=== PATIENT | male | born 1950 | race Caucasian/White ===

== ENCOUNTER 2020-05-28 13:22 | Outpatient (CLI) | payer MEDICARE, SELFPAY ==
--- NOTE | ~2020-05-28 | CT_ITS ---
EXAMINATION: CT lung screening DATE: 05/28/2020 13:44 INDICATION: Personal history of nicotine dependence, current smoker with 50 pack year history TECHNIQUE: Computed tomography (CT) of the chest was performed without intravenous contrast. The dose -length product (DLP) was 109.52 mGy-cm. Automated exposure control and iterative reconstruction tech [employer] were employed. COMPARISON: 05/24/2019 FINDINGS: There is mild emphysema. Stable small pulmonary nodules are present, the largest of which m easures 3 mm in the left lower lobe on image 63. No new pulmonary nodules are identified. The lungs a re free of acute opacities. There is no pleural effusion or pneumothorax. There is mild mediastinal l ymphadenopathy, likely reactive. The heart size is normal. Calcified coronary artery atherosclerosis is noted. There is a small amount of mucus in the right mainstem bronchus. An 8.5 cm cyst is noted in the upper pole of the right kidney. There is a partially imaged endoluminal stent graft in the abdom inal aorta. IMPRESSION: 1. Lung-RADS category 2: Benign appearance or behavior. Continue annual screening with noncontrast lo w-dose chest CT in 12 months. Reviewed, dictated and finalized at location A. IMPRESSION: 1. Lung-RADS category 2: Benign appearance or behavior. Continue annual screeni ng with noncontrast low-dose chest CT in 12 months.
== END 2020-05-28 13:23 | disposition home or self-care (01) ==
PROVIDERS: PCP Family Medicine; Visit Provider Internal Medicine Critical Care Medicine
DX: Z12.2 Encounter for screening for malignant neoplasm of respiratory organs (principal); Z87.891 Personal history of nicotine dependence
CPT/HCPCS: G0297

== ENCOUNTER 2022-03-17 13:52 | Outpatient (CLI) | payer MEDICARE, SELFPAY ==
--- NOTE | ~2022-03-17 | CT_ITS ---
EXAMINATION:CT lung screening DATE: 03/17/2022 14:15 INDICATION: Tobacco use. Current smoker with 50 pack year history. TECHNIQUE: Computed tomography (CT) of the chest was performed without intravenous contrast. Automate d exposure control and iterative reconstruction technique were employed. The dose-length product (DLP ) was 98.16 mGy-cm. COMPARISON: Chest CT 05/28/2020 FINDINGS: There is moderate emphysema. There is stable scarring at the lung apices. Again seen is a 4 mm nodule in right middle lobe. Again seen is a 5 mm nodule at minor fissure. There is mild atelecta sis in lingula. No pleural effusion. The heart size is normal. There are coronary artery calcificatio ns. No pericardial effusion. Partially visualized is a stent graft in abdominal aorta. There are cyst s in the kidneys measuring up to 9.6 cm on the right. There is mild bilateral gynecomastia. There is mild thoracic spondylosis. IMPRESSION: 1. Lung-RADS category 2: Benign appearance or behavior. Continue annual screening with noncontrast lo w-dose chest CT in 12 months. Reviewed, dictated and finalized at location A. IMPRESSION: 1. Lung-RADS category 2: Benign appearance or behavior. Continue annual screeni ng with noncontrast low-dose chest CT in 12 months.
== END 2022-03-17 13:53 | disposition home or self-care (01) ==
LOC: ANHIMG 13:59
PROVIDERS: PCP Family Medicine; Visit Provider Physician Assistant
DX: Z12.2 Encounter for screening for malignant neoplasm of respiratory organs (principal); Z87.891 Personal history of nicotine dependence
CPT/HCPCS: 71271

== ENCOUNTER 2022-06-19 10:33 | Outpatient (CLI) | payer MEDICARE, SELFPAY ==
--- NOTE | ~2022-06-19 | CT_ITS ---
EXAMINATION: CT diagnostic chest wo con DATE: 06/19/2022 10:53 INDICATION: Shortness of breath and wheezing TECHNIQUE: Computed tomography (CT) of the abdomen and pelvis was performed without and with intraven ous contrast using a total of 130 mL Omnipaque-350 intravenous contrast with a double-bolus technique for simultaneous opacification of the renal parenchyma and renal collecting system. Automated exposu re control and iterative reconstruction technique were employed. Exam dose: 204.18 mGy-cm total exam DLP. COMPARISON: 03/17/2022 CT lung screening examinations FINDINGS: Moderate to moderately severe emphysema. Bilateral apical scarring, more prominent in the posterior right apical area, stable since 03/17/2022. Stable 4 mm middle lobe nodule and small likely benign fissural node of the minor fissure, stable sin ce 03/17/2022. Stable approximately 3 mm nodular density adjacent to the left greater fissure (series 4 image 56). No significant new or developing pulmonary density. No pulmonary infiltrate or consolidation. Thoracic aortic and coronary artery and great vessel calcifications. No thoracic aortic aneurysm. Hea rt size is normal. No pericardial effusion. No hilar or mediastinal mass lesion or lymphadenopathy is detected. Bilateral renal cysts, measuring up to 10 cm on the right. Moderately prominent biconcave compression fracture deformity of T6, new since 03/17/2022. IMPRESSION: New T6 compression fracture since 03/17/2022 Moderate to moderately severe emphysema; no significant new or developing pulmonary mass lesion since 03/17/2022 Reviewed, dictated and finalized at [facility]. Reviewed, dictated and finalized at location A. IMPRESSION: New T6 compression fracture since 03/17/2022 Moderate to moderately severe emphysema; no significant new or developing pulmo nary mass lesion since 03/17/2022
== END 2022-06-19 10:34 | disposition home or self-care (01) ==
PROVIDERS: PCP Family Medicine; Visit Provider Physician Assistant
DX: J44.9 Chronic obstructive pulmonary disease, unspecified (principal); R06.02 Shortness of breath; J43.9 Emphysema, unspecified
CPT/HCPCS: 71250

== ENCOUNTER 2022-06-26 10:39 | Outpatient (CLI) | payer MEDICARE, SELFPAY ==
--- NOTE | ~2022-06-26 | XR_ITS ---
XR thoracic spine 3V DATE: 06/26/2022 11:15 INDICATION: Thoracic spine pain TECHNIQUE: AP, lateral, swimmer views COMPARISON: 06/2022 CT chest 03/17/2022 CT lung screening FINDINGS: There is diffuse osteopenia. There is moderate loss of height and anterior wedging of T6 consistent with compression fracture. No other fracture or dislocation. The thoracic pedicles appear intact. No paraspinal soft tissue thic kening is noted. IMPRESSION: Diffuse osteopenia T6 compression fracture, new since 03/17/2022 Reviewed, dictated and finalized at location A. NAVIGATOR
--- NOTE | ~2022-06-26 | XR_ITS ---
XR lumbar spine min 4V DATE: 06/26/2022 11:15 INDICATION: Back pain TECHNIQUE: AP, lateral and coned lateral lumbosacral views. Bilateral oblique views. COMPARISON: None FINDINGS: Diffuse osteopenia. Normal alignment of the lumbar spine. No fracture or bone destruction is evident. No spondylolysis or spondylolisthesis. The lumbar pedicles are intact. Aortobiiliac endovascular stent. IMPRESSION: Osteopenia Aortobiiliac endovascular stent Reviewed, dictated and finalized at location A. ER EDUCATION TEACHER
== END 2022-06-26 10:40 | disposition home or self-care (01) ==
PROVIDERS: PCP Family Medicine; Visit Provider Family Medicine
DX: M85.88 Other specified disorders of bone density and structure, other site (principal); S22.050A Wedge compression fracture of T5-T6 vertebra, initial encounter for closed fracture; X58.XXXA Exposure to other specified factors, initial encounter
CPT/HCPCS: 72072; 72110

== ENCOUNTER 2022-07-06 09:51 | Outpatient (CLI) | payer MEDICARE, SELFPAY ==
[2022-07-06 10:36] LABS: Basophils Percent Auto 0.6 % (0.2-1.2); Eosinophils Absolute Auto 0.6 K/mm3 (0-0.3); Hematocrit 39.9 % (42.0-52.0); Hemoglobin 14.3 g/dL (14.0-18.0); Immature Granulocyte Absolute 0.02 K/mm3 (0.00-0.031); Immature Granulocyte Percent A 0.3 % (0-0.5); Lymphocytes Percent Auto 15.4 % (18.3-44.2); Mean Corpuscular HGB Conc 35.8 g/dl (32-36); Mean Corpuscular Hemoglobin 34.9 pg (26-34); Mean Corpuscular Volume 97.3 fl (80-100); Mean Platelet Volume 9.8 fl (7.4-10.4); Monocytes Absolute Auto 0.6 K/mm3 (0.1-0.6); Monocytes Percent Auto 8.8 % (2.6-8.5); Neutrophils Absolute Auto 4.8 K/mm3 (1.3-6.7); Neutrophils Percent Auto 66.9 % (45.5-73.1); Platelet Count Result 350 k/mm3 (150-375); Red Cell Distribution Width 13.1 % (11.5-14.5); White Blood Count 7.2 K/mm3 (4.5-10.0)
[2022-07-06 10:55] LABS: Alanine Aminotransferase 56 U/L (6-50); Alkaline Phosphatase 103 U/L (38-126); Anion Gap 8 mmol/L (8-16); Aspartate Amino Transferase 47 U/L (17-59); Bilirubin,Total 0.3 mg/dL (0.2-1.3); Blood Urea Nitrogen 15 mg/dL (9-20); Carbon Dioxide 27 mmol/L (22-30); Chloride 98 mmol/L (98-107); Estimated Glomerular Filt Rate > 60; Glucose 115 mg/dL (65-110); Phosphorus 2.8 mg/dL (2.5-4.5); Potassium 3.4 mmol/L (3.4-5.0); Sodium 133 mmol/L (137-145)
[2022-07-06 11:57] LABS: Erythrocyte Sedimentation Rate 16 mm/hr (0-20)
== END 2022-07-06 09:52 | disposition home or self-care (01) ==
PROVIDERS: PCP Family Medicine; Visit Provider Family Medicine
DX: S22.000A Wedge compression fracture of unspecified thoracic vertebra, initial encounter for closed fracture (principal); R53.83 Other fatigue; E55.9 Vitamin D deficiency, unspecified; I10 Essential (primary) hypertension; R73.03 Prediabetes; X58.XXXA Exposure to other specified factors, initial encounter
CPT/HCPCS: 36415; 80053; 82306; 84100; 85025; 85652

== ENCOUNTER 2022-07-07 15:04 | Outpatient (CLI) | payer MEDICARE, SELFPAY ==
--- NOTE | ~2022-07-07 | CT_ITS ---
EXAMINATION: CT thoracic spine wo con DATE: 07/07/2022 15:22 INDICATION: Thoracic compression fracture. TECHNIQUE: Computed tomography (CT) of the thoracic spine was performed without intravenous contrast. Automated exposure control and iterative reconstruction technique were employed. The dose-length pro duct was 507.09 mGy-cm. COMPARISON: Chest CT 06/19/2022 FINDINGS: There is mild scarring at the lung apices. There is mild emphysema. Partially visualized ar e cysts and hemorrhagic cysts in the kidneys measuring up to at least 7.3 cm on the right. There is 6 degrees dextrocurvature of thoracic spine. There is a burst fracture of T6 with 2/5 loss of height a nd increased sclerosis. There is a benign bone island in T4 vertebral body. There is mildly decreased disc height at multiple levels. There is multilevel mild facet joint osteoarthritis. On the right, t here is moderate neural foraminal stenosis at T6-T7, T7-T8, and T8-T9. On the left, there is moderate neural foraminal stenosis at T6-T7, T7-T8, and T8-T9. There is no central canal stenosis. IMPRESSION: 1. Subacute T6 burst fracture, stable from 06/19/2022. 2. Moderate mid thoracic spondylosis. Reviewed, dictated and finalized at location A. ICAL SPECIALIST MEDICAL DEVICE
== END 2022-07-07 15:05 | disposition home or self-care (01) ==
PROVIDERS: PCP Family Medicine; Visit Provider Family Medicine
DX: M47.894 Other spondylosis, thoracic region (principal); S22.051D Stable burst fracture of T5-T6 vertebra, subsequent encounter for fracture with routine healing; X58.XXXD Exposure to other specified factors, subsequent encounter
CPT/HCPCS: 72128

== ENCOUNTER 2022-09-30 16:21 | Inpatient (IN) | payer MEDICARE, SELFPAY ==
[2022-09-30] VITALS (35 sets, daily range): BP systolic 100–160; BP diastolic 62–106; PULSE 53–99; RESP 12–31; TEMP 36.6; O2SAT 85–100; BMI 22.8
--- NOTE | ~2022-09-30 | XR_ITS ---
EXAMINATION: XR chest 1V portable INDICATION: Shortness of breath and hypoxia TECHNIQUE: Portable AP chest at 1637 hours COMPARISON: CT, 06/19/2022 FINDINGS: There is scarring of the lung apices. No pleural effusion or pneumothorax. There are eventr ations of the right hemidiaphragm. The cardiomediastinal silhouette is stable. IMPRESSION: 1. No acute cardiopulmonary abnormality. Reviewed, dictated and finalized at location B. TER AUTOMATIC
--- NOTE | 2022-09-30 16:29 | ECG_ITS ---
Measurements Intervals [place] Rate: 101 P: NV: 0 QRS: 17 QRSD: 134 T: -19 QT: 355 QTc: 462 Interpretive Statements RHYTHM INDETERMINATE; POSSIBLE SINUS RHYTHM WITH FREQUENT APCS AND PVCS. ATRIAL FIBRILLATION NOT EXCLUDED RIGHT BUNDLE BRANCH BLOCK [120+ ms QRS DURATION, UPRIGHT V1, 40+ ms S IN I/aVL/V4/V5/V6] ST SEGMENT CHANGE COMPARED TO ECG 01/24/2019 18:12:30 THE RHYTHM HAS CHANGED Electronically Signed On 09-30-2022 19:50:02 CORPORATE PHYSICAL SECURITY SUPERVISOR by Che Hilton M.D.
[2022-09-30] MEDS: ALBUTEROL SULFATE NEB 2.5 MG/3 ML INH 15 MG INHALATION (16:38)
[2022-09-30] MEDS: IPRATROPIUM BR 0.02% INH SOLN 0.5 MG/2.5 ML VIAL 1.5 MG INHALATION (16:38)
[2022-09-30] MEDS: methylPREDNISolone SOD SUCC 125 MG VIAL IV PUSH (16:40)
[2022-09-30 16:55] LABS: Alveolar/Arterial O2 Gradient 152.6 mmHg; Base Excess ABG 1.8 mEq/l (+/-2.0); Carboxyhemoglobin 2.7 % THb (0-2.0); Fractional Inspired Oxygen 40 %; HCO3 ABG 28.6 mEq/l (22.0-26.0); Methemoglobin ABG 0.3 %THb (0-1.5); Oxygen Content ABG 20.6 %vol (16.0-22.0); Oxygen Saturation ABG 93.6 % (95.0-100.0); Oxyhemoglobin 90.7 % THb (90.0-100.0); PCO2 ABG 52.7 mmHg (35.0-45.0); Reduced Hemoglobin 6.3 %THb (0-5.0); Total Hemoglobin 16.2 g/dL (12.0-18.0); pH ABG 7.352 (7.350-7.450)
[2022-09-30 16:56] LABS: Device NASAL CANNULA; Modified Allen's Test Pass; Site Drawn RIGHT RADIAL
[2022-09-30 16:56] LABS: Basophils Absolute Auto 0.1 K/mm3 (0.0-0.1); Basophils Percent Auto 1.1 % (0.2-1.2); Eosinophils Absolute Auto 1.2 K/mm3 (0-0.3); Eosinophils Percent Auto 12.5 % (0-4.4); Hematocrit 43.9 % (42.0-52.0); Hemoglobin 15.3 g/dL (14.0-18.0); Immature Granulocyte Absolute 0.02 K/mm3 (0.00-0.031); Immature Granulocyte Percent A 0.2 % (0-0.5); Lymphocytes Absolute Auto 1.02 K/mm3 (0.9-3.2); Lymphocytes Percent Auto 10.3 % (18.3-44.2); Mean Corpuscular HGB Conc 34.9 g/dl (32-36); Mean Corpuscular Hemoglobin 35.1 pg (26-34); Mean Corpuscular Volume 100.7 fl (80-100); Mean Platelet Volume 9.7 fl (7.4-10.4); Monocytes Absolute Auto 0.7 K/mm3 (0.1-0.6); Monocytes Percent Auto 6.9 % (2.6-8.5); Neutrophils Absolute Auto 6.9 K/mm3 (1.3-6.7); Platelet Count Result 263 k/mm3 (150-375); Red Blood Count 4.36 M/mm3 (4.6-6.20); Red Cell Distribution Width 12.5 % (11.5-14.5); White Blood Count 9.9 K/mm3 (4.5-10.0)
[2022-09-30 17:08] LABS: Alanine Aminotransferase 35 U/L (6-50); Albumin Level 4.2 g/dL (3.5-5.1); Alkaline Phosphatase 138 U/L (38-126); Anion Gap 6 mmol/L (8-16); Aspartate Amino Transferase 38 U/L (17-59); Bilirubin,Total 0.6 mg/dL (0.2-1.3); Blood Urea Nitrogen 11 mg/dL (9-20); Calcium 8.4 mg/dL (8.4-10.2); Carbon Dioxide 28 mmol/L (22-30); Chloride 98 mmol/L (98-107); Estimated CRCL calculation 72 ml/min; Estimated Glomerular Filt Rate > 60; Glucose 108 mg/dL (65-110); Potassium 4.2 mmol/L (3.4-5.0); Sodium 132 mmol/L (137-145)
[2022-09-30 17:13] LABS: Prothrombin Time 12.9 Seconds (11.1-14.7)
[2022-09-30 17:14] LABS: Partial Thromboplastin Time 32.4 SECONDS (22.3-36.8)
[2022-09-30 17:20] LABS: NT Pro B Type Natriuretic Pept 422 pg/mL (19.9-100); Troponin I < 0.012 ng/mL (0.000-0.034)
[2022-09-30 17:46] LABS: Influenza A QL RT-PCR Negative (Negative); Influenza B QL RT-PCR Negative (Negative); SARS-CoV-2 RNA PCR Negative
--- NOTE | 2022-09-30 18:27 | ED.SOB ---
HPI - SOB/Dyspnea General Chief Complaint: Shortness of Breath/Dyspnea Stated Complaint: sob Time Seen by Provider: 09/30/22 16:27 History of Present Illness HPI Narrative: Patient is a 72-year-old male who presents ER with shortness of breath. Ongoing for 2 days. Worsening today. Associated with chronic cough. Does not wear O2 at home. Currently satting in the 80s on room air moderate distress. Has history of COPD. Denies fevers or chills or sweats. No chest pain. No improvement with inhaler at home. Related Data Home Medications Medication Instructions Recorded Confirmed ascorbic acid (vitamin C) 1,000 mg 1,000 mg PO Q12H 05/28/20 07/13/22 tablet,extended release aspirin 81 mg tablet,delayed 81 mg PO DAILY 05/28/20 07/13/22 release (Adult Low Dose Aspirin) vitamin B comp and C no.3 15 mg-10 1 cap PO DAILY 05/28/20 07/13/22 mg-50 mg-5 mg-300 mg capsule (B Complex Plus Vitamin C) cholecalciferol (vitamin D3) 25 25 mcg PO DAILY 11/27/20 07/13/22 mcg (1,000 unit) capsule Allergies Allergy/AdvReac Type Severity Reaction Status Date / Time No Known Allergies Allergy Unknown Verified 09/30/22 21:54 Review of Systems Review of Systems: All systems reviewed & are unremarkable except as noted in HPI and below Constitutional: Constitutional: Denies chills, Denies fatigue and Denies fever(s) ENT: Denies nasal congestion and Denies sore throat Cardiovascular: Cardiovascular: Denies chest pain, Denies rapid heart rate and Denies radiating jaw, neck or arm pain Respiratory: Respiratory: Reports cough, Reports dyspnea and Reports wheezing Gastrointestinal: Gastrointestinal: Denies abdominal pain, Denies nausea and Denies vomiting [facility] Past Medical History Medical History AAA (abdominal aortic aneurysm, ruptured) (~2017) Abdominal aortic aneurysm Anxiety Asthma CAD (coronary artery disease) COPD (chronic obstructive pulmonary disease) GERD (gastroesophageal reflux disease) Heart attack HTN (hypertension) Lower urinary tract symptoms due to benign prostatic hyperplasia Lung nodule Peripheral vascular disease Prediabetes Surgical History Surgical History H/O endovascular stent graft for abdominal aortic aneurysm History of tonsillectomy Family History Family History Father Heart disease Hypertension Alcoholism Mother Heart disease Depression Anxiety Sibling Alcoholism Heart disease Social History Social History Smoking packs per day: 0.25 Smoking cigarettes per day: 5.0 Years smoked: 60 Smoking pack-years: 15.00 Smoking status: Current every day smoker Tobacco type: cigarettes Second hand tobacco smoke exposure: Yes Alcohol intake: never Substance use: never Substance use type: does not use Lack of Transportation: No Lack of Food: Never True Current Housing: I Have Housing Concerned About Future Housing: No Difficulty Paying Gas/Electric Bills: No Difficulty Paying for Meds: No Currently Unemployed: No Education: Associate Degree Difficulty w/ Childcare or Family Care: No Living arrangements: with family Occupation/Education: retired Gender identity (if verbalized by the patient): Male Spiritual care concerns: No Agree to blood products: Yes Exam Narrative: GENERAL: Chronically ill-appearing, well-nourished, and in moderate distress. HEAD: Normocephalic, atraumatic. EYES: PERRL and EOMI. ENT: Mucous membranes moist. CHEST: Diminished throughout with scattered wheezing. Moderate respiratory distress. HEART: Regular rate and rhythm. Normal peripheral pulses. ABDOMEN: Soft, nontender, nondistended. EXTREMITIES: Normal range of motion. No edema. SKIN: Warm, dry, no rash.
--- NOTE | 2022-09-30 19:30 | PM.IMHP ---
H&P: HPI History of Present Illness Date/Time: 09/30/22 19:30 Chief Complaint: Shortness of breath. Narrative: This is a pleasant 72-year-old male smoker with COPD, coronary artery disease, hypertension, and other comorbidities presented to the emergency department from home for evaluation of shortness of breath. Patient provides the following history. He maintains that his COPD is pretty well controlled on his home inhalers and he uses his rescue inhaler and nebulizers only as needed. Over the past couple of days he has developed increasing dyspnea on lesser and lesser exertion, wheezing, and increasing cough productive of mostly clear phlegm although on occasion it looks slightly brown. He has been using his nebulizers 4 times a day and he has been taking Mucinex without a lot of benefit. He denies sick contacts. He also denies fever, chills, sweats, sinus congestion, and sore throat. He has mild chest tightness with the shortness of breath but no exertional chest pain, pleuritic pain, or palpitations. He has perhaps mild orthopnea but no lower extremity edema. He was afebrile on arrival to the emergency department. SpO2 was 85% on room air and he is currently on 5 L nasal cannula. Chest x-ray showed no acute cardiopulmonary abnormalities. He was given a nebulizer treatment and IV Solu-Medrol with some improvement and he is being admitted in this setting for further care. Review of Systems Review of Systems: Twelve systems were reviewed and are negative except for as per HPI. [facility] Past Medical History Medical History (Updated 09/30/22 @ 22:18 by Noemy Maradiaga PA-C) Abdominal aortic aneurysm (2017) Anxiety Asthma Benign prostatic hyperplasia Chronic obstructive pulmonary disease Coronary artery disease Gastroesophageal reflux disease Hyperlipidemia Hypertension Lung nodule Peripheral vascular disease Prediabetes Tobacco abuse Surgical History Surgical History (Updated 09/30/22 @ 22:14 by Noemy Maradiaga PA-C) History of cardiac catheterization (2003) History of colonoscopy History of endovascular stent graft for abdominal aortic aneurysm History of heart artery stent (2003) History of tonsillectomy Family History Family History Father Heart disease Hypertension Alcoholism Mother Heart disease Depression Anxiety Sibling Alcoholism Heart disease Social History Social History (Updated 09/30/22 @ 22:15 by Noemy Maradiaga PA-C) Social History: Surrogate medical decision maker: Manish Infante (brother) or Quita Zavala (daughter). Code status: Full code. Smoking packs per day: 0.5 Smoking cigarettes per day: 10.0 Years smoked: 60 Smoking pack-years: 30.00 Smoking status: Current every day smoker Tobacco type: cigarettes Second hand tobacco smoke exposure: Yes Alcohol intake: never Substance use: never Substance use type: does not use Lack of Transportation: No Lack of Food: Never True Current Housing: I Have Housing Concerned About Future Housing: No Difficulty Paying Gas/Electric Bills: No Difficulty Paying for Meds: No Currently Unemployed: No Education: Associate Degree Difficulty w/ Childcare or Family Care: No Living arrangements: with family Occupation/Education: retired Spiritual care concerns: No Agree to blood products: Yes Meds Home Medications and Allergies Home Medications Medication Instructions Recorded Confirmed Type ascorbic acid (vitamin C) 1,000 mg 1,000 mg PO Q12H 05/28/20 07/13/22 History tablet,extended release aspirin 81 mg tablet,delayed 81 mg PO DAILY 05/28/20 07/13/22 History release (Adult Low Dose Aspirin) vitamin B comp and C no.3 15 mg-10 1 cap PO DAILY 05/28/20 07/13/22 History mg-50 mg-5 mg-300 mg capsule (B Complex Plus Vitamin C) cholecalciferol (vitamin D3) 25 25 mcg PO DAILY 11/14
[2022-09-30] MEDS: ALBUTEROL SULFATE NEB 2.5 MG/3 ML INH INHALATION (20:17)
[2022-09-30] MEDS: IPRATROPIUM BR 0.02% INH SOLN 0.5 MG/2.5 ML VIAL INHALATION (20:17)
--- NOTE | 2022-09-30 20:51 | PC.NURSE ---
Patient arrived on 3 Med-Surg 20:45
[2022-09-30] MEDS: ACETAMINOPHEN 325 MG TABLET 650 MG PO (22:11)
[2022-09-30] MEDS: ALPRAZolam (*CRX) 0.5 MG TABLET PO (23:18)
[2022-09-30] MEDS: ATORVASTATIN 20 MG TABLET PO (23:18)
[2022-09-30] MEDS: amLODIPine BESYLATE 5 MG TABLET 10 MG PO (23:18)
[2022-09-30] MEDS: AZITHROMYCIN 250 MG TABLET 500 MG PO (23:18)
[2022-09-30] MEDS: FAMOTIDINE 20 MG TABLET PO (23:18)
[2022-09-30] MEDS: guaiFENesin 12 HR 600 MG TABCR PO (23:18)
[2022-10-01] VITALS (17 sets, daily range): BP systolic 109–134; BP diastolic 66–88; PULSE 60–85; RESP 12–22; TEMP 35.9–36.5; O2SAT 90–98
[2022-10-01] MEDS: methylPREDNISolone SOD SUCC 125 MG VIAL 60 MG IV PUSH ×5 (00:02→23:02)
[2022-10-01] MEDS: IPRATROPIUM BR 0.02% INH SOLN 0.5 MG/2.5 ML VIAL INHALATION ×6 (00:30→23:20)
[2022-10-01] MEDS: ALBUTEROL SULFATE NEB 2.5 MG/3 ML INH INHALATION ×6 (00:30→23:20)
[2022-10-01] MEDS: NICOTINE (*PBKC) 21 MG PATCH 1 PATCH TRANSDERM ×2 (00:55→12:58)
[2022-10-01 07:33] LABS: Hematocrit 40.1 % (42.0-52.0); Hemoglobin 14.1 g/dL (14.0-18.0); Mean Corpuscular HGB Conc 35.2 g/dl (32-36); Mean Corpuscular Hemoglobin 34.6 pg (26-34); Mean Corpuscular Volume 98.3 fl (80-100); Platelet Count Result 261 k/mm3 (150-375); Red Blood Count 4.08 M/mm3 (4.6-6.20); Red Cell Distribution Width 12.4 % (11.5-14.5); White Blood Count 6.5 K/mm3 (4.5-10.0)
[2022-10-01 07:50] LABS: Anion Gap 4 mmol/L (8-16); Blood Urea Nitrogen 18 mg/dL (9-20); Calcium 8.9 mg/dL (8.4-10.2); Carbon Dioxide 28 mmol/L (22-30); Chloride 96 mmol/L (98-107); Estimated CRCL calculation 60 ml/min; Estimated Glomerular Filt Rate > 60; Glucose 161 mg/dL (65-110); Potassium 3.9 mmol/L (3.4-5.0); Sodium 128 mmol/L (137-145)
--- NOTE | 2022-10-01 08:00 | ECG_ITS ---
Measurements Intervals [place] Rate: 79 P: 109 DE: 159 QRS: 43 QRSD: 137 T: 40 QT: 391 QTc: 449 Interpretive Statements SINUS RHYTHM WITH FREQUENT VENTRICULAR PREMATURE COMPLEXES RIGHT BUNDLE BRANCH BLOCK [120+ ms QRS DURATION, UPRIGHT V1, 40+ ms S IN I/aVL/V4/V5/V6] COMPARED TO ECG 09/30/2022 16:27:50 NO SIGNIFICANT CHANGES Electronically Signed On 10-01-2022 14:55:57 PROFESSIONAL GOLF TOURNAMENT PLAYER by Dawit Sullivan M.D.
[2022-10-01] MEDS: AZITHROMYCIN 250 MG TABLET 500 MG PO (08:42)
[2022-10-01] MEDS: lisinopriL 10 MG TABLET PO (08:42)
[2022-10-01] MEDS: ENOXAPARIN 40 MG/0.4 ML SYRINGE SUB-Q (08:42)
[2022-10-01] MEDS: FOLIC ACID 1 MG TABLET PO (08:43)
[2022-10-01] MEDS: guaiFENesin 12 HR 600 MG TABCR PO ×2 (08:43→20:22)
[2022-10-01] MEDS: ALPRAZolam (*CRX) 0.5 MG TABLET PO ×2 (08:43→16:58)
[2022-10-01] MEDS: FAMOTIDINE 20 MG TABLET PO ×2 (08:43→16:58)
[2022-10-01] MEDS: ASCORBIC ACID 500 MG TABLET 1000 MG PO (08:43)
[2022-10-01] MEDS: ASPIRIN 81 MG ENTERIC TABLET PO (08:43)
[2022-10-01] MEDS: CHOLECALCIFEROL 1,000 UNITS TABLET 1000 UNITS PO (08:43)
--- NOTE | 2022-10-01 15:15 | PCRCNOTE ---
Window of time for administration has passed. See next scheduled administration.
--- NOTE | 2022-10-01 15:43 | PM.IMPN ---
Progress Note: A&P Assessment and Plan (1) Acute respiratory failure with hypoxia: Code(s): J96.01 - Acute respiratory failure with hypoxia Status: Acute Assessment and Plan: patient hypoxic on presentation requiring up to 5 L supplemental O2 likely secondary to acute COPD exacerbation as described below continue with supplemental O2 as needed. Wean to goal patient does not have home oxygen (2) Acute exacerbation of chronic obstructive pulmonary disease: Code(s): J44.1 - Chronic obstructive pulmonary disease with (acute) exacerbation Status: Acute Assessment and Plan: Patient presented with diffuse wheezing and worsened shortness of breath, consistent with COPD exacerbation continue IV Solu-Medrol, wean to 60 mg q.8 hours scheduled bronchodilators continue p.o. azithromycin given increased sputum production (3) Tobacco abuse: Code(s): Z72.0 - Tobacco use Status: Acute Assessment and Plan: patient previously quit smoking in 2019 and has since restarted smoking about a half a pack a day or less continue with nicotine patch during admission per patient request discussed smoking cessation with the patient at length. Cessation is imperative (4) Hypertension: Code(s): I10 - Essential (primary) hypertension Status: Acute Assessment and Plan: blood pressures are stable today. Last BP 124/66 continue lisinopril and amlodipine monitor BP trends (5) Abnormal EKG: Code(s): R94.31 - Abnormal electrocardiogram [ECG] [EKG] Status: Acute Assessment and Plan: EKG shows an indeterminate rhythm, possible sinus rhythm with frequent APCs and PVCs. patient is asymptomatic and denies palpitations. Rate is controlled repeat EKG completed this morning and patient is in sinus rhythm with frequent PVCs monitor electrolytes Subjective Date/time seen: 10/01/22 15:43 Interval history: date of service: 10/01/2022 clearance Ozzie Infante is 72-year-old male with a history of AAA rupture s/p stenting, COPD, CAD, BPH, hypertension, peripheral vascular disease, and tobacco abuse who is seen in follow-up for COPD exacerbation. Patient states he is feeling slightly worse today. He has increased shortness of breath. He does endorse dyspnea on exertion. Endorses chest, nasal, and sinus congestion. He feels he is just not getting enough oxygen down deep in his lungs. He does have a cough that is productive of clear bubbly phlegm. He is having hard time laying down flat. Does endorse some right-sided pleuritic chest pain which is worsened if he raises his right arm or takes a deep breath. He denies nausea, vomiting, fever, or chills. His appetite is good. He does have chronic back pain that is unchanged. Review of Systems Review of Systems: All systems reviewed & are unremarkable except as noted in HPI and below Exam Narrative: General: Well-nourished, chronically ill-appearing 72-year-old male, sitting up in bed, comfortable, NARD Neuro: awake, alert and oriented x4, speech clear, no focal neuro deficits noted HEENMT: normocephalic, atraumatic, EOMI, sclerae anicteric, moist oral mucosa Respiratory: diminished breath sounds bilaterally, no wheezes or rhonchi, nonlabored breathing Cardio: regular rate, regular rhythm with S1-S2 Abdomen: nondistended, normoactive bowel sounds, soft, nontender to palpation Extremities: no edema, erythema, or tenderness to palpation, DP pulses 2+ bilaterally Skin: no rashes or lesions, warm and dry Psych: appropriate mood and affect, judgment and insight intact Objective Data Vital Signs Vital Signs: Vital Signs - 24 hr 09/30/22 16:25 09/30/22 16:33 09/30/22 16:37 Temperature 97.8 F Pulse Rate 85 Respiratory Rate 22 H Blood Pressure 125/71 Pulse Oximetry 85 L 93 93 Oxygen Delivery Room Air Nasal Cannula Nasal Cannula Oxygen Flow Rate 6 5 09/30/22 16
[2022-10-01] MEDS: amLODIPine BESYLATE 5 MG TABLET 10 MG PO (20:23)
[2022-10-01] MEDS: ATORVASTATIN 20 MG TABLET PO (20:23)
[2022-10-02] VITALS (18 sets, daily range): BP systolic 113–125; BP diastolic 50–71; PULSE 54–88; RESP 14–24; TEMP 36.1–36.4; O2SAT 91–98
[2022-10-02] MEDS: ALBUTEROL SULFATE NEB 2.5 MG/3 ML INH INHALATION ×5 (03:23→20:06)
[2022-10-02] MEDS: IPRATROPIUM BR 0.02% INH SOLN 0.5 MG/2.5 ML VIAL INHALATION ×5 (03:23→20:06)
[2022-10-02] MEDS: ACETAMINOPHEN 325 MG TABLET 650 MG PO (04:40)
[2022-10-02] MEDS: methylPREDNISolone SOD SUCC 125 MG VIAL 60 MG IV PUSH ×3 (05:16→20:59)
[2022-10-02 07:40] LABS: Magnesium 2.2 mg/dL (1.6-2.3)
[2022-10-02] MEDS: ASPIRIN 81 MG ENTERIC TABLET PO (08:17)
[2022-10-02] MEDS: ASCORBIC ACID 500 MG TABLET 1000 MG PO (08:17)
[2022-10-02] MEDS: FAMOTIDINE 20 MG TABLET PO ×2 (08:17→16:36)
[2022-10-02] MEDS: guaiFENesin 12 HR 600 MG TABCR PO ×2 (08:17→20:49)
[2022-10-02] MEDS: VITAMIN B COMPLEX/VIT C CAPSULE 1 EACH PO (08:17)
[2022-10-02] MEDS: lisinopriL 10 MG TABLET PO (08:17)
[2022-10-02] MEDS: ALPRAZolam (*CRX) 0.5 MG TABLET PO ×2 (08:17→16:35)
[2022-10-02] MEDS: FOLIC ACID 1 MG TABLET PO (08:18)
[2022-10-02] MEDS: AZITHROMYCIN 250 MG TABLET 500 MG PO (08:18)
[2022-10-02] MEDS: NICOTINE (*PBKC) 21 MG PATCH 1 PATCH TRANSDERM (08:18)
[2022-10-02] MEDS: ENOXAPARIN 40 MG/0.4 ML SYRINGE SUB-Q (08:18)
[2022-10-02] MEDS: CHOLECALCIFEROL 1,000 UNITS TABLET 1000 UNITS PO (08:18)
[2022-10-02 08:49] LABS: Hemoglobin 13.7 g/dL (14.0-18.0); Mean Corpuscular HGB Conc 34.3 g/dl (32-36); Mean Corpuscular Hemoglobin 35.3 pg (26-34); Mean Corpuscular Volume 103.1 fl (80-100); Mean Platelet Volume 10.5 fl (7.4-10.4); Platelet Count Result 266 k/mm3 (150-375); Red Blood Count 3.88 M/mm3 (4.6-6.20); Red Cell Distribution Width 12.7 % (11.5-14.5); White Blood Count 18.5 K/mm3 (4.5-10.0)
[2022-10-02 09:02] LABS: Anion Gap 4 mmol/L (8-16); Blood Urea Nitrogen 26 mg/dL (9-20); Calcium 8.8 mg/dL (8.4-10.2); Carbon Dioxide 28 mmol/L (22-30); Chloride 100 mmol/L (98-107); Estimated CRCL calculation 60 ml/min; Estimated Glomerular Filt Rate > 60; Glucose 162 mg/dL (65-110); Potassium 4.1 mmol/L (3.4-5.0); Sodium 132 mmol/L (137-145)
[2022-10-02] MEDS: polyethylene glycoL 3350 17 GM POWD.PACK PO (13:09)
--- NOTE | 2022-10-02 15:11 | PM.IMPN ---
Progress Note: A&P Assessment and Plan (1) Acute respiratory failure with hypoxia: Code(s): J96.01 - Acute respiratory failure with hypoxia Status: Acute Assessment and Plan: patient hypoxic on presentation requiring up to 5 L supplemental O2 likely secondary to acute COPD exacerbation as described below continue with supplemental O2 as needed. currently requiring 4 L per nasal cannula Wean to goal patient does not have home oxygen (2) Acute exacerbation of chronic obstructive pulmonary disease: Code(s): J44.1 - Chronic obstructive pulmonary disease with (acute) exacerbation Status: Acute Assessment and Plan: Patient presented with diffuse wheezing and worsened shortness of breath, consistent with COPD exacerbation continue IV Solu-Medrol 60 mg q.8 hours. increased leukocytosis secondary to steroids noted scheduled bronchodilators continue p.o. azithromycin given increased sputum production (3) Tobacco abuse: Code(s): Z72.0 - Tobacco use Status: Acute Assessment and Plan: patient previously quit smoking in 2019 and has since restarted smoking about a half a pack a day or less continue with nicotine patch during admission per patient request discussed smoking cessation with the patient at length. Cessation is imperative (4) Hypertension: Code(s): I10 - Essential (primary) hypertension Status: Acute Assessment and Plan: blood pressures are stable today. Last BP 113/64 continue lisinopril and amlodipine monitor BP trends (5) Abnormal EKG: Code(s): R94.31 - Abnormal electrocardiogram [ECG] [EKG] Status: Acute Assessment and Plan: EKG shows an indeterminate rhythm, possible sinus rhythm with frequent APCs and PVCs. patient is asymptomatic and denies palpitations. Rate is controlled repeat EKG completed on 10/01 patient is in sinus rhythm with frequent PVCs no significant electrolyte derangements. Continue to monitor Subjective Date/time seen: 10/02/22 15:11 Interval history: date of service: 10/02/2022 Raisa Infante is 72-year-old male with a history of AAA rupture s/p stenting, COPD, CAD, BPH, hypertension, peripheral vascular disease, and tobacco abuse who is seen in follow-up for COPD exacerbation. patient continues to endorse dyspnea on exertion today. Also endorses wheezing. States that he is coughing less frequently, however his cough is now productive of thick, yellowish sputum. He is able to ambulate independently. Denies dizziness, lightheadedness, or weakness. Appetite is good. He has no additional concerns. Review of Systems Review of Systems: All systems reviewed & are unremarkable except as noted in HPI and below Exam Narrative: General: Well-nourished, chronically ill-appearing 72-year-old male, sitting up at the bedside, comfortable, NARD Neuro: awake, alert and oriented x4, speech clear, no focal neuro deficits noted HEENMT: normocephalic, atraumatic, EOMI, sclerae anicteric, moist oral mucosa Respiratory: diminished breath sounds bilaterally, no wheezes or rhonchi, nonlabored breathing Cardio: regular rate, regular rhythm with S1-S2 Abdomen: nondistended, normoactive bowel sounds, soft, nontender to palpation Extremities: no edema, erythema, or tenderness to palpation, DP pulses 2+ bilaterally Skin: no rashes or lesions, warm and dry Psych: appropriate mood and affect, judgment and insight intact Objective Data Vital Signs Vital Signs: Vital Signs - 24 hr 10/01/22 15:22 10/01/22 19:42 10/01/22 19:43 Temperature Pulse Rate 81 75 Respiratory Rate 20 20 Blood Pressure Pulse Oximetry 90 Oxygen Delivery Nasal Cannula Oxygen Flow Rate 4 10/01/22 19:56 10/01/22 20:00 10/01/22 20:22 Temperature 97.7 F Pulse Rate 82 73 Respiratory Rate 20 14 Blood Pressure 109/68 Pulse Oximetry 90 94 Oxygen Delivery Nasal Ca
[2022-10-02] MEDS: amLODIPine BESYLATE 5 MG TABLET 10 MG PO (20:49)
[2022-10-02] MEDS: ATORVASTATIN 20 MG TABLET PO (20:49)
[2022-10-03] VITALS (22 sets, daily range): BP systolic 107–142; BP diastolic 62–89; PULSE 55–152; RESP 18–22; TEMP 36.3–36.5; O2SAT 90–97
[2022-10-03] MEDS: ALBUTEROL SULFATE NEB 2.5 MG/3 ML INH INHALATION ×4 (03:33→15:31)
[2022-10-03] MEDS: IPRATROPIUM BR 0.02% INH SOLN 0.5 MG/2.5 ML VIAL INHALATION ×4 (03:33→15:31)
[2022-10-03] MEDS: methylPREDNISolone SOD SUCC 125 MG VIAL 60 MG IV PUSH (05:42)
[2022-10-03] MEDS: ACETAMINOPHEN 325 MG TABLET 650 MG PO (05:47)
[2022-10-03 07:48] LABS: Hematocrit 38.7 % (42.0-52.0); Hemoglobin 13.4 g/dL (14.0-18.0); Mean Corpuscular HGB Conc 34.6 g/dl (32-36); Mean Corpuscular Hemoglobin 34.7 pg (26-34); Mean Corpuscular Volume 100.3 fl (80-100); Mean Platelet Volume 10.2 fl (7.4-10.4); Platelet Count Result 269 k/mm3 (150-375); Red Blood Count 3.86 M/mm3 (4.6-6.20); Red Cell Distribution Width 12.7 % (11.5-14.5); White Blood Count 16.9 K/mm3 (4.5-10.0)
[2022-10-03 07:59] LABS: Anion Gap 4 mmol/L (8-16); Blood Urea Nitrogen 34 mg/dL (9-20); Calcium 8.6 mg/dL (8.4-10.2); Carbon Dioxide 30 mmol/L (22-30); Chloride 98 mmol/L (98-107); Estimated CRCL calculation 66 ml/min; Estimated Glomerular Filt Rate > 60; Glucose 132 mg/dL (65-110); Potassium 4.6 mmol/L (3.4-5.0); Sodium 132 mmol/L (137-145)
[2022-10-03] MEDS: ALPRAZolam (*CRX) 0.5 MG TABLET PO ×2 (08:50→17:08)
[2022-10-03] MEDS: NICOTINE (*PBKC) 21 MG PATCH 1 PATCH TRANSDERM (08:52)
[2022-10-03] MEDS: CHOLECALCIFEROL 1,000 UNITS TABLET 1000 UNITS PO (08:53)
[2022-10-03] MEDS: AZITHROMYCIN 250 MG TABLET 500 MG PO (08:53)
[2022-10-03] MEDS: ASCORBIC ACID 500 MG TABLET 1000 MG PO (08:53)
[2022-10-03] MEDS: ASPIRIN 81 MG ENTERIC TABLET PO (08:54)
[2022-10-03] MEDS: VITAMIN B COMPLEX/VIT C CAPSULE 1 EACH PO (08:54)
[2022-10-03] MEDS: ENOXAPARIN 40 MG/0.4 ML SYRINGE SUB-Q (08:54)
[2022-10-03] MEDS: FAMOTIDINE 20 MG TABLET PO ×2 (08:54→17:11)
[2022-10-03] MEDS: lisinopriL 10 MG TABLET PO (08:54)
[2022-10-03] MEDS: FOLIC ACID 1 MG TABLET PO (08:55)
[2022-10-03] MEDS: DOCUSATE SODIUM 100 MG CAPSULE PO (08:55)
--- NOTE | 2022-10-03 15:12 | PM.IMPN ---
Progress Note: A&P Assessment and Plan (1) Acute respiratory failure with hypoxia: Code(s): J96.01 - Acute respiratory failure with hypoxia Status: Acute Assessment and Plan: patient hypoxic on presentation requiring up to 5 L supplemental O2 likely secondary to acute COPD exacerbation as described below continue with supplemental O2 as needed. currently requiring 4 L per nasal cannula. Wean oxygen as tolerated. He will need a home O2 eval prior to presentation patient does not currently have home oxygen (2) Acute exacerbation of chronic obstructive pulmonary disease: Code(s): J44.1 - Chronic obstructive pulmonary disease with (acute) exacerbation Status: Acute Assessment and Plan: Patient presented with diffuse wheezing and worsened shortness of breath, consistent with COPD exacerbation continue IV Solu-Medrol 40 mg q.12 hours. Leukocytosis secondary to steroids noted scheduled bronchodilators continue p.o. azithromycin given increased sputum production (3) Tobacco abuse: Code(s): Z72.0 - Tobacco use Status: Acute Assessment and Plan: patient previously quit smoking in 2019 and has since restarted smoking about a half a pack a day or less continue with nicotine patch during admission per patient request discussed smoking cessation with the patient at length. Cessation is imperative (4) Hypertension: Code(s): I10 - Essential (primary) hypertension Status: Acute Assessment and Plan: blood pressures are stable continue lisinopril and amlodipine monitor BP trends (5) Abnormal EKG: Code(s): R94.31 - Abnormal electrocardiogram [ECG] [EKG] Status: Acute Assessment and Plan: EKG shows an indeterminate rhythm, possible sinus rhythm with frequent APCs and PVCs. patient is asymptomatic and denies palpitations. Rate is controlled repeat EKG completed on 10/01 patient is in sinus rhythm with frequent PVCs no significant electrolyte abnormalities. Continue to monitor Subjective Date/time seen: 10/03/22 15:12 Interval history: date of service: 10/03/2022 Raisa Infante is 72-year-old male with a history of AAA rupture s/p stenting, COPD, CAD, BPH, hypertension, peripheral vascular disease, and tobacco abuse who is seen in follow-up for COPD exacerbation. Feels that his breathing has improved today. He does endorse cough is productive of thick, yellow phlegm. Feels his wheezing is improved but notices wheezing with exertion or after a coughing spell. States this usually improves after taking a couple deep breaths. Continues to endorse DICKERSON. States that he is struggling to remember to breathe through his nose as he is typically a mouth breather. He is eager for discharge home but admits that he is not feeling well enough to return home at this time. Denies abdominal pain, nausea, vomiting, fever, or chills. Tolerating his diet. No urinary symptoms. Reports regular bowel movements. Review of Systems Review of Systems: All systems reviewed & are unremarkable except as noted in HPI and below Exam Narrative: General: well-nourished, chronically ill-appearing 72-year-old male, sitting up at the bedside, comfortable, NARD Neuro: awake, alert and oriented x4, speech clear, no focal neuro deficits noted HEENMT: normocephalic, atraumatic, EOMI, sclerae anicteric, moist oral mucosa Respiratory: diminished breath sounds bilaterally, no wheezes or rhonchi, nonlabored breathing Cardio: regular rate, regular rhythm with S1-S2 Abdomen: nondistended, normoactive bowel sounds, soft, nontender to palpation Extremities: no edema, erythema, or tenderness to palpation, DP pulses 2+ bilaterally Skin: no rashes or lesions, warm and dry Psych: appropriate mood and affect, judgment and insight intact Objective Data Vital Signs Vital Signs: Vital Signs - 24 hr 10/02/22 16:48 10/02/22 17:02
[2022-10-03] MEDS: methylPREDNISolone SOD SUCC 40 MG VIAL IV PUSH (17:09)
--- NOTE | 2022-10-03 18:55 | ECG_ITS ---
Measurements Intervals [place] Rate: 118 P: -58 SC: 75 QRS: 40 QRSD: 139 T: 143 QT: 311 QTc: 437 Interpretive Statements PROBABLE ATRIAL FIBRILLATION WITH RAPID VENTRICULAR RESPONSE WITH PREMATURE VENTRICULAR CONTRACTIONS VERSUS ABERRANT CONDUCTION MARKED BASELINE ARTIFACT INDETERMINATE AXIS RIGHT BUNDLE BRANCH BLOCK ABNORMAL ECG COMPARED TO ECG 10/01/2022 10:38:29 ATRIAL FIBRILLATION WITH RAPID VENTRICULAR RESPONSE IS NOT PRESENT Electronically Signed On 10-04-2022 14:39:34 [employer] by Tyler Patterson M.D.
--- NOTE | 2022-10-03 19:43 | PM.EVENT ---
Event Note Event Note Event Note: the patient is stading at the bedside coughing and c/o sob. his monitor shows hr in the 130s' Unable to determine his rhythm at this time. I reviewed his last ekg and it was read as aberrant beats. Lopresser iv ordered for fast hr and high bp. Patient denies any hx of a fib.
[2022-10-03] MEDS: METOPROLOL TARTRATE INJ 5 MG/5 ML VIAL IV PUSH (19:50)
[2022-10-03 21:09] LABS: Basophils Percent Auto 0.1 % (0.2-1.2); Hematocrit 41.9 % (42.0-52.0); Hemoglobin 14.3 g/dL (14.0-18.0); Immature Granulocyte Absolute 0.12 K/mm3 (0.00-0.031); Immature Granulocyte Percent A 0.8 % (0-0.5); Lymphocytes Absolute Auto 0.37 K/mm3 (0.9-3.2); Lymphocytes Percent Auto 2.5 % (18.3-44.2); Mean Corpuscular HGB Conc 34.1 g/dl (32-36); Mean Corpuscular Hemoglobin 34.6 pg (26-34); Mean Corpuscular Volume 101.5 fl (80-100); Monocytes Absolute Auto 0.7 K/mm3 (0.1-0.6); Monocytes Percent Auto 4.5 % (2.6-8.5); Neutrophils Absolute Auto 13.8 K/mm3 (1.3-6.7); Neutrophils Percent Auto 92.1 % (45.5-73.1); Platelet Count Result 280 k/mm3 (150-375); Red Blood Count 4.13 M/mm3 (4.6-6.20); Red Cell Distribution Width 12.7 % (11.5-14.5)
[2022-10-03 21:15] LABS: Anion Gap 3 mmol/L (8-16); Blood Urea Nitrogen 31 mg/dL (9-20); Calcium 8.6 mg/dL (8.4-10.2); Carbon Dioxide 32 mmol/L (22-30); Chloride 98 mmol/L (98-107); Estimated CRCL calculation 66 ml/min; Estimated Glomerular Filt Rate > 60; Glucose 146 mg/dL (65-110); Potassium 4.5 mmol/L (3.4-5.0); Sodium 133 mmol/L (137-145)
[2022-10-03] MEDS: amLODIPine BESYLATE 5 MG TABLET 10 MG PO (21:24)
[2022-10-03] MEDS: ATORVASTATIN 20 MG TABLET PO (21:24)
[2022-10-03] MEDS: guaiFENesin 12 HR 600 MG TABCR PO (21:24)
[2022-10-04] VITALS (13 sets, daily range): BP systolic 110–118; BP diastolic 72–80; PULSE 55–124; RESP 16–18; TEMP 36.1–36.6; O2SAT 91–95
[2022-10-04] MEDS: LEVALBUTEROL NEB 1.25 MG/3 ML 0.63 MG INHALATION ×3 (03:15→15:17)
[2022-10-04] MEDS: IPRATROPIUM BR 0.02% INH SOLN 0.5 MG/2.5 ML VIAL INHALATION ×3 (03:16→15:17)
[2022-10-04] MEDS: methylPREDNISolone SOD SUCC 40 MG VIAL IV PUSH ×2 (05:37→17:11)
[2022-10-04 06:15] LABS: Hematocrit 42.3 % (42.0-52.0); Hemoglobin 14.3 g/dL (14.0-18.0); Mean Corpuscular HGB Conc 33.8 g/dl (32-36); Mean Corpuscular Hemoglobin 34.9 pg (26-34); Mean Corpuscular Volume 103.2 fl (80-100); Mean Platelet Volume 10.1 fl (7.4-10.4); Platelet Count Result 280 k/mm3 (150-375); Red Cell Distribution Width 12.8 % (11.5-14.5); White Blood Count 13.9 K/mm3 (4.5-10.0)
[2022-10-04 06:36] LABS: Anion Gap 1 mmol/L (8-16); Blood Urea Nitrogen 28 mg/dL (9-20); Calcium 8.5 mg/dL (8.4-10.2); Carbon Dioxide 32 mmol/L (22-30); Chloride 98 mmol/L (98-107); Estimated CRCL calculation 73 ml/min; Estimated Glomerular Filt Rate > 60; Glucose 116 mg/dL (65-110); Magnesium 2.3 mg/dL (1.6-2.3); Potassium 4.6 mmol/L (3.4-5.0); Sodium 131 mmol/L (137-145)
[2022-10-04] MEDS: guaiFENesin 12 HR 600 MG TABCR PO ×2 (08:48→20:27)
[2022-10-04] MEDS: AZITHROMYCIN 250 MG TABLET 500 MG PO (08:48)
[2022-10-04] MEDS: ENOXAPARIN 40 MG/0.4 ML SYRINGE SUB-Q (08:48)
[2022-10-04] MEDS: ASCORBIC ACID 500 MG TABLET 1000 MG PO (08:48)
[2022-10-04] MEDS: ASPIRIN 81 MG ENTERIC TABLET PO (08:48)
[2022-10-04] MEDS: FOLIC ACID 1 MG TABLET PO (08:48)
[2022-10-04] MEDS: lisinopriL 10 MG TABLET PO (08:49)
[2022-10-04] MEDS: DOCUSATE SODIUM 100 MG CAPSULE PO ×2 (08:49→20:25)
[2022-10-04] MEDS: CHOLECALCIFEROL 1,000 UNITS TABLET 1000 UNITS PO (08:49)
[2022-10-04] MEDS: FAMOTIDINE 20 MG TABLET PO ×2 (08:49→17:10)
[2022-10-04] MEDS: NICOTINE (*PBKC) 21 MG PATCH 1 PATCH TRANSDERM (08:49)
[2022-10-04] MEDS: ALPRAZolam (*CRX) 0.5 MG TABLET PO ×2 (08:52→17:10)
--- NOTE | 2022-10-04 12:34 | ECG_ITS ---
Measurements Intervals [place] Rate: 109 P: UT: 0 QRS: 28 QRSD: 134 T: 28 QT: 323 QTc: 435 Interpretive Statements ATRIAL FIBRILLATION WITH RAPID VENTRICULAR RESPONSE AND PREMATURE VENTRICULAR CONTRACTIONS VERSUS ABERRANT CONDUCTION RIGHT BUNDLE BRANCH BLOCK ABNORMAL ECG COMPARED TO ECG 10/03/2022 19:13:53 NO SIGNIFICANT CHANGES Electronically Signed On 10-04-2022 14:58:27 [employer] by Tyler Patterson M.D.
--- NOTE | 2022-10-04 13:33 | P.PNIM_ITS ---
Progress Note: A&P Assessment and Plan (1) Acute respiratory failure with hypoxia: Code(s): J96.01 - Acute respiratory failure with hypoxia Status: Acute Assessment and Plan: patient hypoxic on presentation requiring up to 5 L supplemental O2 * likely secondary to acute COPD exacerbation as described below * continue with supplemental O2 as needed. currently requiring 2 L per nasal cannula. Wean oxygen as tolerated. * he will need a home O2 eval prior to presentation * patient does not currently have home oxygen (2) Acute exacerbation of chronic obstructive pulmonary disease: Code(s): J44.1 - Chronic obstructive pulmonary disease with (acute) exacerbation Status: Acute Assessment and Plan: Patient presented with diffuse wheezing and worsened shortness of breath, consistent with COPD exacerbation * continue IV Solu-Medrol 40 mg q.12 hours. Leukocytosis secondary to steroids noted * plan to transition to p.o. prednisone 40 mg daily tomorrow * albuterol has been discontinued due to elevated heart rate. continue Xopenex and ipratropium p.r.n. * continue p.o. azithromycin given increased sputum production (3) Atrial fibrillation: Code(s): I48.91 - Unspecified atrial fibrillation Status: Acute Assessment and Plan: patient with onset of tachycardia in the 150s yesterday * required 1 dose of IV Lopressor 5 mg * EKG at that time with significant artifact, unable to determine rhythm * patient monitored on telemetry overnight with stable heart rate * repeat EKG today did demonstrate atrial fibrillation with rapid ventricular response, heart rate 109 * discussed case with Dr. Patterson, law office assistant. Appreciate consultation * discussed considering standing orders for Lopressor if sustained tachycardia, however patient has history of bradycardia with heart rate in the 30s-40s, therefore hold off on ordering beta-brittani at this time * rate is controlled currently * CHADS2-VASC score is 3. Pt is therefore a candidate for anticoagulation. Will increase his Lovenox to therapeutic dose while awaiting further Cardiology recommendations * echocardiogram pending (4) Abnormal EKG: Code(s): R94.31 - Abnormal electrocardiogram [ECG] [EKG] Status: Acute Assessment and Plan: EKG on presentation showed an indeterminate rhythm, possible sinus rhythm with frequent APCs and PVCs. * patient is asymptomatic and denied palpitations. Rate is controlled * repeat EKG completed on 10/01 patient is in sinus rhythm with frequent PVCs * see plan above * monitor on telemetry * no significant electrolyte abnormalities. Continue to monitor (5) Tobacco abuse: Code(s): Z72.0 - Tobacco use Status: Acute Assessment and Plan: patient previously quit smoking in 2019 and has since restarted smoking about a half a pack a day or less * continue with nicotine patch during admission per patient request * discussed smoking cessation with the patient at length. Cessation is imperative (6) Hypertension: Code(s): I10 - Essential (primary) hypertension Status: Acute Assessment and Plan: blood pressures are stable * continue lisinopril and amlodipine * monitor BP trends Subjective Date/time seen: 10/04/22 13:33 Interval history: date of service: 10/04/2022 Jeannamallory Infante is 72-year-old male with a history of AAA rupture s/p stenting, COPD, CAD, BPH, hypertension, peripheral vascular disease, and tobacco abuse who is seen in f
--- NOTE | 2022-10-04 13:33 | PM.IMPN ---
Progress Note: A&P Assessment and Plan (1) Acute respiratory failure with hypoxia: Code(s): J96.01 - Acute respiratory failure with hypoxia Status: Acute Assessment and Plan: patient hypoxic on presentation requiring up to 5 L supplemental O2 likely secondary to acute COPD exacerbation as described below continue with supplemental O2 as needed. currently requiring 2 L per nasal cannula. Wean oxygen as tolerated. he will need a home O2 eval prior to presentation patient does not currently have home oxygen (2) Acute exacerbation of chronic obstructive pulmonary disease: Code(s): J44.1 - Chronic obstructive pulmonary disease with (acute) exacerbation Status: Acute Assessment and Plan: Patient presented with diffuse wheezing and worsened shortness of breath, consistent with COPD exacerbation continue IV Solu-Medrol 40 mg q.12 hours. Leukocytosis secondary to steroids noted plan to transition to p.o. prednisone 40 mg daily tomorrow albuterol has been discontinued due to elevated heart rate. continue Xopenex and ipratropium p.r.n. continue p.o. azithromycin given increased sputum production (3) Atrial fibrillation: Code(s): I48.91 - Unspecified atrial fibrillation Status: Acute Assessment and Plan: patient with onset of tachycardia in the 150s yesterday required 1 dose of IV Lopressor 5 mg EKG at that time with significant artifact, unable to determine rhythm patient monitored on telemetry overnight with stable heart rate repeat EKG today did demonstrate atrial fibrillation with rapid ventricular response, heart rate [address] Patterson, cushion worker. Appreciate consultation discussed considering standing orders for Lopressor if sustained tachycardia, however patient has history of bradycardia with heart rate in the 30s-40s, therefore hold off on ordering beta-brittani at this time rate is controlled currently CHADS2-VASC score is 3. Pt is therefore a candidate for anticoagulation. Will increase his Lovenox to therapeutic dose while awaiting further Cardiology recommendations echocardiogram pending (4) Abnormal EKG: Code(s): R94.31 - Abnormal electrocardiogram [ECG] [EKG] Status: Acute Assessment and Plan: EKG on presentation showed an indeterminate rhythm, possible sinus rhythm with frequent APCs and PVCs. patient is asymptomatic and denied palpitations. Rate is controlled repeat EKG completed on 10/01 patient is in sinus rhythm with frequent PVCs see plan above monitor on telemetry no significant electrolyte abnormalities. Continue to monitor (5) Tobacco abuse: Code(s): Z72.0 - Tobacco use Status: Acute Assessment and Plan: patient previously quit smoking in 2020 and has since restarted smoking about a half a pack a day or less continue with nicotine patch during admission per patient request discussed smoking cessation with the patient at length. Cessation is imperative (6) Hypertension: Code(s): I10 - Essential (primary) hypertension Status: Acute Assessment and Plan: blood pressures are stable continue lisinopril and amlodipine monitor BP trends Subjective Date/time seen: 10/04/22 13:33 Interval history: date of service: 10/04/2022 Raisa Infante is 72-year-old male with a history of AAA rupture s/p stenting, COPD, CAD, BPH, hypertension, peripheral vascular disease, and tobacco abuse who is seen in follow-up for COPD exacerbation. patient feels that he is doing well today. States his breathing has improved. He does endorse dyspnea on exertion. He has cough productive of thick, yellow sputum. His wheezing has improved. He denies palpitations. Denies chest pain. Last night he episode of bradycardia and later in the evening was noted to be tachycardic and required a dose of Lopressor. The patient tells me that he has
--- NOTE | 2022-10-04 15:01 | PM.CNCAR ---
Assessment and Plan Assessment and plan (1) Paroxysmal atrial fibrillation: Code(s): I48.0 - Paroxysmal atrial fibrillation Status: Acute Assessment and Plan: New diagnosis paroxysmal atrial fibrillation with intermittent rapid ventricular response and concern for reported bradycardia while off telemetry. CHADS2 Vasc score 3 (age, hypertension, CAD) warranting systemic anticoagulation. Transition enoxaparin to Eliquis 5 mg b.i.d.. Counseled patient pathophysiology, management strategies including rate versus rhythm control, embolic stroke risk associated with atrial fibrillation and recommendation for systemic anticoagulation. We discussed associated bleeding risks in this regard as well. Continue telemetry 2D echocardiogram in a.m. to assess LV size/ function, valve pathology, pulmonary pressures, chamber size. Recommendation to follow. Insert management with AV melissa blocking agents as tolerated. Some concern with regards reported bradycardia will need to monitor for true present as this would indicate tachy-merlin syndrome which management would be more complicated as he may not tolerate AV melissa blocking agents. Recommendations to follow. Patient is not a candidate for sedation an electrical cardioversion particular given paroxysmal nature of his AFib as documented this hospitalization and severity of underlying lung disease now starting to improve with COPD exacerbation. Therefore, heart rate control strategy preferred must patient poorly tolerates his atrial fibrillation. Discussed tachycardia induced cardiomyopathy risk if heart rate poorly controlled and high likelihood of tachy-merlin syndrome as he reports. Patient was very reluctant and would not agreed to live me to initiate AV melissa blocking agents as he states he feels well at this time and want to see how things go overnight. I explained the risk with decompensated heart failure, declining activity tolerance and the risk for sustained tachyarrhythmia as above. I explained my greatest concern would be if he would convert to sinus rhythm on AV melsisa blocking agents with resulting symptomatic bradycardia. I explained this is this is a pacemaker would be beneficial and I suspect is likely in the near future. He again was reluctant to consider this is an option as well but I reminded him this would not be our 1st choice but given his history description of symptomatic bradycardia without any debris melissa blocking agents and the fact that he is in AFib with RVR and will require rate-controlling medications unless he converts to sinus rhythm and maintains sinus rhythm. I explained in great detail the risks and benefits with anticoagulation and that I would strongly advise he initiate systemic anticoagulation. He has agreed to initiate anticoagulation is concerned about cost as well. Will check with care coordination in a.m. as Eliquis 5 mg twice daily or Xarelto 20 mg in the evening with continuation of aspirin 81 mg daily would be recommended. We discussed increased bleeding risk with aspirin and concomitant anticoagulation given his history this be the best option less he does not tolerate. All questions answered to the patient, his and granddaughter at bedside. I explained generally I would prefer initiation of AV melissa blocking agent with calcium channel brittani or beta-brittani if able to tolerate yet he would agree at this time so will need to observe. If heart rate sustained greater than 150 beats per minute and or patient is notably symptomatic he wishes to hold off on any directed medical therapy to control his heart rate while not ideal is reasonable overnight provided patient is stable and relatively asymptomatic. Continue systemic anticoagulation with enoxaparin 1 milligram/kilogram subcutaneous q.12 hours for now transition to oral regimen based upon coverage. Spent 68 minutes in the care of this patient including at bedside examination, discussions, chart
[2022-10-04] MEDS: amLODIPine BESYLATE 5 MG TABLET 10 MG PO (20:25)
[2022-10-04] MEDS: ATORVASTATIN 20 MG TABLET PO (20:25)
[2022-10-04] MEDS: ENOXAPARIN 80 MG/0.8 ML SYRINGE 73 MG SUB-Q (20:26)
[2022-10-05] VITALS (14 sets, daily range): BP systolic 120–144; BP diastolic 60–104; PULSE 68–115; RESP 18–20; TEMP 36.2–36.4; O2SAT 92–96
--- NOTE | 2022-10-05 | ECHO_ITS ---
Patient Info Name: Logan Infante Age: 72 years : 1950 Gender: Male Ht: 70 in Wt: 159 lbs BSA: 1.89 m2 HR: 83 bpm BP: 133 / 82 mmHg Heart Rhythm: Atrial Fibrillation Technical Quality: Good Exam Date: 10/05/2022 10:57 AM Exam Location: [facility] Pulmonary Exam Room: [facility] [place] Patient Status: Inpatient Admit Date: 10/01/2022 Staff Ordering Physician: Stephani Kearns PA-C [employer]ire Retreader: Fanta Loyola RDCS Attending Provider: Stephani Kearns PA-C Referring Physician: Urmila KOLB; Exam Type: CA echo doppler color flow Study Info Indications - DYSRHYTHMIAS Complete two-dimensional, color flow and Doppler transthoracic echocardiogram is performed. Summary 1. Complete two-dimensional, color flow and Doppler transthoracic echocardiogram is performed. 2. Left ventricular chamber dimension is mildly enlarged. 3. Left ventricular systolic function is moderately reduced, estimated at 35-40%. 4. There is mildly increased left ventricular wall thickness. 5. The left ventricular diastolic function is abnormal. 6. Left atrial chamber dimension is mildly enlarged. 7. There is mild mitral valve regurgitation. 8. There is mild tricuspid valve regurgitation. 9. Mild pulmonary hypertension, estimated pulmonary arterial systolic pressure is 35 mmHg. Left Ventricle Left ventricular chamber dimension is mildly enlarged. Left ventricular systolic function is moderately reduced, estimated at 35-40%. There is mildly increased left ventricular wall thickness. The left ventricular diastolic function is abnormal. Right Ventricle Right ventricular chamber dimension is normal. Right ventricular systolic function is normal. Left Atria Left atrial chamber dimension is mildly enlarged. Right Atria Right atrial chamber dimension is normal. Atrial Septum Intact interatrial septum visualized by color flow imaging. Aortic Valve The aortic valve is trileaflet. There is mild aortic valve sclerosis. There is no aortic valve stenosis. There is trace aortic valve regurgitation. Pulmonic Valve The pulmonic valve is normal. There is no pulmonic valve stenosis. There is trace pulmonic regurgitation. Mitral Valve The mitral valve has thickened leaflets. There is no mitral valve stenosis. There is mild mitral valve regurgitation. Tricuspid Valve The tricuspid valve leaflets are normal. There is no significant tricuspid valve stenosis. There is mild tricuspid valve regurgitation. Mild pulmonary hypertension, estimated pulmonary arterial systolic pressure is 35 mmHg. Pericardium/Pleural The pericardium appears normal. There is no pericardial effusion. Inferior Vena Cava Dilated inferior vena cava with >50% collapse upon inspiration consistent with normal right atrial pressure, 10 mmHg. Aorta The aortic root size at the sinus of Valsalva is normal. Left Ventricular Outflow Tract Name Value Normal LVOT 2D LVOT Diameter 2.0 cm LVOT Doppler LVOT Peak Gradient 5 mmHg LVOT Mean Gradient 2 mmHg LVOT VTI
[2022-10-05 06:39] LABS: Hematocrit 43.5 % (42.0-52.0); Hemoglobin 14.9 g/dL (14.0-18.0); Mean Corpuscular HGB Conc 34.3 g/dl (32-36); Mean Corpuscular Hemoglobin 34.3 pg (26-34); Mean Platelet Volume 10.2 fl (7.4-10.4); Platelet Count Result 292 k/mm3 (150-375); Red Blood Count 4.35 M/mm3 (4.6-6.20); Red Cell Distribution Width 12.6 % (11.5-14.5); White Blood Count 11.9 K/mm3 (4.5-10.0)
[2022-10-05 06:45] LABS: Anion Gap 1 mmol/L (8-16); Blood Urea Nitrogen 28 mg/dL (9-20); Calcium 8.4 mg/dL (8.4-10.2); Carbon Dioxide 31 mmol/L (22-30); Chloride 99 mmol/L (98-107); Estimated CRCL calculation 73 ml/min; Estimated Glomerular Filt Rate > 60; Glucose 107 mg/dL (65-110); Potassium 4.3 mmol/L (3.4-5.0); Sodium 131 mmol/L (137-145)
[2022-10-05] MEDS: LEVALBUTEROL NEB 1.25 MG/3 ML 0.63 MG INHALATION ×2 (07:32→21:34)
[2022-10-05] MEDS: IPRATROPIUM BR 0.02% INH SOLN 0.5 MG/2.5 ML VIAL INHALATION ×2 (07:32→21:34)
[2022-10-05] MEDS: NICOTINE (*PBKC) 21 MG PATCH 1 PATCH TRANSDERM (08:54)
[2022-10-05] MEDS: FOLIC ACID 1 MG TABLET PO (08:55)
[2022-10-05] MEDS: ALPRAZolam (*CRX) 0.5 MG TABLET PO ×2 (08:55→17:21)
[2022-10-05] MEDS: VITAMIN B COMPLEX/VIT C CAPSULE 1 EACH PO (08:55)
[2022-10-05] MEDS: ENOXAPARIN 80 MG/0.8 ML SYRINGE 73 MG SUB-Q ×2 (08:55→21:29)
[2022-10-05] MEDS: AZITHROMYCIN 250 MG TABLET 500 MG PO (08:55)
[2022-10-05] MEDS: lisinopriL 10 MG TABLET PO (08:55)
[2022-10-05] MEDS: CHOLECALCIFEROL 1,000 UNITS TABLET 1000 UNITS PO (08:55)
[2022-10-05] MEDS: guaiFENesin 12 HR 600 MG TABCR PO ×2 (08:55→21:29)
[2022-10-05] MEDS: FAMOTIDINE 20 MG TABLET PO ×2 (08:55→17:21)
[2022-10-05] MEDS: ASCORBIC ACID 500 MG TABLET 1000 MG PO (08:56)
[2022-10-05] MEDS: ASPIRIN 81 MG ENTERIC TABLET PO (08:56)
[2022-10-05] MEDS: DOCUSATE SODIUM 100 MG CAPSULE PO (08:56)
[2022-10-05] MEDS: predniSONE 20 MG TABLET 40 MG PO (08:56)
--- NOTE | 2022-10-05 12:49 | PM.PNCARD ---
Progress Note: A&P Assessment and Plan (1) Paroxysmal atrial fibrillation: Code(s): I48.0 - Paroxysmal atrial fibrillation Status: Acute Assessment and Plan: New diagnosis paroxysmal atrial fibrillation with intermittent rapid ventricular response and concern for reported bradycardia while off telemetry. CHADS2 Vasc score 3 (age, hypertension, CAD) warranting systemic anticoagulation. Transition enoxaparin to Eliquis 5 mg b.i.d.. Continue telemetry 2D echocardiogram pending. Further recommendations to follow. Insert management with AV melissa blocking agents if needed and as tolerated. Some concern with regards reported bradycardia will need to monitor for true present as this would indicate tachy-merlin syndrome which management would be more complicated as he may not tolerate AV melissa blocking agents. (2) CAD (coronary artery disease): Qualifiers: Associated angina: unspecified whether angina present Coronary Disease-Associated Artery/Lesion type: unspecified vessel or lesion type [place] vs. transplanted heart: [place] heart Qualified Code(s): I25.10 - Atherosclerotic heart disease of [place] coronary artery without angina pectoris Code(s): I25.10 - Atherosclerotic heart disease of [place] coronary artery without angina pectoris Status: Acute Assessment and Plan: History of CAD with previous stent implantation continue ASA 81 mg daily, statin therapy with atorvastatin 20 mg at bedtime goal LDL less than 70. Patient reports he was scheduled for stress test with Dr. Mack in October as an outpatient. He denies anginal symptoms. (3) Acute respiratory failure with hypoxia: Code(s): J96.01 - Acute respiratory failure with hypoxia Status: Acute Assessment and Plan: acute on chronic hypoxic respiratory failure requiring O2 supplementation secondary to COPD exacerbation. Continue supportive medical therapy with bronchodilators, antibiotics, O2 supplementation, and steroids (4) HTN (hypertension): Qualifiers: Hypertension type: essential hypertension Qualified Code(s): I10 - Essential (primary) hypertension Code(s): I10 - Essential (primary) hypertension Status: Acute Assessment and Plan: BP well controlled. Continue lisinopril 10 mg daily, amlodipine 10 mg daily. (5) Tobacco abuse: Code(s): Z72.0 - Tobacco use Status: Acute Assessment and Plan: Smoke cessation counseling. Subjective Date/time seen: 10/05/22 12:49 Cardiology follow up for atrial fibrillation Breathing is better today. He remains on supplemental oxygen. Denies any palpitations or chest pain. Rate controlled. Review of Systems Review of Systems: All systems reviewed & are unremarkable except as noted in HPI and below Constitutional: Constitutional: Reports as per HPI and Reports no additional constitutional complaints Eyes: Eyes: Reports as per HPI and Reports no additional eye complaints ENT: Reports system reviewed and no additional complaints, except as documented and Reports as per HPI Cardiovascular: Cardiovascular: Reports as per HPI and Reports no additional cardiovascular complaints Respiratory: Respiratory: Reports as per HPI and Reports no additional respiratory complaints Gastrointestinal: Gastrointestinal: Reports as per HPI and Reports no additional gastrointestinal complaints Genitourinary: Genitourinary: Reports no additional male genitourinary complaints and Reports as per HPI Musculoskeletal: Musculoskeletal: Reports no additional musculoskeletal complaints and Reports as per HPI Integumentary/Breasts: Skin/Breast: Reports system reviewed and no additional complaints, except as docu and Reports as per HPI Neurologic: Reports system reviewed and no additional complaints, except as documented and Reports as per HPI Psychiatric: Psychiatric: Reports no additional psychiatric complaints and Reports as per
--- NOTE | 2022-10-05 15:34 | P.PNIM_ITS ---
Progress Note: A&P Assessment and Plan (1) Acute respiratory failure with hypoxia: Code(s): J96.01 - Acute respiratory failure with hypoxia Status: Acute Assessment and Plan: patient hypoxic on presentation requiring up to 5 L supplemental O2 * likely secondary to acute COPD exacerbation as described below * continue with supplemental O2 as needed. currently requiring 2 L per nasal cannula. Wean oxygen as tolerated. * he will need a home O2 eval prior to discharge * patient does not currently have home oxygen (2) Acute exacerbation of chronic obstructive pulmonary disease: Code(s): J44.1 - Chronic obstructive pulmonary disease with (acute) exacerbation Status: Acute Assessment and Plan: Patient presented with diffuse wheezing and worsened shortness of breath, consistent with COPD exacerbation * received IV Solu-Medrol was symptomatic improvement. Leukocytosis secondary to steroids noted. * transitioned to p.o. prednisone 40 mg daily for 5 days * albuterol has been discontinued due to tachycardia. continue Xopenex and ipratropium p.r.n. * received 5 days of p.o. azithromycin. Will discontinue at this time (3) Atrial fibrillation: Code(s): I48.91 - Unspecified atrial fibrillation Status: Acute Assessment and Plan: new onset. patient with onset of tachycardia in the 150s on 10/03 * appreciate cardiology consultation * echocardiogram is pending * discontinue Lovenox and transition to Eliquis 5 mg b.i.d. CHADS2 -Vasc score is 3. * continue to monitor on telemetry * patient does report frequent episodes of bradycardia, therefore patient being monitor closely on telemetry to determine appropriate medication regimen. Monitored for tachy-merlin syndrome in order to determine how patient may tolerate AV melissa blocking agents (4) Abnormal EKG: Code(s): R94.31 - Abnormal electrocardiogram [ECG] [EKG] Status: Acute Assessment and Plan: EKG on presentation showed an indeterminate rhythm, possible sinus rhythm with frequent APCs and PVCs. * patient is asymptomatic and denied palpitations. Rate is controlled * repeat EKG completed on 10/01 patient is in sinus rhythm with frequent PVCs * EKG on 10/04 with AFib. See plan above * monitor on telemetry * no significant electrolyte abnormalities. Continue to monitor (5) Tobacco abuse: Code(s): Z72.0 - Tobacco use Status: Acute Assessment and Plan: patient previously quit smoking in 2020 and has since restarted smoking about a half a pack a day or less * continue with nicotine patch during admission per patient request * discussed smoking cessation with the patient at length. Cessation is imperative (6) Hypertension: Code(s): I10 - Essential (primary) hypertension Status: Acute Assessment and Plan: blood pressures are stable * continue lisinopril and amlodipine * monitor BP trends Subjective Date/time seen: 10/05/22 15:34 Interval history: date of service: 10/05/2022 Raisa Infante is 72-year-old male with a history of AAA rupture s/p stenting, COPD, CAD, BPH, hypertension, peripheral vascular disease, and tobacco abuse who is seen in follow-up for COPD exacerbation and new onset atrial fibrillation. The patient states that he is doing well today. He has no symptoms from atrial fibrillation standpoint states that he has not any point in time. He denies palpitations. He does have some dyspnea on exertion. Reports that he has been trying to get u
--- NOTE | 2022-10-05 15:34 | PM.IMPN ---
Progress Note: A&P Assessment and Plan (1) Acute respiratory failure with hypoxia: Code(s): J96.01 - Acute respiratory failure with hypoxia Status: Acute Assessment and Plan: patient hypoxic on presentation requiring up to 5 L supplemental O2 likely secondary to acute COPD exacerbation as described below continue with supplemental O2 as needed. currently requiring 2 L per nasal cannula. Wean oxygen as tolerated. he will need a home O2 eval prior to discharge patient does not currently have home oxygen (2) Acute exacerbation of chronic obstructive pulmonary disease: Code(s): J44.1 - Chronic obstructive pulmonary disease with (acute) exacerbation Status: Acute Assessment and Plan: Patient presented with diffuse wheezing and worsened shortness of breath, consistent with COPD exacerbation received IV Solu-Medrol was symptomatic improvement. Leukocytosis secondary to steroids noted. transitioned to p.o. prednisone 40 mg daily for 5 days albuterol has been discontinued due to tachycardia. continue Xopenex and ipratropium p.r.n. received 5 days of p.o. azithromycin. Will discontinue at this time (3) Atrial fibrillation: Code(s): I48.91 - Unspecified atrial fibrillation Status: Acute Assessment and Plan: new onset. patient with onset of tachycardia in the 150s on 10/03 appreciate cardiology consultation echocardiogram is pending discontinue Lovenox and transition to Eliquis 5 mg b.i.d. CHADS2 -Vasc score is 3. continue to monitor on telemetry patient does report frequent episodes of bradycardia, therefore patient being monitor closely on telemetry to determine appropriate medication regimen. Monitored for tachy-merlin syndrome in order to determine how patient may tolerate AV melissa blocking agents (4) Abnormal EKG: Code(s): R94.31 - Abnormal electrocardiogram [ECG] [EKG] Status: Acute Assessment and Plan: EKG on presentation showed an indeterminate rhythm, possible sinus rhythm with frequent APCs and PVCs. patient is asymptomatic and denied palpitations. Rate is controlled repeat EKG completed on 10/01 patient is in sinus rhythm with frequent PVCs EKG on 10/04 with AFib. See plan above monitor on telemetry no significant electrolyte abnormalities. Continue to monitor (5) Tobacco abuse: Code(s): Z72.0 - Tobacco use Status: Acute Assessment and Plan: patient previously quit smoking in 2019 and has since restarted smoking about a half a pack a day or less continue with nicotine patch during admission per patient request discussed smoking cessation with the patient at length. Cessation is imperative (6) Hypertension: Code(s): I10 - Essential (primary) hypertension Status: Acute Assessment and Plan: blood pressures are stable continue lisinopril and amlodipine monitor BP trends Subjective Date/time seen: 10/05/22 15:34 Interval history: date of service: 10/05/2022 Raisa Infante is 72-year-old male with a history of AAA rupture s/p stenting, COPD, CAD, BPH, hypertension, peripheral vascular disease, and tobacco abuse who is seen in follow-up for COPD exacerbation and new onset atrial fibrillation. The patient states that he is doing well today. He has no symptoms from atrial fibrillation standpoint states that he has not any point in time. He denies palpitations. He does have some dyspnea on exertion. Reports that he has been trying to get up and walk around more. He has cough productive of clear phlegm today. Denies wheezing. He has no chest pain. No additional concerns. Review of Systems Review of Systems: All systems reviewed & are unremarkable except as noted in HPI and below Exam Narrative: General: well-nourished, chronically ill-appearing 72-year-old male, sitting up at the bedside, comfortable, NARD Neuro: awake, alert and
[2022-10-05] MEDS: ATORVASTATIN 20 MG TABLET PO (21:29)
[2022-10-05] MEDS: amLODIPine BESYLATE 5 MG TABLET 10 MG PO (21:29)
[2022-10-06] VITALS (10 sets, daily range): BP systolic 123–146; BP diastolic 78–90; PULSE 73–102; RESP 18; TEMP 35.7–36.6; O2SAT 92–95
[2022-10-06 06:23] LABS: Hematocrit 46.9 % (42.0-52.0); Hemoglobin 15.7 g/dL (14.0-18.0); Mean Corpuscular HGB Conc 33.5 g/dl (32-36); Mean Corpuscular Hemoglobin 34.2 pg (26-34); Mean Corpuscular Volume 102.2 fl (80-100); Mean Platelet Volume 10.1 fl (7.4-10.4); Platelet Count Result 289 k/mm3 (150-375); Red Blood Count 4.59 M/mm3 (4.6-6.20); Red Cell Distribution Width 12.7 % (11.5-14.5)
[2022-10-06 06:35] LABS: Anion Gap 1 mmol/L (8-16); Blood Urea Nitrogen 25 mg/dL (9-20); Calcium 8.4 mg/dL (8.4-10.2); Carbon Dioxide 33 mmol/L (22-30); Chloride 97 mmol/L (98-107); Estimated CRCL calculation 71 ml/min; Estimated Glomerular Filt Rate > 60; Glucose 84 mg/dL (65-110); Magnesium 2.1 mg/dL (1.6-2.3); Potassium 3.7 mmol/L (3.4-5.0); Sodium 131 mmol/L (137-145)
[2022-10-06] MEDS: FAMOTIDINE 20 MG TABLET PO (09:41)
[2022-10-06] MEDS: predniSONE 20 MG TABLET 40 MG PO (09:41)
[2022-10-06] MEDS: NICOTINE (*PBKC) 21 MG PATCH 1 PATCH TRANSDERM (09:41)
[2022-10-06] MEDS: ASPIRIN 81 MG ENTERIC TABLET PO (09:41)
[2022-10-06] MEDS: CHOLECALCIFEROL 1,000 UNITS TABLET 1000 UNITS PO (09:41)
[2022-10-06] MEDS: FOLIC ACID 1 MG TABLET PO (09:42)
[2022-10-06] MEDS: DOCUSATE SODIUM 100 MG CAPSULE PO (09:42)
[2022-10-06] MEDS: ASCORBIC ACID 500 MG TABLET 1000 MG PO (09:42)
[2022-10-06] MEDS: guaiFENesin 12 HR 600 MG TABCR PO (09:42)
[2022-10-06] MEDS: lisinopriL 10 MG TABLET PO (09:42)
[2022-10-06] MEDS: ALPRAZolam (*CRX) 0.5 MG TABLET PO (09:47)
--- NOTE | 2022-10-06 10:16 | PCNWS ---
Weekly nutritional screen. Patient is tolerating current Heart healthy diet with adequate intake at 100% most all meals. No weight loss reported. No nutritional needs at this time.
--- NOTE | 2022-10-06 14:28 | PM.PNCARD ---
Progress Note: A&P Assessment and Plan (1) Paroxysmal atrial fibrillation: Code(s): I48.0 - Paroxysmal atrial fibrillation Status: Acute Assessment and Plan: New diagnosis paroxysmal atrial fibrillation with intermittent rapid ventricular response and concern for reported bradycardia while off telemetry. CHADS2 Vasc score 3 (age, hypertension, CAD) warranting systemic anticoagulation. Plan to start patient on DOAC but he is refusing anticoagulation at this time despite being educated regarding his risk for stroke. He states he is hesitant because of the cost and side effects. 2D echo showed mildly reduced LVSF with EF 35 - 40%. Not in decompensated HF at this time. Continue APARNA, can consider adding more medical therapy to his regimen as an outpatient, however, he is very hesitant to taking any additional medications. (2) CAD (coronary artery disease): Qualifiers: Associated angina: unspecified whether angina present Coronary Disease-Associated Artery/Lesion type: unspecified vessel or lesion type [place] vs. transplanted heart: [place] heart Qualified Code(s): I25.10 - Atherosclerotic heart disease of [place] coronary artery without angina pectoris Code(s): I25.10 - Atherosclerotic heart disease of [place] coronary artery without angina pectoris Status: Acute Assessment and Plan: History of CAD with previous stent implantation continue ASA 81 mg daily, statin therapy with atorvastatin 20 mg at bedtime goal LDL less than 70. Patient reports he was scheduled for stress test with Dr. Mack in October as an outpatient. He denies anginal symptoms. (3) Acute respiratory failure with hypoxia: Code(s): J96.01 - Acute respiratory failure with hypoxia Status: Acute Assessment and Plan: acute on chronic hypoxic respiratory failure requiring O2 supplementation secondary to COPD exacerbation. Continue supportive medical therapy with bronchodilators, antibiotics, O2 supplementation, and steroids (4) HTN (hypertension): Qualifiers: Hypertension type: essential hypertension Qualified Code(s): I10 - Essential (primary) hypertension Code(s): I10 - Essential (primary) hypertension Status: Acute Assessment and Plan: BP well controlled. Continue lisinopril 10 mg daily, amlodipine 10 mg daily. (5) Tobacco abuse: Code(s): Z72.0 - Tobacco use Status: Acute Assessment and Plan: Smoke cessation counseling. Subjective Date/time seen: 10/06/22 14:28 Cardiology follow up for atrial fibrillation Feeling well today. His breathing has improved. No palpitations or chest pain. Eager to go home. Review of Systems Review of Systems: All systems reviewed & are unremarkable except as noted in HPI and below Constitutional: Constitutional: Reports as per HPI and Reports no additional constitutional complaints Eyes: Eyes: Reports as per HPI and Reports no additional eye complaints ENT: Reports system reviewed and no additional complaints, except as documented and Reports as per HPI Cardiovascular: Cardiovascular: Reports as per HPI and Reports no additional cardiovascular complaints Respiratory: Respiratory: Reports as per HPI and Reports no additional respiratory complaints Gastrointestinal: Gastrointestinal: Reports as per HPI and Reports no additional gastrointestinal complaints Genitourinary: Genitourinary: Reports no additional male genitourinary complaints and Reports as per HPI Musculoskeletal: Musculoskeletal: Reports no additional musculoskeletal complaints and Reports as per HPI Integumentary/Breasts: Skin/Breast: Reports system reviewed and no additional complaints, except as docu and Reports as per HPI Neurologic: Reports system reviewed and no additional complaints, except as documented and Reports as per HPI Psychiatric: Psychiatric: Reports no additional psychiatric complaints and Reports as per HPI Endocr
--- NOTE | 2022-10-06 15:11 | P.DS_ITS ---
DS: Admitting Diagnosis Discharge Date 10/06/2022 Admitting Diagnosis COPD exacerbation DS: Discharge Diagnosis Discharge Diagnosis (1) Acute respiratory failure with hypoxia: Code(s): J96.01 - Acute respiratory failure with hypoxia Status: Acute Assessment and Plan: Patient hypoxic on presentation requiring up to 5 L supplemental O2 * likely secondary to acute COPD exacerbation as described below * oxygen was weaned as tolerated patient eventually to maintain adequate O2 sats on room air * home O2 eval completed prior to discharge and patient has no ongoing oxygen requirements (2) Acute exacerbation of chronic obstructive pulmonary disease: Code(s): J44.1 - Chronic obstructive pulmonary disease with (acute) exacerbation Status: Acute Assessment and Plan: Patient presented with diffuse wheezing and worsened shortness of breath, consistent with COPD exacerbation * received IV Solu-Medrol and bronchodilators with symptomatic improvement * transitioned to p.o. prednisone 40 mg daily which she will continue for 5 days * completed 5 days of p.o. azithromycin during admission (3) Atrial fibrillation: Code(s): I48.91 - Unspecified atrial fibrillation Status: Acute Assessment and Plan: New onset. patient with onset of tachycardia in the 150s on 10/03 * patient was seen in consultation by Cardiology * monitored on telemetry and rate was controlled subsequently * patient does report frequent episodes of bradycardia, therefore patient will need to be closely monitored. He was not started on any medications for rate control due to this history. * Initially placed on therapeutic Lovenox and was transitioned to Eliquis 5 mg b.i.d. given his CHADS2-Vasc score of 3. Continue Eliquis on discharge. 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 * patient was asymptomatic and denied palpitations. Rate is controlled * repeat EKG completed on 10/01 patient is in sinus rhythm with frequent PVCs * EKG on 10/04 with AFib. See plan above * no significant electrolyte abnormalities (5) Tobacco abuse: Code(s): Z72.0 - Tobacco use Status: Acute Assessment and Plan: patient previously quit smoking in 2019 and has since restarted smoking about a half a pack a day or less * nicotine patch provided during admission per patient request * discussed smoking cessation with the patient at length. Cessation is imperative (6) Hypertension: Code(s): I10 - Essential (primary) hypertension Status: Acute Assessment and Plan: blood pressures stable * continue lisinopril and amlodipine (7) Systolic heart failure: Code(s): I50.20 - Unspecified systolic (congestive) heart failure Status: Acute Assessment and Plan: echo completed during admission which revealed moderately reduced EF 35-40% * discussed with cardiology. plan for outpatient management as no evidence of decompensated heart failure * will benefit from addition of Entresto at his outpatient appointment DS: Summary Hospital Course Hospital Course: date of admission: 09/30/2022 date of discharge: 10/06/2022 Logan Infante is 72-year-old male with a history of AAA ru
--- NOTE | 2022-10-06 15:11 | PM.DS ---
DS: Admitting Diagnosis Discharge Date 10/06/2022 Admitting Diagnosis COPD exacerbation DS: Discharge Diagnosis Discharge Diagnosis (1) Acute respiratory failure with hypoxia: Code(s): J96.01 - Acute respiratory failure with hypoxia Status: Acute Assessment and Plan: Patient hypoxic on presentation requiring up to 5 L supplemental O2 likely secondary to acute COPD exacerbation as described below oxygen was weaned as tolerated patient eventually to maintain adequate O2 sats on room air home O2 eval completed prior to discharge and patient has no ongoing oxygen requirements (2) Acute exacerbation of chronic obstructive pulmonary disease: Code(s): J44.1 - Chronic obstructive pulmonary disease with (acute) exacerbation Status: Acute Assessment and Plan: Patient presented with diffuse wheezing and worsened shortness of breath, consistent with COPD exacerbation received IV Solu-Medrol and bronchodilators with symptomatic improvement transitioned to p.o. prednisone 40 mg daily which she will continue for 5 days completed 5 days of p.o. azithromycin during admission (3) Atrial fibrillation: Code(s): I48.91 - Unspecified atrial fibrillation Status: Acute Assessment and Plan: New onset. patient with onset of tachycardia in the 150s on 10/03 patient was seen in consultation by Cardiology monitored on telemetry and rate was controlled subsequently patient does report frequent episodes of bradycardia, therefore patient will need to be closely monitored. He was not started on any medications for rate control due to this history. Initially placed on therapeutic Lovenox and was transitioned to Eliquis 5 mg b.i.d. given his CHADS2-Vasc score of 3. Continue Eliquis on discharge. 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 patient was asymptomatic and denied palpitations. Rate is controlled repeat EKG completed on 10/01 patient is in sinus rhythm with frequent PVCs EKG on 10/04 with AFib. See plan above no significant electrolyte abnormalities (5) Tobacco abuse: Code(s): Z72.0 - Tobacco use Status: Acute Assessment and Plan: patient previously quit smoking in 2019 and has since restarted smoking about a half a pack a day or less nicotine patch provided during admission per patient request discussed smoking cessation with the patient at length. Cessation is imperative (6) Hypertension: Code(s): I10 - Essential (primary) hypertension Status: Acute Assessment and Plan: blood pressures stable continue lisinopril and amlodipine (7) Systolic heart failure: Code(s): I50.20 - Unspecified systolic (congestive) heart failure Status: Acute Assessment and Plan: echo completed during admission which revealed moderately reduced EF 35-40% discussed with cardiology. plan for outpatient management as no evidence of decompensated heart failure will benefit from addition of Entresto at his outpatient appointment DS: Summary Hospital Course Hospital Course: date of admission: 09/30/2022 date of discharge: 10/06/2022 Logan Infante is 72-year-old male with a history of AAA rupture s/p stenting, COPD, CAD, BPH, hypertension, peripheral vascular disease, and tobacco abuse who presented to the emergency department on 09/30/2022 with complaints of worsened shortness of breath ongoing for 2 days. On presentation to the ED, he was hypoxic at 85% and was placed on 5 L supplemental O2. He was mildly tachypneic with additional vital signs stable, afebrile, CBC and BMP unremarkable, troponin negative, BNP 422, COVID inf
--- NOTE | 2022-10-06 15:14 | HOMEO2EVAL ---
Evaluation was performed at [facility] Home Oxygen Evaluation RC: Home Oxygen (O2) Evaluation Start: 10/06/22 14:19 Freq: ONCE Status: Active Protocol: RPE Activity Type Activity Date Activity User E-sign Co-sign Detail Recorded Client Recorded Date Recorded By Document 10/06/22 14:45 PIEDAD [email or web address] 10/06/22 15:14 PIEDAD Document 10/06/22 14:50 PIEDAD [email or web address] 10/06/22 15:14 PIEDAD Document 10/06/22 14:55 PIEDAD [email or web address] 10/06/22 15:14 PIEDAD 10/06/22 10/06/22 10/06/22 14:45 14:50 14:55 Home O2 Evaluation [Oxygen] -Test Phase Resting Exercise Resting -Oxygen Delivery Room Air Room Air Room Air [Pulse Oximetry] -Pulse Oximetry (90-100 %) 93 92 93 [Pulse Rate] -Pulse Rate (60-100 beats/min) 82 96 89 [Comments] -Home Oxygen Evaluation Comments NO HOME O2 NEEDED. [Charges] -Treatment Charges O2 Evaluation - Inpatient
--- NOTE | 2022-10-06 15:14 | PCRCNOTE ---
HOME O2 EVAL COMPLETED, NO HOME O2 NEEDED.
== END 2022-10-06 15:35 | disposition home or self-care (01) | DRG 190 ==
LOC: ANHED 18:32 → ANH3MEDSUR 20:22
PROVIDERS: Nurse Practitioner; Physician Assistant; Admitting Provider Family Medicine; Emergency Provider Emergency Medicine; PCP Family Medicine; Visit Provider Physician Assistant
DX: J44.1 Chronic obstructive pulmonary disease with (acute) exacerbation (principal); J96.21 Acute and chronic respiratory failure with hypoxia; I50.20 Unspecified systolic (congestive) heart failure; I11.0 Hypertensive heart disease with heart failure; I48.0 Paroxysmal atrial fibrillation; I71.40 Abdominal aortic aneurysm, without rupture, unspecified; I73.9 Peripheral vascular disease, unspecified; I25.10 Atherosclerotic heart disease of native coronary artery without angina pectoris; F41.9 Anxiety disorder, unspecified; F17.210 Nicotine dependence, cigarettes, uncomplicated; K21.9 Gastro-esophageal reflux disease without esophagitis; N40.0 Benign prostatic hyperplasia without lower urinary tract symptoms; R94.31 Abnormal electrocardiogram [ECG] [EKG]; Z95.828 Presence of other vascular implants and grafts; Z20.822 Contact with and (suspected) exposure to COVID-19; Z79.82 Long term (current) use of aspirin
CPT/HCPCS: 36415; 36600; 71045; 80048; 80053; 82375; 82805; 83050; 83735; 83880; 84484; 85025; 85027; 85610; 85730; 87070; 87205; 87636; 93005; 93306; 94618; 94640; 94667; 94668; 96372; 96374; 96376; 99285; A9270; G0378; J1650; J2920; J2930; J7512

== ENCOUNTER 2023-06-21 09:03 | Outpatient (CLI) | payer MEDICARE, SELFPAY ==
--- NOTE | ~2023-06-21 | CT_ITS ---
CT Scan of the Chest without Contrast: Clinical Indication: Lung cancer screening, personal history of nicotine dependence Technique: Contiguous sections were acquired throughout the chest without intravenous contrast. Dose reduction technique was used on this scan by utilizing automated exposure control and iterative recon struction technique. The dose-length product (DLP) was 81.87 mGy-cm. COMPARISON: 06/19/2022, 05/28/2020 Findings: There is no evidence of any significant mediastinal, hilar or axillary lymphadenopathy. There atheros clerotic calcifications of the aorta and coronary arteries. There is no evidence of pleural or pericardial effusion. Moderate emphysema and right apical scarring present. Stable subcentimeter nodules along the right mi nor fissure and at the right middle lobe. Images through the upper abdomen reveal no abnormalities. Chronic compression deformity of T6 noted. Impression: Lung RADS 2: Benign appearance. 12 month follow-up screening CT advised. Reviewed, dictated and finalized at [facility]. 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 12 month follow-up screening CT advised.
== END 2023-06-21 09:04 | disposition home or self-care (01) ==
PROVIDERS: PCP Family Medicine; Visit Provider Physician Assistant
DX: Z12.2 Encounter for screening for malignant neoplasm of respiratory organs (principal); Z87.891 Personal history of nicotine dependence
CPT/HCPCS: 71271

== ENCOUNTER 2024-08-03 10:23 | Outpatient (CLI) | payer MEDICARE, SELFPAY ==
--- NOTE | 2024-08-03 | ECHO_ITS ---
Patient Info Name: Logan Infante Age: 73 years : 1950 Gender: Male Ht: 71 in Wt: 168 lbs BSA: 1.96 m2 HR: 88 bpm BP: 116 / 85 mmHg Technical Quality: Fair Exam Date: 08/03/2024 12:08 PM Exam Location: Echo Lab Patient Status: Outpatient Admit Date: 08/03/2024 Staff Ordering Physician: VivekJocelyn MD Chief Medical Physicist: Piedad Azar RDCS Attending Provider: VeronicaJocelyn MD Exam Type: CA echo doppler color flow Study Info Indications - DYSPNEA - CAD Complete two-dimensional, color flow and Doppler transthoracic echocardiogram is performed. Summary 1. Complete two-dimensional, color flow and Doppler transthoracic echocardiogram is performed. 2. Patient appears to be in atrial fibrillation during the study. 3. The left ventricle is normal in size and systolic function. The left ventricular ejection fraction is visually estimated to be 50-55%. 4. The left atrium is moderately enlarged. 5. The right atrium is normal size. 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 6. The aortic valve is not well visualize but appears to be opening well on the parasternal long-axis views. Left Ventricle The left ventricle is normal in size and systolic function. The left ventricular ejection fraction is visually estimated to be 50-55%. Left Atria The left atrium is moderately enlarged. Right Atria The right atrium is normal size. 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 Atrial Septum The atrial septum visually appears intact. Aortic Valve The aortic valve is not well visualize but appears to be opening well on the parasternal long-axis views. Pulmonic Valve The pulmonic valve is not well visualized. There is no color Doppler evidence of pulmonic valve regurgitation. Mitral Valve The mitral valve is normal. There is no mitral regurgitation. Tricuspid Valve The tricuspid valve is grossly normal. There is trace tricuspid regurgitation. Pericardium/Pleural Pericardium is normal in appearance with no evidence for significant pericardial effusion. Inferior Vena Cava Normal inferior vena cava with >50% collapse upon inspiration consistent with normal right atrial pressure, 3 mmHg. Normal inferior vena cava with >50% collapse upon inspiration consistent with normal right atrial pressure, 3 mmHg. Aorta The aortic root at the level of the sinus of Valsalva measures 3.1 cm in diameter. Left Ventricular Outflow Tract Name Value Normal LVOT 2D LVOT Diameter 2.1 cm Pulmonic Valve Name Value Normal RVOT Doppler RVOT Peak Gradient 2 mmHg PV Doppler PV Peak Gradient 4 mmHg Mitral Valve Name Value Normal MV Doppler MV Decel [place] 522 cm/s2 MV PHT 49 ms MV Area (PHT) 4.5 cm2 4.0-5.0 MV Diastolic Function MV E Peak Velocity 88 cm/s MV A Peak Velocity 0 cm/s MV E/A 428.4 MV Decel Time 168 ms MV Annular TDI MV E/e' (Septal) 9.8 <=8.0 MV E/e' (Lateral) 6.4 <=8.0 MV E/e' (Average) 8.1 Tricuspid Valve Name Value Normal TV Regurgitation Doppler TR Peak Velocity 288 cm/s TR Peak Gradient 33 mmHg Estimated PAP/RSVP RA Pressure 3 mmHg <=5 PA Systolic Pressure 36 mmHg <36 RV Systolic Pressure 36 mmHg <36 Aorta Name Value Normal Ascending Aorta Ao Root Diameter (MM) 3.6 cm Ao Root Diam Index (MM) 1.8 cm/m2 Aortic Valve Name Value Normal AV Regurgitation 2D LVOT Area 3.3 cm2 Ventricles Name Value Normal LV Dimensions 2D/MM IVS Diastolic Thickness (2D) 1.4 cm 0.6-1.0 LVID Diastole (2D) 4.5 cm 4.2-5.8 LVIW Diastolic Thickness (2D) 1.0 cm 0.6-1.0 LVID Systole (2D) 3.1 cm 2.5-4.0 LVOT Diameter 2.1 cm LV Mass (2D Cubed) 198.02 g 88.00-224.00 LV Mass Index (2D Cubed) 101 g/m2 49-115 Relative Wall Thickness (2D) 0.43 LV Fractional Shortening/Ejection Fraction 2D/MM LV Fractional Shortening (2D) 30 % 25-43 LV EF (2D Teicholz) 58 % 52-72 LV Diastolic Volume (4C MOD) 63 ml LV EF (4C MOD) 48 % LV Diastolic Volume (2C MOD) 44 ml LV EF (2C MOD) 62 % LV Diastolic Volume (BP MOD) 56 ml 62-150 LV Diastolic Volume Index (BP MOD) 28 ml/m2 34-74 LV Systolic Volume (BP MOD) 24 ml 21-61 LV Systolic Volume Index (BP MOD) 12 ml/m2 11-31 LV EF (BP MOD) 56 % 52-72 LV Diastolic Length (4C) 7.8 cm LV Systolic Length (4C) 6.5 cm LV Stroke Volume (4C MOD) 30 ml Atria Name Value Normal LA Dimensions LA Dimension (MM) 3.0 cm 3.0-4.1 LA Volume (4C A-L) 72 ml LA Volume (BP A-L) 87 ml RA Dimensions RA Area (4C) 17.1 cm2 <=18.0 Report Signatures
--- NOTE | ~2024-08-03 | US_ITS ---
EXAMINATION: US carotid duplex BI DATE: 08/03/2024 13:50 INDICATION: Presurgical. Coronary artery disease. TECHNIQUE: Grayscale, color Doppler, and pulsed Doppler images of the cervical carotid arteries were obtained. The degree of vessel stenosis is placed in one of the following categories: normal, <50%, 5 0-69%, >=70% but less than near-occlusion, near-occlusion, or total occlusion. Note that percent sten osis relative to normal distal artery lumen diameter is indirectly measured from velocity measurement s as described by Baljinder, et al. Radiology 2003; 229:340-346. Notes: Normal: Peak systolic velocity <125 centimeters/sec and no plaque <50%. Peak systolic velocity <125 ( EDV <40; ICA/CCA PSV ratio <2.0; used these factors only a tandem lesions or low cardiac output or co ntralateral disease) 50-69 %: PSV 125-230 (EDV 40-100; ratio 2-4) >= 70% but less than near occlusion: PSV greater than 230 (EDV > 100; ratio> 4.0) Near Occlusion: PSV that is variable; markedly narrowed lumen Occlusion: Absent flow on color/spectral Doppler and no lumen on guadalupe scale. COMPARISON: None. FINDINGS: RIGHT: The right common carotid artery (CCA) peak systolic velocity (PSV) is 43 cm/s. The right internal car otid artery (ICA) PSV is 35 cm/s. The right ICA end-diastolic velocity (EDV) is 10 cm/s. The right IC A/CCA PSV ratio is 0.8. The external carotid artery (ECA) PSV is 55 cm/s. There is antegrade flow in the right vertebral artery. LEFT: The left CCA PSV is 37 cm/s. The left ICA PSV is 54 cm/s. The left ICA EDV is 22 cm/s. The left ICA/C CA PSV ratio is 1.5. The ECA PSV is 80 cm/s. There is antegrade flow in the left vertebral artery. IMPRESSION: 1. Less than 50% stenosis in the right internal carotid artery by sonographic criteria. 2. Less than 50% stenosis in the left internal carotid artery by sonographic criteria. Reviewed, dictated and finalized at location B. [facility] IMPRESSION: 1. Less than 50% stenosis in the right internal carotid artery by sonographic c seng. 2. Less than 50% stenosis in the left internal carotid artery by sonographic cr sanjay.
--- NOTE | 2024-08-03 12:31 | WPDPFTINT ---
PFT Procedure Performed PFT Procedure Performed Plethysmography (Lung Vol) Diffusing Cap (DLCO) Flow Vol Loop Spirometry w/o Bronchodil PFT Interpretation This is a pulmonary function test with spirometry, plethysmography and diffusing capacity. The test was performed and results interpreted in accordance with the 2019 and 2005 ATS/ERS Task Force guidelines respectively using the Global Lung Function Initiative-2012 reference equations. Patient demonstrated good effort and cooperation. Reproducibility criteria were met. The quality of the spirometry maneuver was Grade A. Findings: Spirometry: There is decreased maximal expiratory airflow at all lung volumes with concave expiratory flow tracing. The contour the inspiratory flow tracing is normal. The FVC is 2.12 L, 50% predicted. The FEV1 is 0.57 L, 18% predicted. The FEV1: FVC ratio is 27%. Plethysmography: The total lung capacity is 10.41 L, 144% predicted. The functional residual capacity is 8.05 L, 208% predicted. The residual volume is 6.67 L, 259% predicted. The residual volume: Total lung capacity ratio 64%. Diffusing capacity: Diffusing capacity unadjusted for hemoglobin and carboxyhemoglobin is 10.0, 39% predicted. The diffusing capacity adjusted for alveolar volume is 2.75, 73% predicted. In comparison to previous pulmonary function testing on 04/13/2019 the FVC has decreased from 3.49 L to 2.12 L. the FEV1 is decreased from 1.13 L to 0.57 L. The total lung capacity has increased from 7.73 L to 10.41 L. The functional residual capacity is increased from 5.92 L to 8.05 L. The residual volume is increased from 4.25 L to 6.67 L. The diffusing capacity unadjusted for hemoglobin and carboxyhemoglobin is decreased from 13.4 to 10.0. The diffusing capacity adjusted for alveolar volume is unchanged from 2.92 to 2.75. Impression: There is a very severe obstructive abnormality. The increase in residual volume to total lung volume ratio is consistent with hyperinflation from an obstructive abnormality. The diffusing capacity unadjusted for hemoglobin and carboxyhemoglobin is moderately decreased and normalizes when adjusted for alveolar volume. In comparison to previous pulmonary function testing on 04/13/2019 there has been a greater than anticipated time dependent decrease in the FVC, FEV1 and diffusing capacity unadjusted for hemoglobin. There has been a greater than anticipated time dependent increase in the total lung capacity, functional residual capacity and residual volume with no change in the diffusing capacity adjusted for alveolar volume. Clinical correlation is recommended.
== END 2024-08-03 10:24 | disposition home or self-care (01) ==
PROVIDERS: PCP Family Medicine; Visit Provider Thoracic Surgery (Cardiothoracic Vascular Surgery)
DX: I25.118 Atherosclerotic heart disease of native coronary artery with other forms of angina pectoris (principal); R06.00 Dyspnea, unspecified; R09.89 Other specified symptoms and signs involving the circulatory and respiratory systems
CPT/HCPCS: 93306; 93880; 94375; 94726; 94729

== ENCOUNTER 2024-09-29 10:23 | Outpatient (CLI) | payer MEDICARE, SELFPAY ==
--- NOTE | ~2024-09-29 | CT_ITS ---
EXAMINATION: CT diagnostic chest wo con DATE: 09/29/2024 10:58 INDICATION: R91.8 - Other nonspecific abnormal finding of lung field TECHNIQUE: Computed tomography (CT) of the chest was performed without intravenous contrast. Addition al 3D reconstructions utilizing coronal maximum intensity projection (MIP) were performed. Automated exposure control and iterative reconstruction technique were employed. The dose-length product was 19 0.47 mGy-cm. COMPARISON: 06/21/2023 FINDINGS: Moderate emphysema some peripheral pleural parenchymal scarring at the upper lungs. A couple unchange d 4 mm and 3 mm nodules at the right minor fissure and right middle lobe respectively consistent with old granulomatous disease. No pulmonary edema, pleural effusion or pneumothorax. Heart size is gadiel l. Atherosclerotic coronary artery calcifications. Aortic valve calcification. Thoracic aorta is norm al in caliber. Enlargement of the central pulmonary arteries consistent with pulmonary arterial hyper tension. No pathologically enlarged thoracic lymphadenopathy. Bilateral renal cysts, the largest 11 c m exophytic cyst arising from the upper pole the right kidney. There are also few bilateral subcentim eter hyperdense proteinaceous/hemorrhagic cyst. Incompletely visualized infrarenal abdominal aortic s tent graft. Mild thoracic spondylosis. Chronic compression fractures at T6 and L1. IMPRESSION: 1. Moderate emphysema with enlargement of the central pulmonary arteries consistent with pulmonary ar terial hypertension. No acute cardiopulmonary disease. Reviewed, dictated and finalized at location A. NGE MAKER IMPRESSION: 1. Moderate emphysema with enlargement of the central pulmonary arteries consis tent with pulmonary arterial hypertension. No acute cardiopulmonary disease.
--- OUTSIDE RECORDS SUMMARY | 2024-09-29 10:40 | XMS_ITS | Continuity of Care Document ---
Author Organization [facility] Address [address] [place] [address] [address] [place] [address] Phone Care Team Providers Care Electronics Specialist Name Role Phone Kyra Maynard Unavailable Unavailable Advance Directives Directive Yes / No Effective Date File Name No Information Encounters Encounter Description Practice Location Reason(s) For Visit Diagnoses Date Provider Providers Copied on Encounter [facility], [address], [place], [place], [id number], [place] tel:[phone] [facility] No Information [address] Aleyda Rae. [address] [facility] , [address], [place], [address], [place]. tel:[phone] Family History Family Member Type Diagnosis Age At Onset No Information Payers Payer name Insurance type Covered green party ID Authoriza tion(s) No Information Social History Type Description Quantity Date Captured Comments Sex Male Smoking Status No Information Chief Complaint And Reason For Visit No Information Reason For Referral Reason For Referral No Information History Of Present Illness Encounter Date Complaint History Of Prese nt Illness No Information Functional Status Date Functional Assessmen t No Information Instructions Date Instruction Additional Infor mation No Information Assessments Type Assessment Date No Information Patient Care Teams Name Effective Dates (start - stop) Status Members No Information
--- OUTSIDE RECORDS SUMMARY | 2024-09-29 10:40 | XMS_ITS | Referral Summary ---
Author Organization [facility] Address [address] [place] [address] Care Team Providers Care Torpedo Shooter Name Role Phone Erma Avila MD Primary Care Provider [phone] Encounters Date Type Department Care Team Description 09/04/2024 Telephone [facility] Cardiology [address] [place] [address] Rajesh Mack MD 08/01/2024 11:59 PM OCCUPATIONAL PHYSICIAN Anesthesia Event [facility] Operating Room [address] [place] [address] Kaylah Tavarez NP 08/02/2024 11:09 AM OCCUPATIONAL PHYSICIAN - 08/02/2024 11:59 PM OCCUPATIONAL PHYSICIAN Hospital Encounter [facility] Diagnostic Imaging [address] [place] [address] Discharge Disposition: Discharge to home or self care 08/02/2024 10:45 AM OCCUPATIONAL PHYSICIAN Pre-Admission Testing [facility] Pre Anesthesia Testing [address] [place] [address] 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, unspecified vessel or lesion type (HCC); Shortness of breath 07/25/2024 Orders Only [facility] Surgery [address] [place] [address] Jocelyn Doyle MD 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, unspecified vessel or lesion type (HCC) (Primary Dx); Dyspnea, unspecified type; Other specified symptoms and signs involving the circulatory and respiratory systems 07/24/2024 8:30 AM OCCUPATIONAL PHYSICIAN - 07/24/2024 10:00 AM OCCUPATIONAL PHYSICIAN Surgery [facility] Cardiac Catheterization Lab [address] [place] [address] Rajesh Mack MD LEFT HEART CATHETERIZATION WITH CORONARY ANGIOGRAPHY AND WITH OR WITHOUT LEFT VENTRICULOGRAM [id number] 07/24/2024 6:17 AM OCCUPATIONAL PHYSICIAN - 07/24/2024 2:51 PM [facility] Hospital Encounter [facility] Cardiac Catheterization Lab [address] [place] [address] Rajesh Mack MD Coronary artery disease involving chickaloon coronary artery of chickaloon heart with other form of angina pectoris (HCC); Dyspnea, unspecified type Discharge Disposition: Discharge to home or self care from Last 3 Months Allergies No known active allergies Medications ALPRAZolam (XANAX) 0.5 mg tablet Take 1 tablet (0.5 mg total) by mouth 2 (two) times a day Active aspirin 81 mg tablet Take 1 tablet (81 mg total) by mouth every morning Active atorvastatin (LIPITOR) 20 mg tablet Take 1 tablet (20 mg total) by mouth nightly Active folic acid (FOLVITE) 1 mg tablet Take 1 tablet (1 mg total) by mouth every morning Active vitamin B comp with C no.4 150 mg tablet Take 1 tablet by mouth every other day Active albuterol HFA (PROVENTIL HFA,VENTOLIN HFA,PROAIR HFA) 90 mcg/actuation inhaler Inhale 2 puffs every 4 (four) hours as needed 2 Active albuterol 2.5 mg /3 mL (0.083 %) nebulizer solution Take 3 mL (2.5 mg total) by nebulization every 6 (six) hours as needed 2 Active cholecalciferol (Vitamin D3) 1,000 unit capsule Take 1 capsule (1,000 Units total) by mouth every morning Active pantoprazole DR (PROTONIX) 20 mg EC tablet TAKE 1 TABLET EVERY DAY 90 tablet 3 4 Active Additional Information Patient taking differently:20 mg oralNightly, Reported on 08/02/2024 lisinopriL (PRINIVIL,ZESTRI L) 10 mg tablet Take 1 tablet (10 mg total) by mouth every morning 4 Active furosemide (LASIX) 20 mg tablet Take 1 tablet (20 mg total) by mouth daily as needed (leg swelling) 30 tablet 11 4 Active Additional Information Patient taking differently:20 mg oralEvery morning, Reported on 08/02/2024 metoprolol XL (TOPROL-XL) 25 mg extended release tablet TAKE 1 TABLET EVERY DAY 90 tablet 3 4 Active Additional Information Patient taking differently:25 mg oralEvery morning, Reported on 08/02/2024 apixaban (ELIQUIS) 5 mg tabletIndication s:Paroxysmal atrial fibrillation (CMS/HCC) (HCC) Take 1 tablet (5 mg total) by mouth 2 (two) times a day 180 tablet 3 4 Active ascorbic acid (VITAMIN C) 1,000 mg tablet Take 1 tablet (1,000 mg total) by mouth every morning Active Active Problems Problem Noted Date Diagnosed Date Coronary artery disease 06/19/2024 Dyspnea 06/19/2024 Ruptured infrarenal abdominal aortic aneurysm (A AA) 05/28/2024 Encntr for surgical aftcr following surgery on t he circ sys 02/09/2018 Social History Tobacco Use Types Packs/Day Years Used Date Smoking Tobacco: Some Days Cigarettes 0.5 58 Started: [birth year]/09/1959; Last attempted to quit: 02/09/2017 Smokeless Tobacco: Never Tobacco Cessation:Ready to Q uit: Not Asked; Counseling Given: Not Answered Comments:Smokes less than 1/2 ppd. Instructed not to smoke for 24 hrs prior to surgery. Alcohol Use Standard Drinks/Week Comments No 0 (1 standard drink = 0.6 oz pur e alcohol) AUDIT-C Answer Date Recorded Q1: How often do you have a drink containing alcohol? Never 08/02/2024 Q2: How many drinks containi ng alcohol do you have on a typical day when you are drinking? Patient does not drink Q3: How often do you have si x or more drinks on one occasion? Never 08/02/2024 Personal Safety Answer Date Recorded Have you ever been in or are you currently in a harmful physical or emotional relationship or is someone making you feel afraid or unsafe? Denies 07/24/2024 Sex and Gender Information Value Date Recorded Sex Assigned at Not on file Legal Sex Male 3:45 AM OCCUPATIONAL PHYSICIAN Gender Identity Not on file Sexual Orientation Not on file Last Filed Vital Signs Vital Sign Reading Time Taken Comments Blood Pressure 131/73 08/02/2024 11:12 AM OCCUPATIONAL PHYSICIAN Pulse 80 08/02/2024 11:12 AM OCCUPATIONAL PHYSICIAN Temperature 36.4 C (97.5 F) 08/02/2024 11:12 AM OCCUPATIONAL PHYSICIAN Respiratory Rate 18 07/24/2024 1:20 PM OCCUPATIONAL PHYSICIAN Oxygen Saturation 89% 08/02/2024 11:12 AM OCCUPATIONAL PHYSICIAN Inhaled Oxygen Concentration - - Weight 75.8 kg (167 lb) 07/24/2024 6:53 AM OCCUPATIONAL PHYSICIAN Height 180.3 cm (5' 11 ) 07/24/2024 6:53 AM OCCUPATIONAL PHYSICIAN Body Mass Index 23.29 07/24/2024 6:53 AM OCCUPATIONAL PHYSICIAN Plan of Treatment Not on file Medical Devices Implanted Type Area Seating Captain Device Identifier Shelf Expiration Date Model / Serial / Lot Stent Stent Heart Procedures Procedure Name Priority Date/Time Associated Diagnosis Comments EGFR Routine 08/02/2024 12:11 PM OCCUPATIONAL PHYSICIAN 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, unspecified vessel or lesion type (HCC) BASIC METABOLIC PANEL Routine 08/02/2024 12:11 PM OCCUPATIONAL PHYSICIAN 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, unspecified vessel or lesion type (HCC) PROTIME-INR Routine 08/02/2024 12:11 PM OCCUPATIONAL PHYSICIAN 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, unspecified vessel or lesion type (HCC) APTT Routine 08/02/2024 12:11 PM OCCUPATIONAL PHYSICIAN 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, unspecified vessel or lesion type (HCC) Shortness of breath CBC WITHOUT DIFFERENTIAL Routine 08/02/2024 12:11 PM OCCUPATIONAL PHYSICIAN 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, unspecified vessel or lesion type (HCC) URINALYSIS, MICROSCOPIC ONLY Routine 08/02/2024 12:07 PM OCCUPATIONAL PHYSICIAN 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, unspecified vessel or lesion type (HCC) TYPE AND SCREEN Routine 08/02/2024 12:07 PM OCCUPATIONAL PHYSICIAN 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, unspecified vessel or lesion type (HCC) URINALYSIS AND REFLEX TO MICROSCOPIC AND CULTURE Routine 08/02/2024 12:07 PM OCCUPATIONAL PHYSICIAN 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, unspecified vessel or lesion type (HCC) XR CHEST PA LATERAL 2 VIEWS Schedule Routine, Read Routine (OP Routine) 08/02/2024 11:46 AM OCCUPATIONAL PHYSICIAN 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, unspecified vessel or lesion type (HCC) ECG 12-LEAD Routine 08/02/2024 11:32 AM OCCUPATIONAL PHYSICIAN 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, unspecified vessel or lesion type (HCC) VASCULAR ACCESS US GUIDANCE Routine 07/24/2024 10:51 AM OCCUPATIONAL PHYSICIAN Coronary artery disease involving chickaloon coronary artery of chickaloon heart with other form of angina pectoris (HCC) Dyspnea, unspecified type LEFT HEART CATHETERIZATION WITH CORONARY ANGIOGRAPHY AND WITH AND WITHOUT LEFT VENTRICULOGRAM Routine 07/24/2024 10:51 AM OCCUPATIONAL PHYSICIAN Coronary artery disease involving chickaloon coronary artery of chickaloon heart with other form of angina pectoris (HCC) Dyspnea, unspecified type MODERATE SEDATION FIRST 15MIN 5+ YEAR 13175 07/24/2024 9:49 AM OCCUPATIONAL PHYSICIAN Coronary artery disease involving chickaloon coronary artery of chickaloon heart with other form of angina pectoris (HCC) Dyspnea, unspecified type CTA CHEST ABDOMEN PELVIS Schedule Routine, Read Routine (OP Routine) 02/15/2024 12:23 PM CDT Ruptured infrarenal abdominal aortic aneurysm (AAA) (HCC) from Last 3 Months or Most Recently Relevant to Health Maintenance Results * eGFR (08/02/2024 12:11 PM OCCUPATIONAL PHYSICIAN) eGFR 85 >=60 mL/min/1. 73 m2 Comment: Interpretive Data Reference Interval Normal >/= 90 mL/min/1.73m2 Mildly decreased* 60 - 89 mL/min/1.73m2 Mildly to moderately decreased 45 - 59 mL/min/1.73m2 Moderately to severely decreased 30 - 44 mL/min/1.73m2 Severely decreased 15 - 29 mL/min/1.73m2 Kidney Failure < 15 mL/min/1.73m2 *Relative to young adult level Estimated glomerular filtration rate is determined by the 2020 CKD-EPI equation recommended by the National Kidney Foundation (A Unifying Approach to GFR Estimation: Recommendations of the NKF-ASK Task Force on Reassessing the Inclusion of Race in Diagnosing Kidney Disease, JASN 2020). The CKD-EPI equation should not be used for patients with unstable renal function and has not been validated in children and those over 70. Current interpretive data was last reviewed 2021. Blood 08/02/2024 12:1 1 PM OCCUPATIONAL PHYSICIAN 08/02/2024 12:11 PM OCCUPATIONAL PHYSICIAN Jocelyn Doyle MD LAB BLOOD ORDERABLES Final Res ult Performing Organization Address [facility] Co de Phone Number CHIKIS SCHAEFER [id number] [facility] [place], [place] [id number] * (ABNORMAL) aPTT (08/02/2024 12:11 PM OCCUPATIONAL PHYSICIAN) aPTT 39(H) 28 - 38 sec Comment: Interpretive Data Heparin therapeutic range: 66.0 - 100.0 seconds. Range based on correlation with therapeutic heparin activity range of 0.3 - 0.7 Units/mL. Current interpretive data was last revised on 2023. Blood 08/02/2024 12:1 1 PM OCCUPATIONAL PHYSICIAN 08/02/2024 12:11 PM OCCUPATIONAL PHYSICIAN Jocelyn Doyle MD LAB BLOOD ORDERABLES Final Res ult CHIKIS SCHAEFER [id number] [facility] [place], [place] [id number] * (ABNORMAL) Protime-INR (08/02/2024 12:11 PM OCCUPATIONAL PHYSICIAN) PT 14.8(H) 9.7 - 13.0 sec INR 1.36(H) 0.90 - 1.20 CHIKIS SCHAEFER Comment: Interpretive data Oral anticoagulant therapeutic ranges: Venous thromboembolism prophylaxis or treatment: 2.0-3.0 CARDIOLOGY Standard range: 2.0-3.0 High-intensity range: 2.5-3.5 Refer to indication-specific guidelines for appropriate target ranges for prosthetic heart valve replacement. Current interpretive data was last revised on 2019. Blood 08/02/2024 12:1 1 PM OCCUPATIONAL PHYSICIAN 08/02/2024 12:11 PM OCCUPATIONAL PHYSICIAN Jocelyn Doyle MD LAB BLOOD ORDERABLES Final Res ult Performing Organization Address [facility]/ZIP Co de Phone Number CHIKIS SCHAEFER [id number] [address] [place] [address] * (ABNORMAL) CBC without differential (08/02/2024 12:11 PM OCCUPATIONAL PHYSICIAN) WBC 9.4 3.8 - 9.9 K/cumm Hgb 15.2 13.0 - 17.5 g/dL [facility] Hct 44.7 38.9 - 50.3 % [facility] Plt 308 150 - 400 K/cumm [facility] MPV 9.1 9.1 - 12.3 fL [facility] RBC 4.52 4.30 - 5.80 M/cumm [facility] MCV 98.9(H) 81.3 - 96.4 fL [facility] MCH 33.6(H) 27.1 - 33.3 pg [facility] MCHC 34.0 32.3 - 35.7 g/dL [facility] RDW CV 13.2 11.1 - 14.9 % [facility] RDW SD 48.4(H) 35.7 - 48.1 fL [facility] NRBC abs 0.00 0.00 - 0.01 K/cumm [facility] Blood 08/02/2024 12:1 1 PM OCCUPATIONAL PHYSICIAN 08/02/2024 12:11 PM OCCUPATIONAL PHYSICIAN Jocelyn Doyle MD LAB BLOOD ORDERABLES Final Res ult CHIKIS SCHAEFER [id number] [address] [facility] [place] [address] * (ABNORMAL) Basic metabolic panel (08/02/2024 12:11 PM OCCUPATIONAL PHYSICIAN) Sodium 131(L) 135 - 145 mmol/L Potassium, pl 4.4 3.3 - 4.9 mmol/L [facility] Chloride 91(L) 97 - 110 mmol/L [facility] CO2 31 22 - 32 mmol/L [facility] Anion gap 9 2 - 15 mmol/L [facility] BUN 13 6 - 25 mg/dL [facility] Creatinine 0.94 0.80 - 1.30 mg/dL [facility] Glucose 113 70 - 199 mg/dL [facility] Comment: Interpretive Data Fasting glucose >/= 126 mg/dl is diagnostic for diabetes. Fasting is defined as no caloric intake for at least 8 hours. Fasting glucose between 100 mg/dl to 125 mg/dl is diagnostic of prediabetes. In a patient with classic symptoms of hyperglycemia or hyperglycemic crisis, a random glucose >/= 200 mg/dl is diagnostic for diabetes. In the absence of unequivocal hyperglycemia, results should be confirmed by repeat testing. The classification and Diagnosis of Diabetes Diabetes Care 2021; 46: S19-S40. Current interpretive data was last revised 2022. Calcium 9.6 8.5 - 10.3 mg/dL [facility] Blood 08/02/2024 12:1 1 PM OCCUPATIONAL PHYSICIAN 08/02/2024 12:11 PM OCCUPATIONAL PHYSICIAN Jocelyn Doyle MD LAB BLOOD ORDERABLES Final Res ult CHIKIS [address] [address] [facility] [place] [address] * (ABNORMAL) Urinalysis reflex to microscopic and culture Urine, clean voided (08/02/2024 12:07 PM OCCUPATIONAL PHYSICIAN) Color, ur Straw Yellow Clarity, ur Clear Clear [facility] Specific gravity, ur 1.006 1.003 - 1.030 [facility] pH, urine 7.0 [facility] Comment: Interpretive Data U rine pH is affected by diet, medications, systemic acid-base disturbances, and renal tubular function. pH may affect urinary stone formation. For example, urine pH below 6.0 may help reduce the tendency for calcium phosphate stones and pH greater than 6.0 may reduce the tendency for uric acid stone formation. Source: [facility] Current Interpretive Data was last revised on 2017 Protein, ur ql Negative Negative [facility] Glucose, ur ql Negative Negative [facility] Ketones, ur Negative Negative [facility] Bilirubin, ur Negative Negative [facility] Blood, ur Trace(A) Negative [facility] Urobilinogen, ur <2.0 <2.0 mg/dL [facility] Nitrite, ur Negative Negative [facility] Leukocyte esterase, ur Negative Negative [facility] UA reflex comment Reflex to microscopic UA will be performed. [facility] Urine, clean voided 08/02/2024 12:07 PM OCCUPATIONAL PHYSICIAN 08/02/2024 12:21 PM OCCUPATIONAL PHYSICIAN Jocelyn Doyle MD LAB MICROBIOLOGY - GENERAL ORD ERABLES Final Result Performing Organization Address [facility] Co de Phone Number CHIKIS SCHAEFER [phone] [facility] [place] [address] * (ABNORMAL) Urinalysis, microscopic only (08/02/2024 12:07 PM OCCUPATIONAL PHYSICIAN) WBC, ur 0-5 0 - 5 /HPF RBC, ur 3-5(A) 0 - 2 /HPF [facility] Mucous, ur Present(A) [facility] Culture Reflex Comment Reflex conditions for urine culture (WBC >10) not met. [facility] Urine, clean voided 08/02/2024 12:07 PM OCCUPATIONAL PHYSICIAN 08/02/2024 12:21 PM OCCUPATIONAL PHYSICIAN Jocelyn Doyle MD LAB URINE ORDERABLES Final Res ult Performing Organization Address [facility]/ZIP Co de Phone Number CHIKIS SCHAEFER [phone] [address] [facility] [place], [place] [id number] * Type and screen (08/02/2024 12:07 PM OCCUPATIONAL PHYSICIAN) ABO Rh A Positive Lisa, indirect Negative [facility] Blood 08/02/2024 12:0 7 PM OCCUPATIONAL PHYSICIAN 08/02/2024 12:12 PM OCCUPATIONAL PHYSICIAN Narrative CHIKIS - 08/02/2024 3:03 PM OCCUPATIONAL PHYSICIAN Has the patient had Daratumumab or Isatuximab in the past 6 months?->Unknown Jocelyn Doyle MD LAB BLOOD BANK TEST ORDERABLES Final Result CHIKIS [address] [facility] [place] [address] * XR Chest PA Lateral 2 View (08/02/2024 11:46 AM OCCUPATIONAL PHYSICIAN) Anatomical Region Laterality Modality Body, Chest N/A Computed Radiogr aphy 08/02/2024 11:5 5 AM OCCUPATIONAL PHYSICIAN Impressions 08/02/2024 11:55 AM OCCUPATIONAL PHYSICIAN No failure. Electronically signed by: Marleny Brown M.D. Narrative 08/02/2024 11:55 AM OCCUPATIONAL PHYSICIAN EXAMINATION: XR CHEST PA LATERAL 2 VIEWS HISTORY: The patient is a 73-year-old male who presents with coronary artery disease. TECHNIQUE: PA and lateral view of the chest. FINDINGS: Lungs clear. Cardiovascular structures unremarkable. Procedure Note Marleny Brown MD - 08/02/2024 EXAMINATION: XR CHEST PA LATERAL 2 VIEWS HISTORY: The patient is a 73-year-old male who presents with coronary artery disease. TECHNIQUE: PA and lateral view of the chest. FINDINGS: Lungs clear. Cardiovascular structures unremarkable. IMPRESSION: No failure. Electronically signed by: Marleny Brown M.D. Jocelyn Doyle MD IMG XR PROCEDURES Final Result * ECG 12 lead (08/02/2024 11:32 AM OCCUPATIONAL PHYSICIAN) 08/02/2024 11:3 2 AM OCCUPATIONAL PHYSICIAN Narrative [facility] - 08/02/2024 2:44 PM OCCUPATIONAL PHYSICIAN Vent Rate: 78 bpm RR Interval: 760 msec SD Interval: 0 msec QRS Duration: 113 msec QT Interval: 370 msec QTC Interval: 404 msec P-R-T Mcdade: 0 - 65 - 53 degrees IMPRESSION: ATRIAL FIBRILLATION PROBABLE INFERIOR MYOCARDIAL INFARCTION , PROBABLY OLD ABNORMAL ECG Electronically Signed By: Dr. Julien Booth [facility] us Jocelyn Doyle MD ECG ORDERABLES Final Result [facility] * LEFT HEART CATHETERIZATION WITH CORONARY ANGIOGRAPHY AND WITH AND WITHOUT LEFT VENTRICULOGRAM, VASCULAR ACCESS US GUIDANCE (07/24/2024 10:51 AM OCCUPATIONAL PHYSICIAN) Anatomical Region Laterality Modality X-Ray Angiograph y Addenda Addendum by Rajesh Mack MD on 07/24/2024 11:10 AM OCCUPATIONAL PHYSICIAN LEFT HEART CATHETERIZATION AND CORONARY ANGIOGRAM REPORT DATE OF PROCEDURE: 07/24/24 INDICATION FOR PROCEDURE: CAD, CHF with reduced ejection fraction BRIEF CLINICAL HISTORY: Logan Diallo is a 73 y.o. male with CAD s/p Status post 3.8 x 18 mm Bx sonic Hepacoat stent mid RCA (on 12/06/2002 in the setting of abnormal MPI); PAF, history of AAA rupture status post EVAR on 01/06/2017, hypertension, COPD/emphysema, tobacco abuse. Patient has CHF with reduced ejection fraction, LVEF 35-40% from 10/05/2022 echo. MPI from 11/09/2022 reportedly showed LVEF 43%; hypokinesis in the basal inferior and mid inferior segments; akinetic mid inferolateral segments; infarction in inferior and marixa-infarct ischemia in the inferolateral segments. Coronary CT angiogram from 06/14/2024 reportedly showed severe atherosclerotic plaque in LAD; 0.7 cm aneurysm from mid LAD; multifocal about 50% stenosis throughout mid-distal LAD; about 50% stenosis mid LCX; proximal-mid RCA chronically occluded with reconstitution distally. Coronary angiogram was recommended. Benefits and risks of the procedure were discussed with the patient in depth, and informed consent was taken prior to the procedure. Risks of the procedure include but are not limited to vascular complications like groin hematoma, retroperitoneal bleed, vessel perforation; periprocedural W[place], cardiac arrhythmias, stroke, contrast induced nephropathy, and . After discussing all the benefits, risks and alternatives, patient was willing to proceed with the procedure. PROCEDURES PERFORMED: Left heart catheterization- selective left and right coronary angiogram, left ventriculogram, LV pressure management and hemodynamic assessment Ultrasound-guided right radial access (CPT 58800) Moderate sedation-CPT code 59884 MODERATE SEDATION: Midazolam 2 mg , Fentanyl 50 mcg, start time 1009 stop time 1051, total direct [id number] monitoring of conscious sedation 42 minutes (CPT 92237) TRAINED OBSERVER: Latanya Bedoya RN was trained observer for moderate sedation. ACCESS SITE: Right radial artery PROCEDURE: After obtaining informed consent, patient was brought to the builder's labourer and prepped and draped in the usual sterile manner. Time-out and immediate reassessment of the patient was performed. After local anesthesia with lidocaine, right radial artery access was taken with micropuncture needle under ultrasound guidance followed by insertion of a 6 Ghanaian sheath. Patient received 0.5 mg of verapamil, 100 mcg of nitroglycerin through arterial sheath; and 5000 units of heparin IV. Selective left and right coronary angiography was performed using 5 F AL1 guide catheter (unable to engage with JL 3.5 diagnostic catheter) and 5F JR4 catheters respectively. Orthogonal views were taken. Next, 5 F pigtail catheter was advanced into the left ventricular cavity over 035 wire, and LV pressure measurement followed by left ventriculogram was performed. The catheter was flushed, and gradient across the aortic valve was measured using pullback technique. Access site hemostasis was achieved with radial band. Patient tolerated procedure well without any immediate procedure related complications. Estimated blood loss was minimal. All specimens removed. The angiographic and other findings are given below. FINDINGS: LEFT MAIN CORONARY: Large caliber vessel, no significant focal stenosis. The vessel trifurcates into LAD, high OM/ramus intermedius and left circumflex branches. LEFT ANTERIOR DESCENDING ARTERY: The LAD is a large caliber vessel with moderate diffuse disease in the proximal segment, and multiple aneurysmal segments with high-grade stenosis in the mid segment. Diagonal branch is not well visualized due to significant overlap of the vessels. LEFT CIRCUMFLEX ARTERY: The left circumflex artery is a large caliber vessel, gives rise to high OM branch which has about 50-70% stenosis at the ostium. OM2 branch is a medium caliber vessel with mild disease in the proximal segment; OM3 branch is a small to medium caliber vessel. Uopf-lo-[id number] collaterals are seen supplying distal RCA RIGHT CORONARY ARTERY: Chronic total occlusion in the mid segment with 100% ISR; slow filling of the RCA through bridging collaterals. Distal vessel supplied by [id number] collaterals. LEFT VENTRICULOGRAM: LV dysfunction with segmental wall motion abnormality; baseline and mid inferior segments are akinetic. LVEF about 40-45%. LVEDP elevated at 26 mmHg. HEMODYNAMIC ASSESSMENT: Opening pressure 108/64 mmHg, closing pressure 130/58 mmHg, LVEDP 26 mmHg. No significant gradient across aortic valve on the pull back of pigtail catheter. CONCLUSIONS: CAD- A) multiple aneurysmal segments with high-grade stenosis in mid LAD; B) 50-70% stenosis at the ostium of ramus intermedius/high OM branch; C) chronic total occlusion mid RCA/100% ISR (filling of RCA through bridging, and [id number]-[id number] collaterals) LV dysfunction with segmental wall motion abnormality with akinetic mid-basal inferior segments; LVEF about 40-45%; LVEDP elevated at 26 mmHg. PLAN/RECOMMENDATIONS: Given complexity of the LAD disease with multiple aneurysmal segments and high-grade stenosis, and INTERNIST MEDICAL DOCTOR MD/100% ISR of RCA, patient will be referred to surgery for surgical revascularization. Potential targets for CABG include distal LAD; high OM/ramus intermedius, and distal RCA. Optimal medical treatment for CAD including antiplatelet, statin; and standard GDMT for LV dysfunction. Smoking cessation. Voice recognition software was used to complete this document, therefore, power plant supervisor variances may occur. Rajesh Mack MD, [facility] 07/24/24 us Rajesh Mack MD CV CARDIAC CATH PROCEDURES Edite d Result - Final * CTA Chest Abdomen Pelvis (02/15/2024 12:23 PM CDT) Anatomical Region Laterality Modality Body N/A Computed Tomogra phy 02/15/2024 3:00 PM CDT Impressions 02/15/2024 4:00 PM CDT 1. 61 mm x 67 mm infrarenal abdominal aortic aneurysm with stent graft in place, slightly increased since the prior exam dated 02/21/2020 when it measured 58 x 68 mm. 2. AAA volume: 211 cc. 3. No evidence of stent migration. 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 4. 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 Consider cardiology consultation. 5. Several subcentimeter pulmonary nodules. Recommend follow-up chest CT in one year. 6. Age indeterminate deformities in the T6 and L1 vertebral bodies. The L1 compression deformity is new since 2020. Recommend correlation with midline back pain. Dictated by: Ivan Estrada MD, PHD The radiology attending physician has personally reviewed this study, and had reviewed and/or edited this written report and agrees with it. Electronically signed by: Jack Gonzalez M.D. Narrative 02/15/2024 4:00 PM CDT EXAMINATION: CT ANGIOGRAPHY OF THE CHEST, ABDOMEN AND PELVIS WITH AND WITHOUT CONTRAST HISTORY: History of abdominal aortic aneurysm rupture status post endovascular repair 01/06/2017. TECHNIQUE: CT angiography of the chest, abdomen and pelvis was performed prior to and following the uneventful intravenous administration of 70 ml Optiray-350 using the post-endoluminal stent graft protocol. Vascular 3D images were generated on a dedicated workstation and also reviewed. COMPARISON: Comparison is made with prior CT dated 02/21/2020 FINDINGS: VASCULAR FINDINGS: Thoracic: Thoracic aorta is normal in caliber. Abdominal: There is an infrarenal abdominal aortic aneurysm with an [id number] stent graft in place. The proximal attachment site is just distal to the superior mesenteric artery trunk, and the distal attachment sites are in the common iliac arteries bilaterally. There has been no migration of the graft since the last exam. There is blooming on delayed phase images (series 15 image 54) which may represent a small type II endoleak, possibly from a lumbar artery. Celiac and superior mesenteric arteries are patent. Bilateral renal arteries patent. Inferior mesenteric artery occluded occluded. 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 No visceral stents are present. AAA volume (lowest renal artery to aortic bifurcation): 211 cc. This was not measured on the prior exam in 2019. The maximum diameter of the aneurysm is 61 mm AP x 67 mm [id number]. This is slightly increased since the prior exam when it measured 58 x 68 mm. The maximum diameter of the graft is 28 mm AP x 24 mm [id number]. This is stable since the prior exam. NON-VASCULAR FINDINGS: Chest: Upper lobe predominant emphysema. Biapical pleural scaring. Several sub 6mm pulmonary nodules measuring up to 4mm in the right upper lobe (series 12 image 84), and recommend attention on followup. No pleural effusion or pneumothorax. Small amount of mucus in the distal trachea. Subcentimeter right thyroid lobe nodule. No supraclavicular, axillary, or mediastinal adenopathy. Heart size is normal. Coronary artery calcifications No pericardial main pulmonary artery is normal in caliber. The esophagus is patulous along its length. Abdomen/Pelvis: Stomach and duodenal sweep are normal. Simple hepatic cyst in hepatic segment 6. Flash filling hemangioma near the hepatic dome in segment 8. Gallbladder is normal. No intrahepatic or extrahepatic biliary ductal dilatation. Pancreas normal. Spleen normal. Adrenal glands normal. A 1.4 cm nodule arising from the left kidney demonstrates higher than simple fluid attenuation but does not enhance in keeping with hemorrhagic/proteinaceous cyst. Several additional renal lesions are too small to characterize, several represent simple cysts. No hydronephrosis. Urinary bladder diverticulum. There is colonic diverticulosis without definite evidence of acute diverticulitis. Appendix is normal. Small bowel is normal without signs of bowel obstruction. No retroperitoneal or pelvic lymphadenopathy. Small fat-containing umbilical hernia. No suspicious osseous lesions. Chronic-appearing wedge deformity of T6. New compression deformity in L1 vertebral body since prior study in 2019. Procedure Note Jack Gonzalez MD - 02/15/2024 EXAMINATION: CT ANGIOGRAPHY OF THE CHEST, ABDOMEN AND PELVIS WITH AND WITHOUT CONTRAST HISTORY: History of abdominal aortic aneurysm rupture status post endovascular repair 01/06/2017. TECHNIQUE: CT angiography of the chest, abdomen and pelvis was performed prior to and following the uneventful intravenous administration of 70 ml Optiray-350 using the post-endoluminal stent graft protocol. Vascular 3D images were generated on a dedicated workstation and also reviewed. COMPARISON: Comparison is made with prior CT dated 02/21/2020 FINDINGS: VASCULAR FINDINGS: Thoracic: Thoracic aorta is normal in caliber. Abdominal: There is an infrarenal abdominal aortic aneurysm with an [id number] stent graft in place. The proximal attachment site is just distal to the superior mesenteric artery trunk, and the distal attachment sites are in the common iliac arteries bilaterally. There has been no migration of the graft since the last exam. There is blooming on delayed phase images (series 15 image 54) which may represent a small type II endoleak, possibly from a lumbar artery. Celiac and superior mesenteric arteries are patent. Bilateral renal arteries patent. Inferior mesenteric artery occluded occluded. 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 No visceral stents are present. AAA volume (lowest renal artery to aortic bifurcation): 211 cc. This was not measured on the prior exam in 2019. The maximum diameter of the aneurysm is 61 mm AP x 67 mm [id number]. This is slightly increased since the prior exam when it measured 58 x 68 mm. The maximum diameter of the graft is 28 mm AP x 24 mm [id number]. This is stable since the prior exam. NON-VASCULAR FINDINGS: Chest: Upper lobe predominant emphysema. Biapical pleural scaring. Several sub 6mm pulmonary nodules measuring up to 4mm in the right upper lobe (series 12 image 84), and recommend attention on followup. No pleural effusion or pneumothorax. Small amount of mucus in the distal trachea. Subcentimeter right thyroid lobe nodule. No supraclavicular, axillary, or mediastinal adenopathy. Heart size is normal. Coronary artery calcifications No pericardial main pulmonary artery is normal in caliber. The esophagus is patulous along its length. Abdomen/Pelvis: Stomach and duodenal sweep are normal. Simple hepatic cyst in hepatic segment 6. Flash filling hemangioma near the hepatic dome in segment 8. Gallbladder is normal. No intrahepatic or extrahepatic biliary ductal dilatation. Pancreas normal. Spleen normal. Adrenal glands normal. A 1.4 cm nodule arising from the left kidney demonstrates higher than simple fluid attenuation but does not enhance in keeping with hemorrhagic/proteinaceous cyst. Several additional renal lesions are too small to characterize, several represent simple cysts. No hydronephrosis. Urinary bladder diverticulum. There is colonic diverticulosis without definite evidence of acute diverticulitis. Appendix is normal. Small bowel is normal without signs of bowel obstruction. No retroperitoneal or pelvic lymphadenopathy. Small fat-containing umbilical hernia. No suspicious osseous lesions. Chronic-appearing wedge deformity of T6. New compression deformity in L1 vertebral body since prior study in 2019. IMPRESSION: 1. 61 mm x 67 mm infrarenal abdominal aortic aneurysm with stent graft in place, slightly increased since the prior exam dated 02/21/2020 when it measured 58 x 68 mm. 2. AAA volume: 211 cc. 3. No evidence of stent migration. 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 4. 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 Consider cardiology consultation. 5. Several subcentimeter pulmonary nodules. Recommend follow-up chest CT in one year. 6. Age indeterminate deformities in the T6 and L1 vertebral bodies. The L1 compression deformity is new since 2020. Recommend correlation with midline back pain. Dictated by: Ivan Estrada MD, PHD The radiology attending physician has personally reviewed this study, and had reviewed and/or edited this written report and agrees with it. Electronically signed by: Jack Gonzalez M.D. 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
--- OUTSIDE RECORDS SUMMARY | 2024-09-29 10:40 | XMS_ITS | Encounter Summary ---
Author Organization [facility] Healthcare Address [address] [place] [address] Care Team Providers Care Training And Quality Manager Name Role Phone Erma Avila MD Primary Care Provider [phone] Encounter Details Date Type Department Care Team (Late st Contact Info) Description 09/04/[address] [facility] Cardiology [address] [place] [address] Rajesh Mack MD [address] [address] Social History Tobacco Use Types Packs/Day Years Used Date Smoking Tobacco: Some Days Cigarettes 0.5 58 Started: 02/09/1960; Last attempted to quit: 02/09/2017 Smokeless Tobacco: Never Comments:Smokes less than 1/ 2 ppd. 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 Contact: N SHOVELER documented in this encounter Plan of Treatment Not on file documented as of this encounter Visit Diagnoses Not on filedocumented in this encounter Care Teams Training And Quality Manager Relationship Specialty Start Date End Date Erma Avila MD PCP - General 02/19/21 documented as of this encounter
--- OUTSIDE RECORDS SUMMARY | 2024-09-29 10:40 | XMS_ITS | Clinical Summary ---
Author Organization [facility] al Address [address] [place] [address] Care Team Providers Care Forestry Aid Name Role Phone Erma Avila MD Primary Care Provider Allergies No known active allergies Medications ALPRAZolam [...] surgery on t he circ sys 02/09/2018 Encounters Date Type Department Care Team Description 09/04/[address] 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, unspecified vessel or lesion type (HCC); Shortness of breath 08/01/2024 11:59 PM SUPERVISOR METALIZING Anesthesia Event [facility] Operating Room [address] [place] [address] Kaylah Tavarez NP 07/25/2024 Orders Only [facility] [address] [facility] [address] [place] [id number] Jocelyn Doyle MD 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, unspecified vessel or lesion type (HCC) (Primary Dx); Dyspnea, unspecified type; Other specified symptoms and signs involving the circulatory and respiratory systems 07/24/2024 8:30 AM SUPERVISOR METALIZING - 07/24/2024 10:00 AM SUPERVISOR METALIZING Surgery [facility] Cardiac Catheterization Lab [address] [place] [address] Rajesh Mack MD LEFT HEART CATHETERIZATION WITH CORONARY ANGIOGRAPHY AND WITH OR WITHOUT LEFT VENTRICULOGRAM [id number] 07/24/2024 6:17 AM SUPERVISOR METALIZING - 07/24/2024 2:51 PM SUPERVISOR METALIZING Hospital Encounter [facility] Cardiac Catheterization Lab [address] [place] [address] Rajesh Mack MD Coronary artery disease involving united [place] coronary artery of [place] heart with other form of angina pectoris (HCC); Dyspnea, unspecified type Discharge Disposition: Discharge to home or self care from Last 3 Months Surgical History Surgery Date Site/Laterality Comments CARDIAC STENT PLACEMENT NASAL POLYP EXCISION ABDOMINAL AORTIC ANEURYSM REPAIR CARDIAC CATHETERIZATION 07/24/2024 Medical History Medical History Date Comments Hypertension Hyperlipidemia Acid indigestion CAD (coronary artery disease) Atrial fibrillation (CMS/HCC) (HCC) Emphysema lung (HCC) COPD (chronic obstructive pulmonary disease) (HC C) DICKERSON (dyspnea on exertion) GERD (gastroesophageal reflux disease) Ruptured infrarenal abdominal aortic aneurysm (A AA) (HCC) Family History Medical History Relation Name Comments Aneurysm Brother 1 Aneurysm - (Add ed by TW Conv) Heart attack Brother 2 Family history of myocardial infarction - (Added by TW Conv) Hyperlipidemia Brother 2 Hypertension Brother 2 Crohn's disease Daughter Family histo ry of Crohn's disease - (Added by TW Conv) Heart disease Father Family history of cardiac disorder - (Added by TW Conv) Hyperlipidemia Father Hypertension Father Cancer Maternal Grandmother Aneurysm Mother Aneurysm - (Add ed by TW Conv) Heart disease Mother Family history of cardiac disorder - (Added by TW Conv) Hyperlipidemia Mother Hypertension Mother Relation Name Status Comments Brother 1 (Age 64) Brother 2 Alive Daughter Father (Age 66) Maternal Grandmother Mother (Age 79) Social History Tobacco Use Types Packs/Day Years [...] on file Legal Sex Male 3:45 AM SUPERVISOR METALIZING Gender Identity Not on file Sexual Orientation Not on file Obstetrics History Last Filed Vital Signs Vital Sign Reading Time Taken Comments Blood Pressure 131/73 08/02/2024 11:12 AM SUPERVISOR METALIZING Pulse 80 08/02/2024 11:12 AM SUPERVISOR METALIZING Temperature 36.4 C (97.5 F) 08/02/2024 11:12 AM SUPERVISOR METALIZING Respiratory Rate 18 07/24/2024 1:20 PM SUPERVISOR METALIZING Oxygen Saturation 89% 08/02/2024 11:12 AM SUPERVISOR METALIZING Inhaled Oxygen Concentration - - Weight 75.8 kg (167 lb) 07/24/2024 6:53 AM SUPERVISOR METALIZING Height 180.3 cm (5' 11 ) 07/24/2024 6:53 AM SUPERVISOR METALIZING Body Mass Index 23.29 07/24/2024 6:53 AM SUPERVISOR METALIZING Plan of Treatment Health Maintenance Due Date Last Done Comments Colon Cancer Screening-Colonoscopy 1950 Depression Screening 1950 Hepatitis C Screening 1950 Pneumococcal vaccine 65+ (1 of 2 - PCV) 1955 DTaP/Tdap/Td Vaccine (1 - Tdap) 1960 Hepatitis B Screening 1967 Lung Cancer Screening 1999 Zoster Vaccine (1 of 2) 1999 Well Visit 65+ 2014 Influenza Vaccine (#1) 2024 Fall Risk Assessment 08/02/2025 08/02/2024 Abdominal Aortic Aneurysm (A AA) Screen Completed 05/28/2024, 02/15/2024, 02/15/2024, Additional history exists Medical Devices Implanted Type Area Transition Mgr Rn Device Identifier Shelf Expiration Date Model / Serial / Lot Stent Stent Heart Procedures Procedure Name Priority Date/Time Associated Diagnosis Comments EGFR Routine 08/02/2024 12:11 PM SUPERVISOR METALIZING 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, unspecified vessel or lesion type (HCC) BASIC METABOLIC PANEL Routine 08/02/2024 12:11 PM SUPERVISOR METALIZING 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, unspecified vessel or lesion type (HCC) PROTIME-INR Routine 08/02/2024 12:11 PM SUPERVISOR METALIZING 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, unspecified vessel or lesion type (HCC) APTT Routine 08/02/2024 12:11 PM SUPERVISOR METALIZING 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, unspecified vessel or lesion type (HCC) Shortness of breath CBC WITHOUT DIFFERENTIAL Routine 08/02/2024 12:11 PM SUPERVISOR METALIZING 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, unspecified vessel or lesion type (HCC) URINALYSIS, MICROSCOPIC ONLY Routine 08/02/2024 12:07 PM SUPERVISOR METALIZING 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, unspecified vessel or lesion type (HCC) TYPE AND SCREEN Routine 08/02/2024 12:07 PM SUPERVISOR METALIZING 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, unspecified vessel or lesion type (HCC) URINALYSIS AND REFLEX TO MICROSCOPIC AND CULTURE Routine 08/02/2024 12:07 PM SUPERVISOR METALIZING 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, unspecified vessel or lesion type (HCC) XR CHEST PA LATERAL 2 VIEWS Schedule Routine, Read Routine (OP Routine) 08/02/2024 11:46 AM SUPERVISOR METALIZING 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, unspecified vessel or lesion type (HCC) ECG 12-LEAD Routine 08/02/2024 11:32 AM SUPERVISOR METALIZING 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, unspecified vessel or lesion type (HCC) VASCULAR ACCESS US GUIDANCE Routine 07/24/2024 10:51 AM SUPERVISOR METALIZING Coronary artery disease involving united [place] coronary artery of united [place] heart with other form of angina pectoris (HCC) Dyspnea, unspecified type LEFT HEART CATHETERIZATION WITH CORONARY ANGIOGRAPHY AND WITH AND WITHOUT LEFT VENTRICULOGRAM Routine 07/24/2024 10:51 AM SUPERVISOR METALIZING Coronary artery disease involving united [place] coronary artery of united [place] heart with other form of angina pectoris (HCC) Dyspnea, unspecified type MODERATE SEDATION FIRST 15MIN 5+ YEAR [address] 07/24/2024 9:49 AM SUPERVISOR METALIZING Coronary artery disease involving united [place] coronary artery of united [place] heart with other form of angina pectoris (HCC) Dyspnea, unspecified type CTA CHEST ABDOMEN PELVIS Schedule Routine, Read Routine (OP Routine) 02/15/2024 12:23 PM CDT Ruptured infrarenal abdominal aortic aneurysm (AAA) (HCC) from Last 3 Months or Most Recently Relevant to Health Maintenance Results * eGFR (08/02/2024 12:11 PM SUPERVISOR METALIZING) eGFR 85 >=60 mL/min/1. 73 m2 Comment: [...] reviewed 2021. Blood 08/02/2024 12:1 1 PM SUPERVISOR METALIZING 08/02/2024 12:11 PM SUPERVISOR METALIZING Jocelyn Doyle MD LAB BLOOD ORDERABLES Final Res ult Performing Organization Address [facility] de Phone Number CHIKIS [address] [address] [facility] [place] [employer] [address] * (ABNORMAL) aPTT (08/02/2024 12:11 PM SUPERVISOR METALIZING) aPTT 39(H) 28 - 38 sec Comment: Interpretive Data Heparin therapeutic range: 66.0 - 100.0 seconds. Range based on correlation with therapeutic heparin activity range of 0.3 - 0.7 Units/mL. Current interpretive data was last revised on 2023. Blood 08/02/2024 12:1 1 PM SUPERVISOR METALIZING 08/02/2024 12:11 PM SUPERVISOR METALIZING Jocelyn Doyle MD LAB BLOOD ORDERABLES Final Res ult Performing Organization Address [facility] de Phone Number CHIKIS [address] [address] [facility] [place] [employer] [address] * (ABNORMAL) Protime-INR (08/02/2024 12:11 PM SUPERVISOR METALIZING) PT 14.8(H) 9.7 - 13.0 sec INR 1.36(H) 0.90 - 1.20 CHIKIS Comment: Interpretive data Oral anticoagulant therapeutic ranges: Venous thromboembolism prophylaxis or treatment: 2.0-3.0 CARDIOLOGY Standard range: 2.0-3.0 High-intensity range: 2.5-3.5 Refer to indication-specific guidelines for appropriate target ranges for prosthetic heart valve replacement. Current interpretive data was last revised on 2019. Blood 08/02/2024 12:1 1 PM SUPERVISOR METALIZING 08/02/2024 12:11 PM SUPERVISOR METALIZING Jocelyn Doyle MD LAB BLOOD ORDERABLES Final Res ult Performing Organization Address City/[facility]/ZIP Co de Phone Number CHIKIS SCHAEFER [address] Department [place] [employer] [address] * (ABNORMAL) CBC without differential (08/02/2024 12:11 PM SUPERVISOR METALIZING) WBC 9.4 3.8 - 9.9 K/cumm Hgb 15.2 13.0 - 17.5 g/dL [facility] Hct 44.7 38.9 - 50.3 % [facility] Plt 308 150 - 400 K/cumm [facility] MPV 9.1 9.1 - 12.3 fL [facility] RBC 4.52 4.30 - 5.80 M/cumm [facility] MCV 98.9(H) 81.3 - 96.4 fL [facility] MCH 33.6(H) 27.1 - 33.3 pg [facility] MCHC 34.0 32.3 - 35.7 g/dL [facility] RDW CV 13.2 11.1 - 14.9 % [facility] RDW SD 48.4(H) 35.7 - 48.1 fL [facility] NRBC abs 0.00 0.00 - 0.01 K/cumm [facility] Blood 08/02/2024 12:1 1 PM SUPERVISOR METALIZING 08/02/2024 12:11 PM SUPERVISOR METALIZING Jocelyn Doyle MD LAB BLOOD ORDERABLES Final Res ult Performing Organization Address City/[facility]/ZIP Co de Phone Number CHIKIS SCHAEFER [address] Department [employer] [address] * (ABNORMAL) Basic metabolic panel (08/02/2024 12:11 PM SUPERVISOR METALIZING) Sodium 131(L) 135 - 145 mmol/L Potassium, pl 4.4 3.3 - 4.9 mmol/L [facility] Chloride 91(L) 97 - 110 mmol/L [facility] CO2 31 22 - 32 mmol/L [facility] Anion gap 9 2 - 15 mmol/L [facility] BUN 13 6 - 25 mg/dL [facility] Creatinine 0.94 0.80 - 1.30 mg/dL [facility] Glucose 113 70 - 199 mg/dL [facility] Comment: Interpretive Data Fasting glucose >/= 126 [...] classification and Diagnosis of Diabetes Diabetes Care 202; 46: S19-S40. Current interpretive data was last revised 2022. Calcium 9.6 8.5 - 10.3 mg/dL [facility] Blood 08/02/2024 12:1 1 PM SUPERVISOR METALIZING 08/02/2024 12:11 PM SUPERVISOR METALIZING us Jocelyn Doyle MD LAB BLOOD ORDERABLES Final Res ult [facility] [address] Department [place] [address] * (ABNORMAL) Urinalysis reflex to microscopic and culture Urine, clean voided (08/02/2024 12:07 PM SUPERVISOR METALIZING) Color, ur Straw Yellow Clarity, ur Clear Clear [facility] Specific gravity, ur 1.006 1.003 - 1.030 [facility] pH, urine 7.0 [facility] Comment: Interpretive Data U rine pH is affected by diet, medications, systemic acid-base disturbances, and renal tubular function. pH may affect urinary stone formation. For example, urine pH below 6.0 may help reduce the tendency for calcium phosphate stones and pH greater than 6.0 may reduce the tendency for uric acid stone formation. Source: [facility] [employer] Current Interpretive Data was last revised on 2017 Protein, ur ql Negative Negative [facility] Glucose, ur ql Negative Negative [facility] Ketones, ur Negative Negative [facility] Bilirubin, ur Negative Negative [facility] Blood, ur Trace(A) Negative [facility] Urobilinogen, ur <2.0 <2.0 mg/dL [facility] Nitrite, ur Negative Negative [facility] Leukocyte esterase, ur Negative Negative [facility] UA reflex comment Reflex to microscopic UA will be performed. [facility] Urine, clean voided 08/02/2024 12:07 PM SUPERVISOR METALIZING 08/02/2024 12:21 PM SUPERVISOR METALIZING Jocelyn Doyle MD LAB MICROBIOLOGY - GENERAL ORD ERABLES Final Result Performing Organization Address [facility]/ZIP Co de Phone Number CHIKIS [address] [employer] [place], [place] [id number] * (ABNORMAL) Urinalysis, microscopic only (08/02/2024 12:07 PM SUPERVISOR METALIZING) WBC, ur 0-5 0 - 5 /HPF RBC, ur 3-5(A) 0 - 2 /HPF [facility] Mucous, ur Present(A) [facility] Culture Reflex Comment Reflex conditions for urine culture (WBC >10) not met. [facility] Urine, clean voided 08/02/2024 12:07 PM SUPERVISOR METALIZING 08/02/2024 12:21 PM SUPERVISOR METALIZING Jocelyn Doyle MD LAB URINE ORDERABLES Final Res ult Performing Organization Address [facility]/ZIP Co de Phone Number CHIKIS SCHAEFER [address] Department [place] [employer] [address] * Type and screen (08/02/2024 12:07 PM SUPERVISOR METALIZING) ABO Rh A Positive Lisa, indirect Negative [facility] Blood 08/02/2024 12:0 7 PM SUPERVISOR METALIZING 08/02/2024 12:12 PM SUPERVISOR METALIZING Narrative [facility] - 08/02/2024 3:03 PM SUPERVISOR METALIZING Has the patient had Daratumumab or Isatuximab in the past 6 months?->Unknown Jocelyn Doyle MD LAB BLOOD BANK TEST ORDERABLES Final Result Performing Organization Address City/[facility]/ZIP Co de Phone Number CHIKIS SCHAEFER [address] Department [place] [address] * XR Chest PA Lateral 2 View (08/02/2024 11:46 AM SUPERVISOR METALIZING) Anatomical Region Laterality Modality Body, Chest N/A Computed Radiogr aphy 08/02/2024 11:5 5 AM SUPERVISOR METALIZING Impressions 08/02/2024 11:55 AM SUPERVISOR METALIZING No failure. Electronically signed by: Marleny Brown M.D. Narrative 08/02/2024 11:55 AM SUPERVISOR METALIZING EXAMINATION: XR CHEST PA LATERAL 2 VIEWS [...] failure. Electronically signed by: Marleny Brown M.D. Result [facility] Jocelyn Doyle MD IMG XR PROCEDURES Final Result * ECG 12 lead (08/02/2024 11:32 AM SUPERVISOR METALIZING) 08/02/2024 11:3 2 AM SUPERVISOR METALIZING Narrative [facility] - 08/02/2024 2:44 PM SUPERVISOR METALIZING Vent Rate: 78 bpm RR Interval: 760 msec ME Interval: 0 msec QRS Duration: 113 msec QT Interval: 370 msec QTC Interval: 404 msec P-R-T [place]: 0 - 65 - 53 degrees IMPRESSION: ATRIAL FIBRILLATION PROBABLE INFERIOR MYOCARDIAL INFARCTION , PROBABLY OLD ABNORMAL ECG Electronically Signed By: Dr. Julien Booth [facility] Jocelyn Doyle MD ECG ORDERABLES Final Result Performing Organization Address City/[facility] Co de Phone Number [facility] * LEFT HEART CATHETERIZATION WITH CORONARY ANGIOGRAPHY AND WITH AND WITHOUT LEFT VENTRICULOGRAM, VASCULAR ACCESS US GUIDANCE (07/24/2024 10:51 AM SUPERVISOR METALIZING) Anatomical Region Laterality Modality X-Ray Angiograph y Addenda Addendum by Rajesh Mack MD on 07/24/2024 11:10 AM SUPERVISOR METALIZING LEFT HEART CATHETERIZATION AND CORONARY ANGIOGRAM REPORT [...] groin hematoma, retroperitoneal bleed, vessel perforation; periprocedural WA, cardiac arrhythmias, stroke, contrast induced nephropathy, and . After discussing all the benefits, risks and alternatives, patient was willing to proceed with the procedure. PROCEDURES PERFORMED: Left heart catheterization- selective left and right coronary angiogram, left ventriculogram, LV pressure management and hemodynamic assessment Ultrasound-guided right radial access (CPT 39523) Moderate sedation-CPT code 18747 MODERATE SEDATION: Midazolam 2 mg , Fentanyl 50 mcg, start time 1009 stop time 1051, total direct ytlp-ki-yfmm monitoring of conscious sedation 42 minutes (CPT 54797) TRAINED OBSERVER: Latanya Bedoya RN was trained observer for moderate sedation. ACCESS SITE: Right radial artery PROCEDURE: After obtaining informed consent, patient was brought to the laborer airport maintenance and prepped and draped in the usual sterile manner. Time-out and immediate reassessment of the patient was performed. After local anesthesia with lidocaine, right radial artery access was taken with micropuncture needle under ultrasound guidance followed by insertion of a 6 [place] sheath. Patient received 0.5 mg of verapamil, [...] is a small to medium caliber vessel. Etri-oe-octfz collaterals are seen supplying distal RCA RIGHT CORONARY ARTERY: Chronic total occlusion in the mid segment with 100% ISR; slow filling of the RCA through bridging collaterals. Distal vessel supplied by kzhd-df-pjznj collaterals. LEFT VENTRICULOGRAM: LV dysfunction with segmental [...] ISR (filling of RCA through bridging, and ewev-xb-kzoip collaterals) LV dysfunction with segmental wall motion abnormality with akinetic mid-basal inferior segments; LVEF about 40-45%; LVEDP elevated at 26 mmHg. PLAN/RECOMMENDATIONS: Given complexity of the LAD disease with multiple aneurysmal segments and high-grade stenosis, and HOPPER ATTENDANT/100% ISR of RCA, patient will be referred to surgery for surgical revascularization. Potential targets for CABG include distal LAD; high OM/ramus intermedius, and distal RCA. Optimal medical treatment for CAD including antiplatelet, statin; and standard GDMT for LV dysfunction. Smoking cessation. Voice recognition software was used to complete this document, therefore, stunt man variances may occur. Rajesh Mack MD, [facility] 07/24/24 us Rajesh Mack MD CV CARDIAC [...] an infrarenal abdominal aortic aneurysm with an lxdec-da-zrhne stent graft in place. The proximal attachment [...] is 61 mm AP x 67 mm pdcgj-sx-yoob. This is slightly increased since the prior exam when it measured 58 x 68 mm. The maximum diameter of the graft is 28 mm AP x 24 mm [id number]-[id number]. This is stable since the prior exam. [...] an infrarenal abdominal aortic aneurysm with an nchdh-vi-voyog stent graft in place. The proximal attachment [...] is 61 mm AP x 67 mm ipsqm-pb-pghp. This is slightly increased since the prior exam when it measured 58 x 68 mm. The maximum diameter of the graft is 28 mm AP x 24 mm zwgvb-og-jder. This is stable since the prior exam. [...] Recently Relevant to Health Maintenance Insurance [facility]ICARE [facility] Advance Directives For more information, please contact: [phone] Documents on File Type Date Recorded Patient Frame Stripper Expl anation Power of Claims Processor 10/30/2022 2:34 PM Care Teams Forestry Aid Relationship Specialty Start Date End Date Erma Avila MD PCP - General 02/19/21
== END 2024-09-29 10:24 | disposition home or self-care (01) ==
PROVIDERS: PCP Family Medicine; Visit Provider Nurse Practitioner Family
DX: R91.8 Other nonspecific abnormal finding of lung field (principal); J43.9 Emphysema, unspecified
CPT/HCPCS: 71250

== ENCOUNTER 2025-07-09 12:52 | Observation (INO) | payer MEDICARE, SELFPAY ==
[2025-07-09] VITALS (27 sets, daily range): BP systolic 117–184; BP diastolic 79–105; PULSE 65–99; RESP 12–23; TEMP 36.4–37.3; O2SAT 79–99; BMI 21.7
--- NOTE | ~2025-07-09 | CT_ITS ---
EXAMINATION: CTA chest abdomen pelvis DATE: 07/09/2025 15:24 INDICATION: Left chest and flank pain. TECHNIQUE: Computed tomographic angiography (CTA) of the chest, abdomen, and pelvis was performed without and with 100 mL Omnipaque-350 intravenous contrast. Volume-rendered 3D-reconstructions of the aorta and large arteries were constructed by the technologist on a separate workstation. Additional 3D reconstructions of the chest utilizing coronal maximum intensity projection (MIP) were performed. Automated exposure control and iterative reconstruction technique were employed. The dose-length product was 460.08 mGy-cm. COMPARISON: Chest CT dated 09/29/2024, 06/21/[address] abdomen and pelvis dated 02/22/2019 FINDINGS: Chest: Moderate emphysema. No interval change in pulmonary nodules measuring 3 mm in the right middle lobe and 4 mm along the right minor fissure consistent with old granulomatous disease.. No pneumonia, pulmonary edema, pleural effusion or pneumothorax. Mild cardiomegaly. Atherosclerotic coronary artery calcifications and/or stenting along the left anterior descending coronary artery. No pericardial effusion. Thoracic aorta is normal in caliber with no dissection. No pathologically enlarged thoracic lymphadenopathy. Mild to moderate thoracic spondylosis with no significant change in chronic T6 compression fracture with 40% anterior vertebral body height loss. Abdomen and pelvis: 1.3 cm enhancing lesion at the dome of the liver without significant interval change since CT dated 02/03/2017 consistent with a benign etiology most likely a flash filling hemangioma. Small high attenuation gallstones along the dependent wall of the normal-appearing gallbladder. Spleen, pancreas and right adrenal gland are normal. There is a relatively high density 2.7 x 2.3 cm left adrenal mass which is new since 09/29/2024. Multiple bilateral renal cysts the largest measuring 10.4 cm at the posterior upper pole of the right kidney. No significant change since the most recent prior contrast CT in a few high attenuation complex proteinaceous/hemorrhagic cysts at the left kidney. Moderate diverticulosis with descending and sigmoid colon predominance without adjacent inflammatory stranding to suggest diverticulitis. Small bowel and appendix are normal. There is diffuse mild bladder wall thickening along with a 4.1 cm left posterior bladder diverticulum likely related to chronic outlet obstruction from the enlarged prostate which measures 4.4 x 3.7 cm. Aortobiiliac endoluminal stent graft beginning between the level of the takeoff of the superior mesenteric and bilateral renal arteries and extending into the bilateral common iliac arteries. This spans a fusiform infrarenal abdominal aortic aneurysm which measures 7.7 x 6.8 cm which is similar in size to study dated 02/03/2017 at which time the aneurysm measured 8.0 x 6.8 cm but increased since an intervening CT dated 02/22/2019 at which time the aneurysm measured 6.7 x 6.0 cm. There is no evident arterial phase and oblique. Mild thoracolumbar dextrocurvature with mild lower thoracic and minimal lumbar spondylosis. Mild bilateral hip and sacroiliac osteoarthritis. IMPRESSION: 1. Aortobiiliac endoluminal stent graft spanning a 7.7 x 6.8 cm infrarenal abdominal aortic aneurysm which is similar in size to study from 02/03/2017 but increased in size since an intervening study of 02/22/2019 at which time the aneurysm measured 6.7 x 6.0 cm. No arterial phase endoleak identified however delayed imaging was not obtained which decreases sensitivity. 2. Moderate emphysema. 3. Mild cardiomegaly. 4. Diffuse bladder wall thickening and bladder diverticulum likely related to chronic outlet obstruction from the enlarged prostate. Reviewed, dictated and finalized at location A. PULLER IMPRESSION: 1. Aortobiiliac endoluminal stent graft spanning a 7.7 x 6.8 cm infrarenal abdo sravanthi aortic aneurysm which is similar in size to study from 02/03/2017 but incr eased in size since an intervening study of 02/22/2019 at which time the aneurys m measured 6.7 x 6.0 cm. No arterial phase endoleak identified however delayed imaging was not obtained which decreases sensitivity. 2. Moderate emphysema. 3. Mild cardiomegaly. 4. Diffuse bladder wall thickening and bladder diverticulum likely related to c hronic outlet obstruction from the enlarged prostate.
--- NOTE | ~2025-07-09 | XR_ITS ---
EXAMINATION: XR chest 2V DATE: 07/09/2025 13:38 INDICATION: Left-sided back pain. TECHNIQUE: Frontal and lateral views of the chest were obtained. COMPARISON: CT chest dated 09/29/2024. FINDINGS: Borderline enlargement of hardware coronary artery stent in place. Atherosclerotic aorta. Emphysematous lungs without focal pulmonary lesions. IMPRESSION: 1. No acute pulmonary lesions. Emphysema lungs. Severe atherosclerotic aorta. Mild cardiomegaly with coronary artery stent in place. Reviewed, dictated and finalized at location T. RULER OPERATOR IMPRESSION: 1. No acute pulmonary lesions. Emphysema lungs. Severe atherosclerotic aorta. M ild cardiomegaly with coronary artery stent in place.
--- NOTE | 2025-07-09 13:00 | ECG_ITS ---
Test Date: 2025-07-09 13:05:03 Measurements Intervals [place] Rate: P: 0 PA: 0 QRS: 0 QRSD: 0 T: 0 QT: 0 QTc: 0 Interpretive Statements PROBABLE ATRIAL FIBRILLATION PREMATURE VENTRICULAR CONTRACTION RIGHT BUNDLE BRANCH BLOCK ARTIFACT LIMITS INTERPRETATION ABNORMAL ECG Electronically Signed On 07-09-2025 13:59:23 YARD COORDINATOR by Prabhjot Mjeia M.D.
[2025-07-09] MEDS: ONDANSETRON INJ 4 MG/2 ML VIAL IV PUSH ×3 (13:07→23:09)
[2025-07-09] MEDS: KETOROLAC 15 MG/ML VIAL (*BKC) IV PUSH (13:37)
--- NOTE | 2025-07-09 13:57 | PC.NURSE ---
Toradol was dropped on the floor, overrode another dose in Pyxis. only 1 dose was given
--- NOTE | 2025-07-09 14:14 | ED.GENADULT ---
HPI - General Adult General Chief complaint: Back Pain/Injury Stated complaint: L axillary pain Time Seen by Provider: 07/09/25 12:55 History of Present Illness HPI narrative: Patient is a 74-year-old male who presents ER with pain to left back. Started left low back min moved up the back towards his shoulder and the anterior lateral pack. No aggravating or alleviating factor. He had been walking through the grocery store when it began. He did feel nauseous and sweaty. Pain has since gone away. He did receive some fentanyl by EMS. No fevers or chills or sweats. No cough. 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 That was in 2017. He had revision to his AAA in the last year. He is anticoagulated on Coumadin as well. Related Data Home Medications ?Medication ?Instructions ?Recorded ?Confirmed ?Last Taken ?Type ascorbic acid (vitamin C) 1,000 mg 1,000 mg PO DAILY 05/28/20 07/09/25 07/09/25 09:00 History tablet,extended release vitamin B comp and C no.3 15 mg-10 1 cap PO 4XW 05/28/20 07/09/25 07/08/25 09:00 History mg-50 mg-5 mg-300 mg capsule (B Complex Plus Vitamin C) cholecalciferol (vitamin D3) 25 25 mcg PO DAILY 11/27/20 07/09/25 Unknown History mcg (1,000 unit) capsule metoprolol succinate 25 mg 25 mg PO DAILY 12/09/22 07/09/25 07/09/25 09:00 History tablet,extended release 24 hr pantoprazole 20 mg tablet,delayed 20 mg PO .HS 01/18/23 07/09/25 07/08/25 History release acetaminophen 325 mg capsule 650 mg PO Q4H PRN fever or pain 04/11/25 07/09/25 Unknown History cholecalciferol (vitamin D3) 25 25 mcg PO DAILY 04/11/25 07/09/25 07/09/25 09:00 History mcg (1,000 unit) capsule clopidogrel 75 mg tablet 75 mg PO DAILY 04/11/25 07/09/25 07/09/25 09:00 History warfarin 5 mg tablet 7.5 mg PO DAILY 04/11/25 07/09/25 07/09/25 History furosemide 20 mg tablet 20 mg PO DAILY 07/09/25 07/09/25 07/08/25 21:00 History warfarin 10 mg tablet 10 mg PO WEEKLY 07/09/25 07/09/25 Unknown History Allergies Allergy/AdvReac Type Severity Reaction Status Date / Time No Known Allergies Allergy Unknown Verified 07/09/25 20:44 Review of Systems Review of Systems: All systems reviewed & are unremarkable except as noted in HPI and below Constitutional: Constitutional: Reports no additional constitutional complaints ENT: Reports system reviewed and no additional complaints, except as documented Cardiovascular: Cardiovascular: Reports no additional cardiovascular complaints Respiratory: Respiratory: Reports no additional respiratory complaints Gastrointestinal: Gastrointestinal: Reports no additional gastrointestinal complaints Musculoskeletal: Musculoskeletal: Reports no additional musculoskeletal complaints [facility] Past Medical History Medical History Hyperlipidemia Tobacco abuse Benign prostatic hyperplasia Hypertension Gastroesophageal reflux disease Coronary artery disease Chronic obstructive pulmonary disease Prediabetes Abdominal aortic aneurysm (2016) Anxiety Asthma Peripheral vascular disease Lung nodule Surgical History Surgical History History of colonoscopy History of heart artery stent (2003) History of cardiac catheterization (2003) History of endovascular stent graft for abdominal aortic aneurysm History of tonsillectomy Family History Family History Father Heart disease Hypertension Alcoholism Mother Heart disease Depression Anxiety Sibling Alcoholism Heart disease Social History Social History Social History: Surrogate medical decision maker: Manish Infante (brother) or Quita Zavala (daughter). Code status: Full code. Smoking packs per day: 0.5 Smoking cigarettes per day: 10.0 Years smoked: 60 Smoking pack-years: 30.00 Smoking status: Current every day smoker Second hand tobacco smoke exposure: Yes Alcohol intake: never Substance use: never Substance use type: does not use Lack of Transportation: No Lack of Food: Never True Current Housing: I Have Housing Concerned About Future Housing: No Difficulty Paying Gas/Electric Bills: No Difficulty Paying for Meds: No Currently Unemployed: No Education: Associate Degree Difficulty w/ Childcare or Family Care: No Living arrangements: with family Occupation/Education: retired Spiritual care concerns: No Agree to blood products: Yes Exam Narrative: GENERAL: Well-appearing, well-nourished, and in no acute distress. HEAD: Normocephalic, atraumatic. ENT: Mucous membranes moist. CHEST: Clear to auscultation. No respiratory distress. HEART: Irregular irregular rate and rhythm. Normal peripheral pulses. ABDOMEN: Soft, nontender, nondistended. Back: No reproducible midline or paraspinal tenderness the T/L-spine. EXTREMITIES: Normal range of motion. No edema. SKIN: Warm, dry, no rash. NEURO: Alert and oriented x3. PSYCH: Normal mood and affect. Course Course Emergency Course: 1550: Pain returning. left lateral back along the border of the ribs on palpation. Imaging without acute issue. Patient is persistently hypoxic in the ER. No real improvement with nebulizer treatment. May be having COPD flare. Will admit for scheduled steroids and nebulizers. Patient verbalized understanding treatment plan. Slightly elevated BNP but no pulmonary edema. Troponin has been negative he has no chest pain. Vital Signs Vital signs: Vital Signs Temperature 97.6 F 07/09/25 12:51 Pulse Rate 82 07/09/25 12:51 Respiratory Rate 20 07/09/25 12:51 Blood Pressure 157/98 H 07/09/25 12:51 Pulse Oximetry 93 07/09/25 12:51 Oxygen Delivery Room Air 07/09/25 12:51 Temperature 97.6 F 07/09/25 12:51 Pulse Rate 88 07/09/25 19:15 Respiratory Rate 21 H 07/09/25 19:15 Blood Pressure 170/97 H 07/09/25 19:05 Pulse Oximetry 98 07/09/25 19:15 Oxygen Delivery Nasal Cannula 07/09/25 14:33 Oxygen Flow Rate 2 07/09/25 14:33 Medical Decision Making Differential Diagnosis Differential Diagnosis: Aortic dissection, pulmonary embolism, ruptured AAA, back strain, rib fracture, pneumothorax, ACS Vital Signs Vital Signs: Vital Signs Temperature 97.6 F 07/09/25 12:51 Pulse Rate 82 07/09/25 12:51 Respiratory Rate 20 07/09/25 12:51 Blood Pressure 157/98 H 07/09/25 12:51 Pulse Oximetry 93 07/09/25 12:51 Oxygen Delivery Room Air 07/09/25 12:51 Temperature 97.6 F 07/09/25 12:51 Pulse Rate 88 07/09/25 19:15 Respiratory Rate 21 H 07/09/25 19:15 Blood Pressure 170/97 H 07/09/25 19:05 Pulse Oximetry 98 07/09/25 19:15 Oxygen Delivery Nasal Cannula 07/09/25 14:33 Oxygen Flow Rate 2 07/09/25 14:33 Lab Data 07/09/25 14:24 07/09/25 14:24 Labs: Lab Results 07/09/25 07/09/25 07/09/25 Range/Units 14:24 16:04 16:18 WBC 11.2 H (4.5-10.0) K/mm3 RBC 4.23 L (4.6-6.20) M/mm3 Hgb 14.8 (14.0-18.0) g/dL Hct 43.7 (42.0-52.0) % MCV 103.3 H (80-100) fl MCH 35.0 H (26-34) pg MCHC 33.9 (32-36) g/dl RDW 13.8 (11.5-14.5) % Plt Count 273 (150-375) k/mm3 MPV 10.3 (7.4-10.4) fl Immature Gran % (Auto) 0.4 (0-0.5) % Neut % (Auto) 83.3 H (45.5-73.1) % Lymph % (Auto) 9.4 L (18.3-44.2) % Jenkins % (Auto) 5.7 (2.6-8.5) % Eos % (Auto) 0.8 (0-4.4) % Baso % (Auto) 0.4 (0.2-1.2) % Lymph # (Auto) 1.05 (0.9-3.2) K/mm3 Jenkins # (Auto) 0.6 (0.1-0.6) K/mm3 Eos # (Auto) 0.1 (0-0.3) K/mm3 Baso # (Auto) 0.1 (0.0-0.1) K/mm3 Abs Immat Gran (auto) 0.04 H (0.00-0.031) K/mm3 Absolute Neuts (auto) 9.3 H (1.3-6.7) K/mm3 Absolute Nucleated RBC 0.000 (0.0-0.012) K/mm3 Nucleated RBC % 0.0 (0.0-0.2) % PT 25.4 H (11.1-14.7) Seconds INR 2.4 APTT 42.5 H (22.3-36.8) Seconds Sodium 133 L (137-145) mmol/L Potassium 3.2 L (3.4-5.0) mmol/L Chloride 96 L (98-107) mmol/L Carbon Dioxide 27 (22-30) mmol/L Anion Gap 10 (4-12) mmol/L BUN 17 (9-20) mg/dL Creatinine 0.90 (0.7-1.3) mg/dL Estim Creat Clear Calc 63 ml/min Estimated GFR > 60 (59 - ) Glucose 118 H (65-110) mg/dL Calcium 8.6 (8.4-10.2) mg/dL Total Bilirubin 0.5 (0.2-1.3) mg/dL AST 43 (17-59) U/L ALT 45 (6-50) U/L Alkaline Phosphatase 107 (38-126) U/L Troponin I 0.015 0.016 (0.000-0.034) ng/mL NT-Pro-B Natriuret Pep 2890 H (19.9-100) pg/mL Total Protein 7.4 (6.3-8.2) g/dL Albumin 4.0 (3.5-5.1) g/dL Urine Color Yellow (Yellow) Urine Appearance Clear (Clear) Urine pH 6.0 (5.0-9.0) Ur Specific Champion 1.026 (1.001-1.035) Urine Protein 1+ H (Negative) mg/dL Urine Glucose (UA) Negative (Negative) mg/dL Urine Ketones 1+ H (Negative) mg/dL Ur Blood (Man) Non-hemolyzed trace (Negative) Urine Nitrate Negative (Negative) Urine Bilirubin Negative (Negative) Urine Urobilinogen 1.0 (<2.0) mg/dL Leukocyte Esterase Rfl Negative (Negative) LIZA/UL Urine RBC 21-50 H (0-2) /hpf Urine WBC 0-5 (0-3) /hpf Ur Squamous Epith Cells None seen (Few) /hpf Urine Bacteria None seen /hpf Urine Casts 3-5 Imaging Data Radiologist's impression: ITS Impressions Chest X-Ray 07/09/25 13:42 IMPRESSION: 1. No acute pulmonary lesions. Emphysema lungs. Severe atherosclerotic aorta. Mild cardiomegaly with coronary artery stent in place. Chest/Abdomen/Pelvis CTA 07/09/25 15:32 IMPRESSION: 1. Aortobiiliac endoluminal stent graft spanning a 7.7 x 6.8 cm infrarenal abdominal aortic aneurysm which is similar in size to study from 02/03/2017 but increased in size since an intervening study of 02/22/2019 at which time the aneurysm measured 6.7 x 6.0 cm. No arterial phase endoleak identified however delayed imaging was not obtained which decreases sensitivity. 2. Moderate emphysema. 3. Mild cardiomegaly. 4. Diffuse bladder wall thickening and bladder diverticulum likely related to chronic outlet obstruction from the enlarged prostate. ECG Data EKG #1: Attestation: I personally reviewed and interpreted this ECG as follows: ECG completion date: 07/09/25 ECG completion time: 16:29 EKG Interpretation: normal rate (86), atrial fibrillation, non-specific ST changes, widened QRS and RBBB (Incomplete) Discharge Plan Discharge Clinical Impression: Hypoxia, COPD exacerbation, Back pain Patient Disposition: Still a Patient Condition: Stable
[2025-07-09 14:31] LABS: Hematocrit 43.7 % (42.0-52.0); Hemoglobin 14.8 g/dL (14.0-18.0); Immature Granulocyte Percent A 0.4 % (0-0.5); Lymphocytes Absolute Auto 1.05 K/mm3 (0.9-3.2); Mean Corpuscular HGB Conc 33.9 g/dl (32-36); Mean Corpuscular Hemoglobin 35.0 pg (26-34); Mean Corpuscular Volume 103.3 fl (80-100); Nucleated Red Blood Cells Absolute Auto 0.000 K/mm3 (0.0-0.012); Nucleated Red Blood Cells Perc 0.0 % (0.0-0.2); Platelet Count Result 273 k/mm3 (150-375); Red Blood Count 4.23 M/mm3 (4.6-6.20); White Blood Count 11.2 K/mm3 (4.5-10.0)
[2025-07-09] MEDS: MORPHINE SULFATE (*CRX) 4 MG/ML INJ 2 MG IV PUSH ×3 (14:39→22:02)
[2025-07-09 14:43] LABS: INR 2.4; Partial Thromboplastin Time 42.5 Seconds (22.3-36.8); Prothrombin Time 25.4 Seconds (11.1-14.7)
[2025-07-09 14:46] LABS: Alanine Aminotransferase 45 U/L (6-50); Albumin Level 4.0 g/dL (3.5-5.1); Alkaline Phosphatase 107 U/L (38-126); Anion Gap 10 mmol/L (4-12); Aspartate Amino Transferase 43 U/L (17-59); Bilirubin,Total 0.5 mg/dL (0.2-1.3); Blood Urea Nitrogen 17 mg/dL (9-20); Calcium 8.6 mg/dL (8.4-10.2); Carbon Dioxide 27 mmol/L (22-30); Chloride 96 mmol/L (98-107); Estimated CRCL calculation 63 ml/min; Estimated Glomerular Filt Rate > 60; Glucose 118 mg/dL (65-110); Potassium 3.2 mmol/L (3.4-5.0); Sodium 133 mmol/L (137-145); Total Protein 7.4 g/dL (6.3-8.2)
[2025-07-09 14:57] LABS: NT Pro B Type Natriuretic Pept 2890 pg/mL (19.9-100); Troponin I 0.015 ng/mL (0.000-0.034)
--- OUTSIDE RECORDS SUMMARY | 2025-07-09 15:19 | XMS_ITS | Clinical Summary ---
Author Organization [facility] al Address [address] [place] [address] Care Team Providers Care Glass Installer Name Role Phone Erma Avila MD Primary Care Provider [phone] Renetta Mijares MD PhD Unavailable [phone] Allergies No known active allergies Medications ALPRAZolam (XANAX) 0.5 mg tablet Take 1 tablet (0.5 mg total) by mouth 2 (two) times a day Active atorvastatin (LIPITOR) 20 mg tablet Take [...] puffs every 4 (four) hours as needed 05/13/20 22 Active albuterol 2.5 mg /3 mL (0.083 %) nebulizer solution Take 3 mL (2.5 mg total) by nebulization every 6 (six) hours as needed 05/13/20 22 Active cholecalcifero l (Vitamin D3) 1,000 unit capsule Take 1 capsule (1,000 Units total) by mouth every morning Active lisinopriL (PRINIVIL,ZEST RIL) 10 mg tablet Take 1 tablet (10 mg total) by mouth every morning 04/20/20 24 Active ascorbic acid (VITAMIN C) 1,000 mg tablet Take 1 tablet (1,000 mg total) by mouth every morning Active budesonide-gly copyr-formoter ol (Breztri Aerosphere) 160-9-4.8 mcg/actuation inhaler Inhale 2 puffs 2 (two) times a day Active acetaminophen (TYLENOL) 325 mg tabletIndicati ons:Fever,Pain Take 2 tablets (650 mg total) by mouth every 4 (four) hours as needed for pain or headaches 04/04/20 25 Active docusate sodium (COLACE) 100 mg capsuleIndicat ions:constipat ion Take 1 capsule (100 mg total) by mouth daily as needed for constipation (2nd line) 20 capsule 04/04/20 25 Active metoprolol XL (TOPROL-XL) 25 mg extended release tablet TAKE 1 TABLET EVERY DAY 90 tablet 1 04/09/20 25 Active furosemide (LASIX) 20 mg tablet Take 1 tablet (20 mg total) by mouth every morning 30 tablet 11 05/03/[address] (PROTONIX) 20 mg EC tablet TAKE 1 TABLET EVERY DAY 90 tablet 3 05/03/20 25 Active clopidogreL (PLAVIX) 75 mg tablet Take 1 tablet (75 mg total) by mouth daily 90 tablet 6 05/23/20 25 026 Active warfarin (COUMADIN) 5 mg tablet TAKE 1 AND 1/2 TABLETS BY MOUTH ON MON, WED, FRI AND 1 TABLET ON TUE, THUR, SAT, SUN. 34 tablet 06/26/20 25 Active warfarin (COUMADIN) 5 mg tabletIndicati ons:Venous Thrombosis Take one and one-half tab (7.5 mg) on Mon, Wed, Fri and one tab (5 mg) on Tue, Thur, Sat, Sun. 34 tablet 05/22/20 25 025 Discontinued warfarin (COUMADIN) 5 mg tablet TAKE 1 AND 1/2 TABLETS BY MOUTH ON MON, WED, FRI AND 1 TABLET ON TUE, THUR, SAT, SUN. 34 tablet 06/14/20 25 025 Discontinued Active Problems Problem Noted Date Diagnosed Date Acute respiratory failure with hypoxia Atrial fibrillation 04/10/2025 Urinary retention 04/04/2025 Assessment & Plan (04/04/2025 7:04 AM CDT): Ornelas bloody upon arrival to the floor. Pulled ornelas and failed void trial. 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 Recent imaging has shown an increase in the size of the aneurysm from 6.7 cm to 7.1 cm over the past year, with evidence of an endoleak and flow within the aneurysm sac. - pain control -IPAP -OR on 04/03 for CAROLINA. Procedure went well but delirium post op that has since resolved -goal normotension -DOACs too expensive, considering dc on warfarin. Will talk to cards if this is ok Chronic systolic congestive heart failure 2024 Assessment & Plan (04/04/2025 7:03 AM CDT): CHF with reduced ejection fraction, recent LVEF 35-40%. Follows with cardiology. Currently on metoprolol succinate and lisinopril and pRN Lasix. Unable to switch APARNA-inhibitor to ARNI or add SGL T2 inhibitor due to patient's cost concerns. -resume home metop -holding lisinopril and lasix for OR. Now holding for hypotension -strict I/O, daily weights Chronic bronchitis, unspecified chronic bronchit is type 03/26/2025 Paroxysmal atrial fibrillation 03/26/2025 Assessment & Plan (04/01/2025 6:40 PM CDT): Home medications: Metoprolol 25mg, not on any anticoagulation - continue Metoprolol 25mg - Cardiology consult given coronary aneurysm/pseudoaneurysm and afib without anticoagulation (pending) - on hep gtt Assessment & Plan (04/04/2025 7:03 AM CDT): On eliquis and metop at home, patient self Dc'd eliquis 09/17 cost -cont home metoprolol for now -heparin gtt held post op Coronary artery disease 06/19/2024 Assessment & Plan (04/01/2025 6:39 PM CDT): Home medications: ASA 81mg, Atorvastatin 20mg, Lisinopril 10mg, no longer taking Eliquis - Continue ASA, atorvastatin - Cardiology consult given coronary aneurysm/pseudoaneurysm and afib without anticoagulation (pending) - TTE tomorrow Assessment & Plan (04/04/2025 7:03 AM CDT): s/p Status post 3.8 x 18 mm Bx sonic Hepacoat stent mid RCA (on 12/06/2002 in the setting of abnormal MPI). LHC on 2023 showed multiple aneurysmal segments with high-grade stenosis in mid LAD; 50-70% stenosis at the ostium of ramus intermedius/high OM branch; chronic total occlusion mid RCA/100% ISR (filling of RCA through bridging, and ekyb-wa-exwvk collaterals) LV dysfunction with segmental wall motion abnormality with akinetic mid-basal inferior segments; LVEF about 40-45%; LVEDP elevated at 26 mmHg. -previous plans from cards was for surgical intervention. Potential targets for CABG include distal LAD; high OM/ramus intermedius, and distal RCA. Optimal medical treatment for CAD including antiplatelet, statin; and standard GDMT for LV dysfunction. Smoking cessation. - Cardiology consult for pre-op risk stratification --TTE: normal EF 50%, global longitudinal strain is abnormal. Normal RV. No significant valvular abnormalities -s/p LHC on 04/02: Successful PCI of calcified, tortuous, linked ectasia/aneurysm of the LAD covered with 3.5 x 30 mm nehemiah [place] drug-eluting stent post dilated to 4 mm - continue asprin 81 mg - increase to atorva 80 mg daily - continue metop XL 25 mg daily -plavix load after LHC. Cont plavix daily. Dc on DAPT. Dyspnea 06/19/2024 Ruptured infrarenal abdominal aortic aneurysm (A AA) 05/28/2024 Encntr for surgical aftcr following surgery on t he circ sys 02/09/2018 Resolved Problems Problem Noted Date Diagnosed Date Resolved Date Type Ib endoleak of aortic graft 04/03/2025 04/04/2025 Encounters Date Type Department Care Team Description 06/28/2025 Anticoagulation Visit [facility] Cardiology [address] [place] [address] [place] [address] [phone] Samaria Parker RN Atrial fibrillation, unspecified type (HCC) (Primary Dx) 06/15/2025 Anticoagulation Visit [place] [address] [place] [address] [phone] Samaria Parker RN Atrial fibrillation, unspecified type (HCC) (Primary Dx) 06/12/2025 Telephone [facility] Surgery [address] [facility] Floor 1 [place] [address] Renetta Mijares MD PhD Communication 06/12/[address] [phone] Rajesh Mack MD Med Refill 06/04/2025 Anticoagulation Visit [place] [address] [place] [address] [phone] Samaria Parker RN Atrial fibrillation, unspecified type (HCC) (Primary Dx) 05/25/2025 Anticoagulation Visit [place] [address] [place] [address] [phone] Shira Rees RN Atrial fibrillation, unspecified type (HCC) (Primary Dx) 05/23/2025 11:00 AM CDT Office Visit [facility] Cardiology [address] [place] [address] Rajesh Mack MD Coronary artery disease involving [place] coronary artery of [place] heart without angina pectoris (Primary Dx); Status post angioplasty with stent; Paroxysmal atrial fibrillation (HCC); Chronic anticoagulation; Status post endovascular aneurysm repair (EVAR); Tobacco abuse, 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 Telephone [facility] Cardiology [address] [facility] [address] [place] [address] Rajesh Mack MD warfarin script 05/15/2025 Anticoagulation Visit [facility] Cardiology [address] [facility] [address] [place] [phone] Samaria Parker RN Atrial fibrillation, unspecified type (HCC) (Primary Dx) 05/10/2025 Results Follow-Up [facility] Medicine Surgery [address] [facility] Floor 1 [place] [address] Lawson Orozco CMA CTA Abdomen Pelvis 05/07/2025 9:15 AM CDT Office Visit [facility] Surgery [address] [facility] 8th [place] [address] [place] [address] Renetta Mijares MD PhD Encntr for surgical aftcr following surgery on the circ sys (Primary Dx); Ruptured infrarenal abdominal aortic aneurysm (AAA) (HCC); Acute respiratory failure with hypoxia (HCC) 05/07/2025 7:53 AM CDT - 05/07/2025 11:59 PM CDT Hospital Encounter [facility] [address] [place] [address] Renetta Mijares MD PhD Encntr for surgical aftcr following surgery on the circ sys; Ruptured infrarenal abdominal aortic aneurysm (AAA) (HCC) Discharge Disposition: Discharge to home or self care 04/30/2025 Anticoagulation Visit [facility] Cardiology [address] [facility] [address], [place] [address] Shira Rees RN Atrial fibrillation, unspecified type (HCC) (Primary Dx) 04/19/2025 Anticoagulation Visit [facility] Cardiology at [address] [place] [address] Shira Rees RN Atrial fibrillation, unspecified type (HCC) (Primary Dx) 04/13/2025 Anticoagulation Visit [facility] Cardiology [address] [place] [phone] Erma Saba RN Atrial fibrillation, unspecified type (HCC) (Primary Dx) 04/10/2025 Telephone [facility] Medicine Surgery [address] [facility] Floor 1 [place] [phone] Lawson Orozco CMA 04/10/2025 Telephone [facility] Medicine Vascular Surgery [address] [facility] [address] [place] [phone] Renetta Mijares MD PhD 04/10/2025 Anticoagulation Visit [facility] Cardiology at [address] [place] [address] Shira Rees RN Atrial fibrillation, unspecified type (HCC) (Primary Dx) 04/09/2025 Telephone [facility] Medicine Surgery [address] [facility] Floor 1 [place] [phone] Lawson Orozco CMA from Last 3 Months Surgical History Surgery Date Site/Laterality Comments CARDIAC STENT PLACEMENT NASAL POLYP EXCISION ABDOMINAL AORTIC ANEURYSM REPAIR CARDIAC CATHETERIZATION 07/24/2024 CARDIAC CATHETERIZATION 04/02/2025 N/A Procedure: PCI STELLA MAJOR CORONARY [id number] - [id number]; Surgeon: Ivan Gruber MD PhD; Location: [facility] CARDIAC LIMNOLOGIST; Service: Cardiovascular; Laterality: N/A; Medical devices from this surgery are in the Medical Devices section. ENDOVASCULAR REPAIR - AORTIC 04/03/2025 Abdomen/N/A Procedure: ENDOVASCULAR REPAIR - AORTIC iliac branch extension; Surgeon: Renetta Mijares MD PhD; Location: [facility] OR POD 3; Service: Vascular; Laterality: N/A; Medical devices from this surgery are in the Medical Devices section. Medical History Medical History Date Comments Hypertension Hyperlipidemia Acid indigestion CAD (coronary artery disease) Atrial fibrillation (HCC) Emphysema lung COPD (chronic obstructive pulmonary disease) DICKERSON (dyspnea on exertion) GERD (gastroesophageal reflux [...] making you feel afraid or unsafe? 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 NURSE Gender Identity Not on file Sexual Orientation Not on file Last Filed Vital Signs Vital Sign Reading Time Taken Comments Blood Pressure 112/58 05/23/2025 10:46 AM CDT Pulse 64 05/23/2025 10:46 AM CDT Temperature 36.8 C (98.2 F) 04/04/2025 11:01 AM CDT Respiratory Rate 16 04/04/2025 1:07 PM CDT Oxygen Saturation 97% 05/23/2025 10:46 AM CDT Inhaled Oxygen Concentration - - Weight 74.8 kg (165 lb) 05/23/2025 10:46 AM CDT Height 180.3 cm (5' 11) 05/23/2025 10:46 AM CDT Body Mass Index 23.01 05/23/2025 10:46 AM CDT Plan of Treatment Health Maintenance Due Date Last Done Comments Colon Cancer Screening-Colonoscopy 1950 Depression Screening 1950 Hepatitis C Screening 1950 DTaP/Tdap/Td Vaccine (1 - Tdap) 1960 Hepatitis B Screening 1967 Pneumococcal vaccine 65+ (1 of 2 - PCV) 1968 Lung Cancer Screening 1999 Zoster Vaccine (1 of 2) 1999 Well Visit 65+ 2014 Influenza Vaccine (#1) 2025 Fall Risk Assessment 04/04/2026 04/04/2025 Abdominal Aortic Aneurysm (A AA) Screen Completed 05/07/2025, 05/07/2025, 05/07/2025, Additional history exists Medical Devices Implanted Type Area Dried Fruit Washer Device Identifier Shelf Expiration Date Model / Serial / Lot Stent Stent Heart Medtronic Card Vas Surgery 3.5 X 38mm Nehemiah Peoria Rx Coronary Stent [id number] - [id number] Implanted:Qty : 1 on 04/02/2025 by Ivan Gruber MD PhD at [facility] Stent Left: Anterior Descending Cornary Artery Medtronic Card Vas Surgery 08/26/2027 [id number] / [id number] / [id number] Medtronic Inc Stent Graft Iliac Bifurcated [id number] Endurant Ii Polyester Nitinol [id number] - [id number] - [id number] Implanted:Qty : 1 on 04/03/2025 by Renetta Mijares MD PhD at [facility] Stent N/A: Aorta Medtronic Inc [id number] 09/19/2026 [id number] / [id number] / Anthony Vascular System Closure Repair Femoral Artery Suture Mediated Perclose Prostyle [id number] - [id number] Implanted:Qty : 3 on 04/03/2025 by Renetta Mijares MD PhD at [facility] Vascular Closure Device Left: Femoral Anthony Vascular [id number] 02/12/2027 [id number] / / [id number] Description:X3 used same lot number Procedures Procedure Name Priority Date/Time Associated Diagnosis Comments PROTIME-INR Routine 06/27/2025 10:56 AM STAFF NURSE Chronic anticoagulation PROTIME-INR Routine 06/15/2025 9:56 AM CDT Chronic anticoagulation PROTIME-INR Routine 06/04/2025 9:28 AM CDT Chronic anticoagulation PROTIME-INR Routine 05/25/2025 10:17 AM CDT Chronic anticoagulation POCT LIPID PANEL Routine 05/23/2025 10:3 7 AM CDT Coronary artery disease involving [place] coronary artery of [place] heart without angina pectoris PROTIME-INR Routine 05/14/2025 12:24 PM CDT Chronic anticoagulation CTA ABDOMEN PELVIS W WO CONTRAST Schedule Routine, Read Routine (OP Routine) 05/07/2025 8:47 AM CDT Encntr for surgical aftcr following surgery on the circ sys Ruptured infrarenal abdominal aortic aneurysm (AAA) (HCC) PROTIME-INR Routine 04/30/2025 10:38 AM CDT Chronic anticoagulation PROTIME-INR Routine 04/19/2025 10:35 AM CDT Chronic anticoagulation PROTIME-INR Routine 04/12/2025 10:11 AM CDT Chronic anticoagulation from Last 3 Months Results * (ABNORMAL) Protime-INR (06/27/2025 10:56 AM STAFF NURSE) INR 1.8(H) [facility] Comment: Reference Range 0.9-1.1 Moderate-intensity Warfarin Therapy 2.0-3.0 Higher-intensity Warfarin Therapy 3.0-4.0 PT 18.8(H) 9.0 - 11.5 sec [facility] Comment: For additional information, please refer to http://[employer].Cadent/faq/GWM240 (This link is being provided for informational/ educational purposes only.) Blood 06/27/2025 10:5 6 AM STAFF NURSE 06/27/2025 10:56 AM STAFF NURSE Result Alejandra Mack MD LAB BLOOD ORDERABLES Final Resul t Performing Organization Address [facility] de Phone Number [facility] [address] [place] [address] * (ABNORMAL) Protime-INR (06/15/2025 9:56 AM CDT) INR 2.3(H) [facility] Comment: Reference Range 0.9-1.1 Moderate-intensity Warfarin Therapy 2.0-3.0 Higher-intensity Warfarin Therapy 3.0-4.0 PT 23.2(H) 9.0 - 11.5 sec [facility] Comment: For additional information, please refer to http://[employer]/faq/XSO439 (This link is being provided for informational/ educational purposes only.) Blood 06/15/2025 9:56 AM CDT 06/15/2025 9:56 AM CDT Result Alejandra Mack MD LAB BLOOD ORDERABLES Final Resul t Performing Organization Address [facility] Co de Phone Number [facility] [address] [place] [address] * (ABNORMAL) Protime-INR (06/04/2025 9:28 AM CDT) INR 1.5(H) [facility] Comment: Reference Range 0.9-1.1 Moderate-intensity Warfarin Therapy 2.0-3.0 Higher-intensity Warfarin Therapy 3.0-4.0 PT 15.6(H) 9.0 - 11.5 sec [facility] Comment: For additional information, please refer to http://[employer]/faq/NSW217 (This link is being provided for informational/ educational purposes only.) Blood 06/04/2025 9:28 AM CDT 06/04/2025 9:28 AM CDT us Rajesh Mack MD LAB BLOOD ORDERABLES Final Resul t Performing Organization Address [facility] de Phone Number [facility] [address] [place] [address] * (ABNORMAL) Protime-INR (05/25/2025 10:17 AM CDT) INR 1.3(H) [facility] Comment: Reference Range 0.9-1.1 Moderate-intensity Warfarin Therapy 2.0-3.0 Higher-intensity Warfarin Therapy 3.0-4.0 PT 13.8(H) 9.0 - 11.5 sec [facility] Comment: For additional information, please refer to http://[employer]/faq/NEE581 (This link is being provided for informational/ educational purposes only.) Blood 05/25/2025 10:1 7 AM CDT 05/25/2025 10:17 AM CDT us Rajesh Mack MD LAB BLOOD ORDERABLES Final Resul t Performing Organization Address [facility] de Phone Number [facility] [address] [place] [address] * POCT lipid panel (05/23/2025 10:37 AM CDT) Cholesterol, POC 105 <200 MG/DL HDL, POC 42 >=40 mg/dL Triglycerides, POC 44 <=149 mg/dL LDL Cholesterol POC 54.2 <=129 mg/dL Non-HDL Cholesterol, POC 63 NONE mg/dL Cholesterol Total, POC 105 30 - 199 mg/dL Capillary blood 05/23/2025 1 0:37 AM CDT us Rajesh Mack MD POINT OF CARE TEST ORDERABLES Fi nal Result * (ABNORMAL) Protime-INR (05/14/2025 12:24 PM CDT) INR 1.4(H) [facility] Comment: Reference Range 0.9-1.1 Moderate-intensity Warfarin Therapy 2.0-3.0 Higher-intensity Warfarin Therapy 3.0-4.0 PT 14.3(H) 9.0 - 11.5 sec [facility] Comment: For additional information, please refer to http://education.[employer]/faq/HSZ659 (This link is being provided for informational/ educational purposes only.) Blood 05/14/2025 12:2 4 PM CDT 05/14/2025 12:24 PM CDT us Rajesh Mack MD LAB BLOOD ORDERABLES Final Resul [facility] Organization Address City/State/ZIP Co de Phone Number [facility] [address] [place] [address] * CTA Abdomen Pelvis (05/07/2025 8:47 AM CDT) Anatomical Region Laterality Modality Body N/A Computed Tomogra phy 05/07/2025 11:2 5 AM CDT Impressions 05/07/2025 12:51 PM CDT IMPRESSION: 1. Interval repair of type IB endoleak arising from the right common iliac stent. No evidence of persistent endoleak. 2. 78 mm x 68 mm infrarenal abdominal aortic aneurysm with stent graft in place. There has been no interval change in the size of the aneurysm since the prior examination. 2. AAA volume: 265 cc. This is stable since the prior exam. Dictated by: Svetlana Chowdhury MD The radiology attending physician has personally reviewed this study, and had reviewed and/or edited this written report and agrees with it. Electronically signed by: Poncho Mahan M.D. Narrative 05/07/2025 12:51 PM CDT EXAMINATION: CT ANGIOGRAPHY OF THE ABDOMEN AND PELVIS WITH AND WITHOUT CONTRAST HISTORY: Type Ib endoleak status post repair TECHNIQUE: CT angiography of the abdomen and pelvis was performed prior to and following the intravenous administration of 90 ml Optiray-350 using the post-endoluminal stent graft protocol. Vascular 3D images were generated on a dedicated workstation and also reviewed. COMPARISON: 03/28/2025 FINDINGS: VASCULAR FINDINGS: There is an infrarenal abdominal aortic aneurysm with an rjcsh-yf-yaiqr stent graft in place. The proximal attachment site is just the proximal to the renal arteries, and the distal attachment sites are in the distal common iliac arteries bilaterally. Interval repair of type Ib endoleak arising from the right common iliac artery. No evidence of persistent endoleak. Moderate to severe stenosis is noted at the origin of the celiac. The superior mesenteric artery is widely patent. Conclusion of the inferior mesenteric artery with distal reconstitution. The renal arteries are patent. No visceral stents are present. AAA volume (lowest renal artery to aortic bifurcation): 265 cc. This is stable compared to prior exam. The maximum diameter of the aneurysm is 78 mm AP x 68 mm [id number]. This is stable since the prior exam. The maximum diameter of the graft is 35 mm AP x 30 mm [id number]. This is stable since the prior exam. NON-VASCULAR FINDINGS: Emphysematous changes within the lung bases. Imaged heart is enlarged without pericardial effusion. Hepatic cyst. No suspicious liver lesions or biliary ductal dilatation. Small ill-defined areas of peripheral arterial hyperenhancement for reference seen on series 8 image 172 and on series 8 image 76 may represent hemangiomas or transient hepatic perfusion differences. No biliary dilatation. Replaced left hepatic artery arising from the left gastric. The portal veins and superior mesenteric vein are patent. The cholelithiasis without evidence of acute cholecystitis. Adrenal glands, spleen, and pancreas are normal. The stomach and duodenum are normal. The kidneys enhance symmetrically without hydronephrosis. Multiple bilateral renal cysts, some of which are hemorrhagic. Bladder diverticulum arising from the posterior urinary bladder at the vesicoureteral junction with bladder wall thickening, likely secondary to chronic bladder outlet obstruction. The prostate gland is enlarged. The bowel is normal in caliber without evidence of obstruction. Extensive colonic diverticulosis without evidence of acute diverticulitis. The appendix is normal. No suspicious abdominal or pelvic adenopathy. No pneumoperitoneum. No free fluid within the abdomen or pelvis. Small fat-containing umbilical hernia. No suspicious osseous lesions. Procedure Note Poncho Mahan MD - 05/07/2025 EXAMINATION: CT ANGIOGRAPHY OF THE ABDOMEN AND PELVIS WITH AND WITHOUT CONTRAST HISTORY: Type Ib endoleak status post repair TECHNIQUE: CT angiography of the abdomen and pelvis was performed prior to and following the intravenous administration of 90 ml Optiray-350 using the post-endoluminal stent graft protocol. Vascular 3D images were generated on a dedicated workstation and also reviewed. COMPARISON: 03/28/2025 FINDINGS: VASCULAR FINDINGS: There is an infrarenal abdominal aortic aneurysm with an ijghl-aq-kviyf stent graft in place. The proximal attachment site is just the proximal to the renal arteries, and the distal attachment sites are in the distal common iliac arteries bilaterally. Interval repair of type Ib endoleak arising from the right common iliac artery. No evidence of persistent endoleak. Moderate to severe stenosis is noted at the origin of the celiac. The superior mesenteric artery is widely patent. Conclusion of the inferior mesenteric artery with distal reconstitution. The renal arteries are patent. No visceral stents are present. AAA volume (lowest renal artery to aortic bifurcation): 265 cc. This is stable compared to prior exam. The maximum diameter of the aneurysm is 78 mm AP x 68 mm [id number]. This is stable since the prior exam. The maximum diameter of the graft is 35 mm AP x 30 mm [id number]. This is stable since the prior exam. NON-VASCULAR FINDINGS: Emphysematous changes within the lung bases. Imaged heart is enlarged without pericardial effusion. Hepatic cyst. No suspicious liver lesions or biliary ductal dilatation. Small ill-defined areas of peripheral arterial hyperenhancement for reference seen on series 8 image 172 and on series 8 image 76 may represent hemangiomas or transient hepatic perfusion differences. No biliary dilatation. Replaced left hepatic artery arising from the left gastric. The portal veins and superior mesenteric vein are patent. The cholelithiasis without evidence of acute cholecystitis. Adrenal glands, spleen, and pancreas are normal. The stomach and duodenum are normal. The kidneys enhance symmetrically without hydronephrosis. Multiple bilateral renal cysts, some of which are hemorrhagic. Bladder diverticulum arising from the posterior urinary bladder at the vesicoureteral junction with bladder wall thickening, likely secondary to chronic bladder outlet obstruction. The prostate gland is enlarged. The bowel is normal in caliber without evidence of obstruction. Extensive colonic diverticulosis without evidence of acute diverticulitis. The appendix is normal. No suspicious abdominal or pelvic adenopathy. No pneumoperitoneum. No free fluid within the abdomen or pelvis. Small fat-containing umbilical hernia. No suspicious osseous lesions. IMPRESSION: IMPRESSION: 1. Interval repair of type IB endoleak arising from the right common iliac stent. No evidence of persistent endoleak. 2. 78 mm x 68 mm infrarenal abdominal aortic aneurysm with stent graft in place. There has been no interval change in the size of the aneurysm since the prior examination. 2. AAA volume: 265 cc. This is stable since the prior exam. Dictated by: Svetlana Chowdhury MD The radiology attending physician has personally reviewed this study, and had reviewed and/or edited this written report and agrees with it. Electronically signed by: Poncho Mahan M.D. Renetta Mijares MD PhD IMG CT PROCEDURES Lorraine l Result * (ABNORMAL) Protime-INR (04/30/2025 10:38 AM CDT) INR 1.5(H) [facility]-Marc Vincent Comment: Reference Range 0.9-1.1 Moderate-intensity Warfarin Therapy 2.0-3.0 Higher-intensity Warfarin Therapy 3.0-4.0 PT 15.9(H) 9.0 - 11.5 sec [facility]Marc Vincent Comment: For additional information, please refer to http://education.[employer]/faq/YBW217 (This link is being provided for informational/ educational purposes only.) Blood 04/30/2025 10:3 8 AM CDT 04/30/2025 10:39 AM CDT Rajesh Mack MD LAB BLOOD ORDERABLES Final Resul t Performing Organization Address [facility] de Phone Number [facility] [address] [place] [address] * (ABNORMAL) Protime-INR (04/19/2025 10:35 AM CDT) INR 1.5(H) [facility] [place] Comment: Reference Range 0.9-1.1 Moderate-intensity Warfarin Therapy 2.0-3.0 Higher-intensity Warfarin Therapy 3.0-4.0 PT 16.1(H) 9.0 - 11.5 sec [facility] Comment: For additional information, please refer to http://[employer]/faq/XRY618 (This link is being provided for informational/ educational purposes only.) Blood 04/19/2025 10:3 5 AM CDT 04/19/2025 10:35 AM CDT Result [facility] Rajesh Mack MD LAB BLOOD ORDERABLES Final Resul t Performing Organization Address [facility] de Phone Number [facility] [address] [place] [address] * (ABNORMAL) Protime-INR (04/12/2025 10:11 AM CDT) INR 1.2(H) [facility] [place] Comment: Reference Range 0.9-1.1 Moderate-intensity Warfarin Therapy 2.0-3.0 Higher-intensity Warfarin Therapy 3.0-4.0 PT 12.7(H) 9.0 - 11.5 sec [facility] [place] Comment: For additional information, please refer to http://[employer]/faq/ILC771 (This link is being provided for informational/ educational purposes only.) Blood 04/12/2025 10:1 1 AM CDT 04/12/2025 10:11 AM CDT Rajesh Mack MD LAB BLOOD ORDERABLES Final Resul t [facility] [address] [place] [address] from Last 3 Months Insurance MEDICARE [facility] MEDICARE [facility] MEDICARE [facility] Advance Directives For more information, please contact: [phone] Documents on File Type Date Recorded 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
--- OUTSIDE RECORDS SUMMARY | 2025-07-09 15:19 | XMS_ITS | Encounter Summary ---
Author Organization [facility] Healthcare Address [address] [place] [address] Care Team Providers Care Finisher Fine Diamond Dies Name Role Phone Erma Avila MD Primary Care Provider [phone] Renetta Mijares MD PhD Unavailable [phone] Encounter Details Date Type Department Care Team (Late st Contact Info) Description 03/30/[address] 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 Question Answer Date of Assessment Author Have you ever felt the need to Cut down on your drinking? 0 03/31/2025 6:00 PM Khadijah Espinosa RN Have people ever Annoyed yo u by criticizing your drinking? 0 03/31/2025 6:00 PM LEXIT Ashley Hopper RN Have you ever felt bad or Guilty about your drinking? 0 03/31/2025 6:00 PM LEXIT Nika Hopper RN Have you ever had a drink fi rst thing in the morning to steady your nerves or get rid of a hangover? Eye noodle maker? 0 03/31/2025 6:00 PM LEXIT Xavi Hopper RN CAGE SCORE: 2 or Greater = Positive 0 03/31/2025 6:00 PM Nika Espinosa RN * Difference in Last Two Luis Scores Answer Date of Assessment Author 0 04/02/2025 7:50 PM Eze Mariee RN * Bruno Fall Risk Question Answer Date of Assessment Author History of Falling 0 04/02/2025 7:50 PM Chiquis Mariee RN Secondary Diagnosis 15 04/02/2025 7:50 PM Chiquis Christopher RN Ambulatory Aids 0 04/02/2025 7:50 PM CDT Chiquis Arellano RN Intravenous Therapy/Heparin/Saline Lock 20 04/02/2025 7:50 PM Eze Mariee RN Gait/Transferring 0 04/02/2025 7:50 PM Chiquis Mariee RN Mental Status 0 04/02/2025 7:50 PM Chiquis Henry RN Bruno Fall Risk Score (Score >= 45 places fall precaution order) 35 04/02/2025 7:50 PM Chiquis Mariee RN Prior Fall Event (Autopopulated from EMR) None found 04/02/2025 7:50 PM Alex Mariee RN * Luis Scale Question Answer Date of Assessment Author Sensory Perceptions 3 04/02/2025 7:50 PM Chiquis Christopher RN Moisture 4 04/02/2025 7:50 PM Chiquis Leonard RN Activity 3 04/02/2025 7:50 PM Chiquis Leonard RN Mobility 3 04/02/2025 7:50 PM Chiquis Leonard RN Nutrition 3 04/02/2025 7:50 PM Chiquis Leonard RN Friction and Shear 3 04/02/2025 7:50 PM Chiquis Mariee RN Luis Scale Score 19 04/02/2025 7:50 PM Chiquis Mariee RN * Question Answer Date of Assessment Author BP Location Left arm 04/02/2025 11:57 PM Loboetri BP Method Automatic 04/02/2025 11:57 PM CDT Villanuevaetri MAP (mmHg) 85 04/02/2025 11:57 PM CDT Villanuevaetri * Fall Risk Interventions Question Answer Date of Assessment Author All Low Fall Interventions Applied Yes 04/02/2025 7:50 PM Chiquis Mariee RN All Moderate Fall Interventions Applied Yes 04/02/2025 7:50 PM Chiquis Mariee RN All Moderate Fall Risk Interventions EXCEPT: Remain with patient while toileting 04/01/2025 8:38 PM Allison Shields RN All High Fall Risk Interventions Applied No 04/02/2025 7:50 PM Chiquis Mariee RN All High Risk Interventions EXCEPT: Bed alarm;Chair alarm 04/02/2025 7:50 PM Chiquis Mariee RN Additional Interventions Applied Over-bed table on non-exit side 04/02/2025 7:50 PM Chiquis Mariee RN Reason For Exception(s) BMAT green 04/01/20 8:38 PM Allison Shields RN Reason For Exception(s) BMAT green 04/02/20 7:50 PM Chiquis Mariee RN * B.M.A.T. - Bedside Mobility Assessment Tool for Nurses Question Answer Date of Assessment Author Is patient able to participate in the BMAT? Yes 04/02/2025 7:48 AM LEXIT Ana Cristina Giordano RN BMAT Level Level 4 - Green 04/02/2025 7:48 AM LEXIT Pooja Long RN * Question Answer Date of Assessment Author 1. Has the patient self-reported, presented with clinical signs of, or have a documented history of any of the following within the past 30 days? No 03/30/2025 10:26 PM Lawrence Parisi RN * Question Answer Date of Assessment Author Is the patient being treated today because it is known or suspected that they prepared, started, or tried to end their life? No 03/30/2025 10:26 PM Lawrence Parisi RN * Question Answer Date of Assessment Author 1. In the past month, have you wished you were or that you could go to sleep and not wake up? No 03/30/2025 10:26 PM Lawrence Parisi RN 2. In the past month, have you actually had any thoughts of killing yourself? No 03/30/2025 10:26 PM Lawrence Parisi RN 6. Have you ever done anything, started to do anything, or prepared to do anything to end your life? No 03/30/2025 10:26 PM Justin Parisi RN * Suicide Risk Level Answer Date of Assessment Author No risk level 03/30/2025 10:26 PM Darby Parisi RN * Self-Injurious Risk Level Answer Date of Assessment Author No risk level 03/30/2025 10:26 PM Darby Parisi RN * Pressure Injury Prevention Question Answer Date of Assessment Author Pressure Ulcer Prevention Interventions Keep skin clean and dry (Sensory Perception/Moistur e) 04/02/2025 7:50 PM Chiquis Mariee RN 2 Nurse Skin Assessment ARIAN Palumbo 04/02/2025 7:50 P M Chiquis Mariee RN * Transdermal Patch Assessment on Admission Answer Date of Assessment Author Not Present 03/30/2025 10:26 PM CDT Darby Beck RN * Integumentary Question Answer Date of Assessment Author Skin Color Appropriate for ethnicity 04/02/2025 7:50 PM Chiquis Mariee RN Skin Condition/Temp Warm;Dry 04/02/2025 7 :50 PM LEXIT Chiquis Brown RN Skin Integrity Puncture 04/02/2025 7:50 PM LEXIT Chiquis Brown RN Skin Turgor Non-tenting 04/02/2025 7:50 PM Chiquis Mariee RN Integumentary Additional Assessments Yes-Luis 04/02/2025 7:50 PM Chiquis Mariee RN Integumentary (WDL) X 04/02/2025 7 :50 PM Chiquis Mariee RN Skin Location right radial 04/02/2025 7:50 PM LEXIT Chiquis Brown RN * Question Answer Date of Assessment Author RLE Edema +1 04/02/2025 7:50 PM Chiquis Leonard RN LLE Edema +1 04/02/2025 7:50 PM LEXIT Chiquis Cook RN Edema Right lower extremit y;Left lower extremity 04/02/2025 7:50 PM Chiquis Mariee RN * Question Answer Date of Assessment Author Percent Meal Eaten (%) 100 03/31/2025 12:30 P M Nika Espinosa, ARIAN Feeding Level of Assistance Able to feed self 03/31/2025 12:30 PM Nika Espinosa RN Appetite Good 03/31/2025 12:30 PM LEXIT Nika Lynn RN * Question Answer Date of Assessment Author BP Location Left arm 04/02/2025 11:57 PM CDT Van Bloom BP Method Automatic 04/02/2025 11:57 PM CDT [place] * Fall Risk Interventions Question Answer Date of Assessment Author All Low Fall Interventions Applied Yes 04/02/2025 7:50 PM Chiquis Mariee RN All Moderate Fall Interventions Applied Yes 04/02/2025 7:50 PM Chiquis Mariee RN All Moderate Fall Risk Interventions EXCEPT: Remain with patient while toileting 04/01/2025 8:38 PM LEXIT Allison Leach RN All High Fall Risk Interventions Applied No 04/02/2025 7:50 PM Chiquis Mariee RN All High Risk Interventions EXCEPT: Bed alarm;Chair alarm 04/02/2025 7:50 PM Chiquis Mariee RN Additional Interventions Applied Over-bed table on non-exit side 04/02/2025 7:50 PM Chiquis Mariee RN Reason For Exception(s) BMAT green 04/01/20 8:38 PM Allison Shields RN Reason For Exception(s) BMAT green 04/02/20 7:50 PM Chiquis Mariee RN * ADL Screening Question Answer Date of Assessment Author Patient's Vision Adequate to Safely Complete Daily Activities Yes 03/30/2025 10:26 PM CDT Lawrence Beck RN Patient's Judgement Adequate to Safely Complete Daily Activities Yes 03/30/2025 10:26 PM CDT Lawrence Beck RN Patient's Memory Adequate to Safely Complete Daily Activities Yes 03/30/2025 10:26 PM LEXIT Lawrence Beck RN Patient Able to Express Needs/Desires Yes 03/30/2025 10:26 PM Lawrence Parisi RN Dressing Independent 03/30/2025 10:26 PM Lawrence Pedro RN Grooming Independent 03/30/2025 10:26 PM Lawrence Pedro RN Feeding Independent 03/30/2025 10:26 PM Lawrence Pedro RN Bathing Independent 03/30/2025 10:26 PM Lawrence Pedro RN Toileting Independent 03/30/2025 10:26 PM Lawrence Pedro RN In/Out Bed Independent 03/30/2025 10:26 PM Lawrence Pedro RN Walks in Home Independent 03/30/2025 10:26 PM LEXIT Lawrence Pabon RN Weakness of Legs None 03/30/2025 10:26 PM CDT Lawrence Beck RN Weakness of Arms/Hands None 03/30/2025 10:26 P M Lawrence Parisi RN Hearing - Right Ear Functional 03/30/2025 10:26 PM C DT Lawrence Beck RN Hearing - Left Ear Functional 03/30/2025 10:26 PM CD T Lawrence Beck RN Dominant hand? Right 03/30/2025 10:26 PM CDT Lawrence Fuller RN Decline in ADLs in last 2 weeks? No 03/30/2025 10:26 PM CDT Lawrence Beck RN * Therapy Consults Question Answer Date of Assessment Author PT Evaluation Needed 2 03/30/2025 10:26 PM Lawrence Parisi RN OT Evaluation Needed 2 03/30/2025 10:26 PM Lawrence Parisi RN GEOSCIENCE PROFESSOR Evaluation Needed 2 03/30/2025 10:26 PM Lawrence Parisi RN * Assistive Devices Question Answer Date of Assessment Author Assistive Devices/DME Eyeglasses;Denture s upper 03/30/2025 10:26 PM Lawrence Parisi RN * Speech/Swallow Screening Question Answer Date of Assessment Author Currently, does patient have difficulty swallowing; coughing/choking while swallowing, or feels like food is sticking No 03/30/2025 10:26 PM Lawrence Parisi RN In the past two weeks has the patient had changes in speaking or ability to comprehend conversation No 03/30/2025 10:26 PM Lawrence Parisi RN Currently, does patient require thickened liquids or dysphagia diet No 03/30/2025 10:26 PM Lawrence Parisi RN Patient is in need of GEOSCIENCE PROFESSOR Order: No GEOSCIENCE PROFESSOR order needed from this assessment 03/30/2025 10:26 PM Lawrence Parisi RN * Hygiene Question Answer Date of Assessment Author Hygiene Back rub 04/01/2025 4:05 PM CDT Leigh Ann Henderson Hygiene Level of Assistance Independent 04/02/2025 7:50 PM Chiquis Mariee RN Reason not bathed/showered Bath not due on this shift 04/02/2025 7:50 PM Chiquis Mariee RN Perineal Care Day Care 04/02/2025 7:50 PM Chiquis Mariee RN Bath Not bathed/showered 04/02/2025 7 :50 PM Chiquis Mariee RN documented as of this encounter Mental Status * Question Answer Entry Date Author Level of Consciousness Alert;Awake 11:30 PM Chiquis Mariee RN Orientation Oriented X4 (person, place, time, situation) 04/02/2025 11:30 PM Chiquis Mariee RN * Question Answer Entry Date Author Neuro (WDL) X 04/02/2025 7:50 PM Chiquis Leonard RN documented in this encounter Plan of Treatment Not on file documented as of this encounter Visit Diagnoses Not on filedocumented in this encounter Care Teams Finisher Fine Diamond Dies Relationship Specialty Start Date End Date Erma Avila MD PCP - General 02/19/21 Renetta Mijares MD PhD [id number] [place] [address] Consulting Physician Vascular Surgery 04/04/25 documented as of this encounter
[2025-07-09 16:19] LABS: Add Urine Microscopic? YES; Appearance Urine Clear (Clear); Glucose Urine UA Negative (Negative); Leukocyte Esterase Ur Negative LEU/UL (Negative); Nitrate Urine Negative (Negative); Specific Grav Ur 1.026 (1.001-1.035)
--- NOTE | 2025-07-09 16:21 | ECG_ITS ---
Test Date: 2025-07-09 16:29:09 Measurements Intervals [place] Rate: 86 P: 0 MS: 0 QRS: 18 QRSD: 110 T: -23 QT: 385 QTc: 461 Interpretive Statements ATRIAL FIBRILLATION WITH ABERRANT CONDUCTION OR VENTRICULAR PREMATURE COMPLEXES INCOMPLETE RIGHT BUNDLE BRANCH BLOCK INFERIOR MYOCARDIAL INFARCTION , PROBABLY OLD Electronically Signed On 07-10-2025 05:51:16 EEG TECHNOLOGIST by Rajesh Mack D.O
[2025-07-09 16:45] LABS: Troponin I 0.016 ng/mL (0.000-0.034)
[2025-07-09] MEDS: IPRATROPIUM 0.5 MG/ALBUTEROL SULFATE 2.5 MG (BASE) AMPUL.NEB 3 ML INHALATION ×2 (17:22→21:58)
--- NOTE | 2025-07-09 19:09 | ECG_ITS ---
Test Date: 2025-07-09 19:17:53 Measurements Intervals [place] Rate: 81 P: 0 AK: 0 QRS: 69 QRSD: 119 T: 27 QT: 393 QTc: 457 Interpretive Statements ATRIAL FIBRILLATION WITH ABERRANT CONDUCTION OR VENTRICULAR PREMATURE COMPLEXES INCOMPLETE RIGHT BUNDLE BRANCH BLOCK INFERIOR MYOCARDIAL INFARCTION , PROBABLY OLD Electronically Signed On 07-10-2025 05:53:21 SPECIAL EDUCATION KINDERGARTEN TEACHER by Rajesh Mack D.O
[2025-07-09 19:36] LABS: Troponin I 0.013 ng/mL (0.000-0.034)
[2025-07-09] MEDS: ACETAMINOPHEN 325 MG TABLET 650 MG PO (20:08)
--- NOTE | 2025-07-09 20:11 | WPCEDHO ---
ED Hand Off Checklist All vitals saved: YES IV Site documented: YES All med administrations documented: YES Triage Note Triage Note pt to ED from [facility] via 07/09/25 12:51 [facility] for c/o sudden onset of L flank pain. pt reports the pain radiates from his flank up his back. EMS reports pt was diaphoretic and conley upon arrival . EMS gave 100mcg of fentanyl for 10/10 pain. EMS got a BG of 114. HX afib (takes warfarin), cardiac stent placed, AAA, had surgery in March to repair it. pt is A&OX4 Allergies No Known Allergies Allergy (Unknown, Verified 07/09/25 13:03) Family History (Last Reviewed 06/25/25 @ 10:52 by Maria Del Rosario Yu [facility]) Father Heart disease Hypertension Alcoholism Mother Heart disease Depression Anxiety Sibling Alcoholism Heart disease Active Medications including assessments/comments Acetaminophen (Acetaminophen 325 Mg Tablet) 650 mg PO Q4H PRN PRN Reason: Mild Pain (1-3) or Fever Last Admin: 07/09/25 20:08 Dose: 650 mg Documented By: LACHELLE HAWK Pain Assessment Document 07/09/25 20:08 LACHELLE (Rec: 07/09/25 20:08 LACHELLE [id number]) Pain Evaluation Pain Evaluation Assessment Pain Scale Pain Scale Used Numeric (1 - 10) Self Report Pain Assessment Reported Pain Level 9 Pain Score Pain Score 9: Self Report Morphine Sulfate (Morphine Sulfate (*Crx) 4 Mg/Ml Inj) 2 mg IV PUSH Q2H PRN PRN Reason: Pain Rated 7-10 Last Admin: 07/09/25 19:14 Dose: 2 mg Documented By: IGNACIO [facility] Pain Assessment Document 07/09/25 19:14 IGNACIO (Rec: 07/09/25 19:14 IGNACIO [id number]) Pain Evaluation Pain Evaluation Assessment Pain Scale Pain Scale Used Numeric (1 - 10) Order Parameters Order Parameters for Pain Level 7-10 (Severe) Administering this Pain Med Self Report Pain Assessment Reported Pain Level 10 Pain Score Pain Score 10: Self Report Re-Assess: KENN Pain/Fever Reassessment Document 07/09/25 20:08 LACHELLE (Rec: 07/09/25 20:08 LACHELLE [id number]) Reason for Administratin Reason for Pain Administration Pain Scale Pain Scale Used Numeric (1 - 10) Self Report Pain Assessment Reported Pain Level 9 Pain Score Pain Score 9: Self Report Ondansetron HCl (Ondansetron Inj 4 Mg/2 Ml Vial) 4 mg IV PUSH Q4H PRN PRN Reason: Nausea Last Admin: 07/09/25 19:13 Dose: 4 mg Documented By: IGNACIO Administered/Completed Medications Discontinued Medications Albuterol/Ipratropium (Ipratropium 0.5 Mg/Albuterol Sulfate 2.5 Mg (Base) Ampul.Neb 3 Ml) 3 ml INHALATION ONCE STA Stop: 07/09/25 17:10 Last Admin: 07/09/25 17:22 Dose: 3 ml Documented By: ELIOT Ketorolac Tromethamine (Ketorolac 15 Mg/Ml Vial (*Bkc)) 15 mg IV PUSH ONCE ONE Stop: 07/09/25 13:23 Last Admin: 07/09/25 13:37 Dose: 15 mg Documented By: IGNACIO Ketorolac Tromethamine (Ketorolac 15 Mg/Ml Vial (*Bkc)) Confirm Administered Dose 15 mg .ROUTE .STK-MED ONE Stop: 07/09/25 13:39 Last Admin: 07/09/25 13:51 Dose: Not Given Documented By: IGNACIO Non-Admin Reason: See Notes Methylprednisolone Sodium Succinate (Methylprednisolone Sod Succ 125 Mg Vial) 125 mg IV PUSH ONCE STA Stop: 07/09/25 17:59 Last Admin: 07/09/25 18:08 Dose: 125 mg Documented By: IGNACIO Morphine Sulfate (Morphine Sulfate (*Crx) 4 Mg/Ml Inj) 2 mg IV PUSH ONCE ONE Stop: 07/09/25 14:36 Last Admin: 07/09/25 14:39 Dose: 2 mg Documented By: IGNACIO Ondansetron HCl (Ondansetron Inj 4 Mg/2 Ml Vial) 4 mg IV PUSH ONCE STA Stop: 07/09/25 13:00 Last Admin: 07/09/25 13:07 Dose: 4 mg Documented By: IGNACIO Notes 07/09/25 13:57 Nurse Note by Cindy Infante Toradol was dropped on the floor, overrode another dose in Pyxis. only 1 dose was given Initialized on 07/09/25 13:57 - END OF NOTE Interventions/Assessments Cardiac Monitoring Start: 07/09/25 12:50 Freq: Status: Active Protocol: Document 07/09/25 18:12 KNW (Rec: 07/09/25 18:12 KNW [id number]) Sleeve Fixer Assessment Sleeve Fixer Yes Applied Pulse Rate (60-100) 84 EKG Rythm Atrial Fibrillation IV / Saline Lock, Insert Start: 07/09/25 12:50 Freq: Status: Active Protocol: Document 07/09/25 13:04 KNW (Rec: 07/09/25 13:04 KNW [id number]) IV Assessment Peripheral Access Right Wrist IV Catheter Access Initiated Before Arrival Catheter Gauge 18 IV Site Assessment WNL IV Care and WNL Maintenance PA: Musculoskeletal Assessment Start: 07/09/25 13:00 Freq: Status: Active Protocol: Document 07/09/25 13:04 KNW (Rec: 07/09/25 13:04 KNW [id number]) Musculoskeletal Assessment Left Back Musculoskeletal Muscle Pain Symptoms Limb Description Normal Range of Motion Full Range of Motion Last Vital Signs Temperature 97.6 F 07/09/25 12:51 Pulse Rate 88 07/09/25 19:15 Respiratory Rate 21 H 07/09/25 19:15 Pulse Oximetry 98 07/09/25 19:15 Blood Pressure 170/97 H 07/09/25 19:05 Blood Pressure Mean 118 07/09/25 19:05 Blood Pressure Position Sitting 07/09/25 12:51 Oxygen Delivery Nasal Cannula 07/09/25 14:33 Oxygen Flow Rate 2 07/09/25 14:33 Weight 71.4 kg 07/09/25 12:51 Last Result - Abnormals Only WBC 11.2 K/mm3 (4.5-10.0) H 07/09/25 14:24 RBC 4.23 M/mm3 (4.6-6.20) L 07/09/25 14:24 MCV 103.3 fl (80-100) H 07/09/25 14:24 MCH 35.0 pg (26-34) H 07/09/25 14:24 Neut % (Auto) 83.3 % (45.5-73.1) H 07/09/25 14:24 Lymph % (Auto) 9.4 % (18.3-44.2) L 07/09/25 14:24 Abs Immat Gran (auto) 0.04 K/mm3 (0.00-0.031) H 07/09/25 14:24 Absolute Neuts (auto) 9.3 K/mm3 (1.3-6.7) H 07/09/25 14:24 PT 25.4 Seconds (11.1-14.7) H 07/09/25 14:24 APTT 42.5 Seconds (22.3-36.8) H 07/09/25 14:24 Sodium 133 mmol/L (137-145) L 07/09/25 14:24 Potassium 3.2 mmol/L (3.4-5.0) L 07/09/25 14:24 Chloride 96 mmol/L (98-107) L 07/09/25 14:24 Glucose 118 mg/dL (65-110) H 07/09/25 14:24 NT-Pro-B Natriuret Pep 2890 pg/mL (19.9-100) H 07/09/25 14:24 Urine Protein 1+ mg/dL (Negative) H 07/09/25 16:04 Urine Ketones 1+ mg/dL (Negative) H 07/09/25 16:04 Urine RBC 21-50 /hpf (0-2) H 07/09/25 16:04 Most Recent Suicide Severity Rating Suicide Severity Rating NO RISK INDICATED 07/09/25 12:51
--- NOTE | 2025-07-09 20:35 | ADMGEN ---
This patient, Logan Infante, was admitted to [facility] Surg Room 314-02. Patient/family oriented to hospital policies and general routines including ID bracelet, bed and alarms, visiting hours, pain management, procedures, bathroom and other care routines, personal items, smoking policy, room service/diet, and visiting hours. Information on how to activate the Rapid Response Team has been discussed. Patient/Family are encouraged to report perceived risks to care and to ask questions if they do not understand what they are told or what they should do.
[2025-07-09] MEDS: HYDROcodone/acetaminophen (*CRX) 5-325 MG TABLET 1 TAB PO (22:33)
[2025-07-10] VITALS (13 sets, daily range): BP systolic 132–140; BP diastolic 76; PULSE 92–115; RESP 15–24; TEMP 36.6–36.8; O2SAT 85–96
[2025-07-10] MEDS: LIDOCAINE 5% PATCH 1 PATCH TRANSDERM ×2 (00:20→08:45)
[2025-07-10] MEDS: MORPHINE SULFATE (*CRX) 4 MG/ML INJ 2 MG IV PUSH (01:31)
[2025-07-10] MEDS: IPRATROPIUM 0.5 MG/ALBUTEROL SULFATE 2.5 MG (BASE) AMPUL.NEB 3 ML INHALATION ×3 (02:37→14:42)
--- NOTE | 2025-07-10 05:13 | PM.IMHP ---
H&P: HPI History of Present Illness Date/Time: 07/10/25 05:13 Chief Complaint: Left flank pain up into his back Narrative: 74-year-old with a past medical history of COPD with continued tobacco use, coronary artery disease, essential hypertension, abdominal aortic aneurysm with endovascular stent 2017 among other comorbidities who presented to the ER with left upper flank pain radiating up into his posterior ribcage. He reports that he was out shopping with his daughter when E suddenly began having severe left flank pain and the pain is extending from his left SI joint up into his lower left ribcage. It was associated with sudden onset of nausea. After a became nauseous he did also became diaphoretic. He reported that he had never experienced pain similar to this before and had never had an episode of diaphoresis like this previously. He denies any recent fevers or chills. He has been slightly more short of breath than baseline. He denies any increased cough or congestion. He is still smoking about half a pack of cigarettes per day but this is decreased from his prior smoking of up to 2 packs per day in the distant past. He usually uses nebulizer treatments twice a day. He has not had to increase the frequency of his nebulizer treatments. He denies any anterior chest pain. He does use Mucinex to help with sputum production. He denies any known injury to his back but on exam patient does have some muscle spasm. He states that it does feel like muscle pain and is worse when he tries to move around. It is worse with deep breathing. I happened to have a massage done with me and utilized to the patient's left lower paraspinal muscles with it significant improvement in his level of discomfort. He also stated that the heating pad that nursing staff had provided for him overnight really helped with his back pain. He reports that the pain is much more tolerable now. He states that he does use icy Hot on occasion at home. He denies any hematuria or history of kidney stones imaging did not demonstrate any kidney stones or acute urologic changes. He did have diverticulum noted to his bladder with bladder wall thickening. He denies a known history of BPH but does report weak urine stream and occasional difficulty starting urine stream. He has to get up a couple of times a night to urinate and will sometimes half to go back to the bathroom only tender 15 minutes after he thought he emptied his bladder to urinate further. He has never been on medications for his prostate. He has not had any hematuria or increased urinary frequency from baseline. He reports he has been having normal bowel movements Review of Systems Review of Systems: 12 systems were reviewed with pertinent positives and negatives per HPI. Except as documented in the HPI, all other systems were reviewed and are negative. [facility] Past Medical History Medical History (Updated 07/10/25 @ 09:08 by Kathie Villa DO) Thoracic compression fracture Paroxysmal atrial fibrillation Chronic anticoagulation Systolic heart failure However patient had normal EF on most recent echocardiogram in 2019 Hyperlipidemia Tobacco abuse Benign prostatic hyperplasia Hypertension Gastroesophageal reflux disease Coronary artery disease Chronic obstructive pulmonary disease Prediabetes Abdominal aortic aneurysm (2017) Anxiety Asthma Peripheral vascular disease Lung nodule Surgical History Surgical History (Updated 07/10/25 @ 05:48 by Kathie Villa DO) History of colonoscopy History of heart artery stent (2003) History of cardiac catheterization (2003) History of endovascular stent graft for abdominal aortic aneurysm History of tonsillectomy Family History Family History Father Heart disease Hypertension Alcoholism Mother Heart disease Depression Anxiety Sibling Alcoholism Heart disease Social History Social History (Updated 07/10/25 @ 08:57 by Kathie Villa DO) Social History: He is . 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 He is now retired and lives alone. He is independent in his activities of daily living. He has smoked as much as 2 packs of cigarettes per day in the distant past but has been down to 0.5 packs of cigarettes per day for the last several years. He denies any significant alcohol use or illicit substance use. Surrogate medical decision maker: sister Code status: Full code. Smoking packs per day: 0.5 Smoking cigarettes per day: 10.0 Years smoked: 60 Smoking pack-years: 30.00 Smoking status: Current every day smoker Second hand tobacco smoke exposure: Yes Alcohol intake: never Substance use: never Substance use type: does not use Lack of Transportation: No Lack of Food: Never True Current Housing: I Have Housing Concerned About Future Housing: No Difficulty Paying Gas/Electric Bills: No Difficulty Paying for Meds: No Currently Unemployed: No Education: Associate Degree Difficulty w/ Childcare or Family Care: No Living arrangements: with family Occupation/Education: retired Spiritual care concerns: No Agree to blood products: Yes Meds Home Medications and Allergies Home Medications ?Medication ?Instructions ?Recorded ?Confirmed ?Type ascorbic acid (vitamin C) 1,000 mg 1,000 mg PO DAILY 05/28/20 07/09/25 History tablet,extended release vitamin B comp and C no.3 15 mg-10 1 cap PO 4XW 05/28/20 07/09/25 History mg-50 mg-5 mg-300 mg capsule (B Complex Plus Vitamin C) metoprolol succinate 25 mg 25 mg PO DAILY 12/09/22 07/09/25 History tablet,extended release 24 hr pantoprazole 20 mg tablet,delayed 20 mg PO .HS 01/18/23 07/09/25 History release budesonide 160 mcg-glycopyr 9 2 inh inhalation BID #32.1 grams 03/09/25 07/09/25 Rx mcg-formot 4.8 mcg/actuation HFA inhaler ([employer]abs) albuterol sulfate 2.5 mg/3 mL See Rx Instructions .Route 03/14/25 07/09/25 Rx (0.083 %) solution for nebulization .COMPLEX #360 mL acetaminophen 325 mg capsule 650 mg PO Q4H PRN fever or pain 04/11/25 07/09/25 History cholecalciferol (vitamin D3) 25 25 mcg PO DAILY 04/11/25 07/09/25 History mcg (1,000 unit) capsule clopidogrel 75 mg tablet 75 mg PO DAILY 04/11/25 07/09/25 History warfarin 5 mg tablet 7.5 mg PO DAILY 04/11/25 07/09/25 History albuterol sulfate 90 mcg/actuation See Rx Instructions .Route 05/14/25 07/09/25 Rx aerosol inhaler .COMPLEX #6.7 ea alprazolam 0.5 mg tablet 0.5 mg PO BID #180 tabs 05/14/25 07/09/25 Rx docusate sodium 100 mg capsule 100 mg PO DAILY #30 caps 05/14/25 07/09/25 Rx atorvastatin 20 mg tablet See Rx Instructions .Route 06/21/25 07/09/25 Rx .COMPLEX #90 tabs furosemide 20 mg tablet 20 mg PO DAILY 07/09/25 07/09/25 History warfarin 10 mg tablet 10 mg PO WEEKLY 07/09/25 07/09/25 History Allergies Allergy/AdvReac Type Severity Reaction Status Date / Time No Known Allergies Allergy Unknown Verified 07/09/25 20:44 Vital Signs Vital Signs - 24 hr 07/09/25 12:51 07/09/25 13:01 07/09/25 13:16 Temperature 97.6 F Pulse Rate 82 90 76 Respiratory Rate 20 18 17 Blood Pressure 157/98 H 157/98 H 144/84 H Pulse Oximetry 93 93 92 Oxygen Delivery Room Air Oxygen Flow Rate 07/09/25 13:41 07/09/25 13:46 07/09/25 14:00 Temperature Pulse Rate 72 84 65 Respiratory Rate 18 13 15 Blood Pressure 141/95 H 121/83 147/90 H Pulse Oximetry 91 88 L 96 Oxygen Delivery Oxygen Flow Rate 07/09/25 14:28 07/09/25 14:31 07/09/25 14:33 Temperature Pulse Rate 86 78 Respiratory Rate 17 19 Blood Pressure 118/79 154/89 H Pulse Oximetry 94 96 96 Oxygen Delivery Nasal Cannula Oxygen Flow Rate 2 07/09/25 14:46 07/09/25 15:31 07/09/25 15:46 Temperature Pulse Rate 68 93 93 Respiratory Rate 14 14 12 Blood Pressure 147/91 H 124/94 H 117/85 Pulse Oximetry 95 95 95 Oxygen Delivery Oxygen Flow Rate 07/09/25 16:45 07/09/25 17:00 07/09/25 17:15 Temperature Pulse Rate 86 83 89 Respiratory Rate 18 23 H 23 H Blood Pressure Pulse Oximetry 93 94 88 L Oxygen Delivery Oxygen Flow Rate 07/09/25 17:24 07/09/25 17:30 07/09/25 17:30 Temperature Pulse Rate 84 82 88 Respiratory Rate 20 20 17 Blood Pressure Pulse Oximetry 99 Oxygen Delivery Oxygen Flow Rate 07/09/25 17:45 07/09/25 18:00 07/09/25 18:12 Temperature Pulse Rate 80 86 84 Respiratory Rate 19 15 Blood Pressure Pulse Oximetry 85 L 93 Oxygen Delivery Oxygen Flow Rate 07/09/25 18:30 07/09/25 18:50 07/09/25 19:00 Temperature Pulse Rate 84 92 89 Respiratory Rate 17 20 17 Blood Pressure 177/99 H Pulse Oximetry 90 79 L 93 Oxygen Delivery Oxygen Flow Rate 07/09/25 19:05 07/09/25 19:15 07/09/25 21:58 Temperature Pulse Rate 82 88 99 Respiratory Rate 18 21 H 20 Blood Pressure 170/97 H Pulse Oximetry 98 98 96 Oxygen Delivery Nasal Cannula Oxygen Flow Rate 2 07/09/25 21:58 07/09/25 22:00 07/10/25 02:37 Temperature 99.2 F Pulse Rate 99 87 105 H Respiratory Rate 20 16 20 Blood Pressure 184/105 H Pulse Oximetry 95 95 Oxygen Delivery Nasal Cannula Oxygen Flow Rate 2 07/10/25 02:37 Temperature Pulse Rate 105 H Respiratory Rate 20 Blood Pressure Pulse Oximetry Oxygen Delivery Oxygen Flow Rate Exam Narrative: Weight 71.4 kg BMI 22.6 Const: Other: Well-developed well-nourished, appears stated age, no acute distress, sitting up on the into the bed with his feet dangling on the side HENMT: Other: nasal cannula in place at 2 L, no oral pharyngeal erythema, head is normocephalic atraumatic Eyes: Other: pupils are equal and reactive, no scleral icterus, no conjunctival pallor Neck: Other: no lymphadenopathy, trachea midline Resp: Other: markedly decreased breath sounds in all choi, faint end expiratory wheezing no tachypnea or increased work of breathing Cardio: Other: regular rate, irregular rhythm, 2+ bilateral radial andpedal pulses, no JVD GI: Other: soft, nontender, nondistended, positive bowel sounds Back/Spine/Pelvis: Other: patient has muscle spasm and tightness of the paraspinal muscles from level of T10 down to the mid lumbar region no overlying warmth or erythema Skin: Other: no jaundice, no pallor Neuro: Other: alert orient x4, speech is clear, no facial asymmetry Extrem: Other: no clubbing, cyanosis or edema Psych: Other: appropriate mood and affect, pleasant and cooperative, judgment and insight intact H&P: Results Labs Labs: Laboratory Tests 07/09/25 14:24 07/09/25 14:24 07/09/25 07/09/25 07/09/25 14:24 16:04 16:18 WBC 11.2 H RBC 4.23 L Hgb 14.8 Hct 43.7 MCV 103.3 H MCH 35.0 H MCHC 33.9 RDW 13.8 Plt Count 273 MPV 10.3 Immature Gran % (Auto) 0.4 Neut % (Auto) 83.3 H Lymph % (Auto) 9.4 L [place] % (Auto) 5.7 Eos % (Auto) 0.8 Baso % (Auto) 0.4 Lymph # (Auto) 1.05 [place] # (Auto) 0.6 Eos # (Auto) 0.1 Baso # (Auto) 0.1 Abs Immat Gran (auto) 0.04 H Absolute Neuts (auto) 9.3 H Absolute Nucleated RBC 0.000 Nucleated RBC % 0.0 PT 25.4 H INR 2.4 APTT 42.5 H Sodium 133 L Potassium 3.2 L Chloride 96 L Carbon Dioxide 27 Anion Gap 10 BUN 17 Creatinine 0.90 Estim Creat Clear Calc 63 Estimated GFR > 60 Glucose 118 H Calcium 8.6 Total Bilirubin 0.5 AST 43 ALT 45 Alkaline Phosphatase 107 Troponin I 0.015 0.016 NT-Pro-B Natriuret Pep 2890 H Total Protein 7.4 Albumin 4.0 Urine Color Yellow Urine Appearance Clear Urine pH 6.0 Ur Specific May 1.026 Urine Protein 1+ H Urine Glucose (UA) Negative Urine Ketones 1+ H Ur Blood (Man) Non-hemolyzed trace Urine Nitrate Negative Urine Bilirubin Negative Urine Urobilinogen 1.0 Leukocyte Esterase Rfl Negative Urine RBC 21-50 H Urine WBC 0-5 Ur Squamous Epith Cells None seen Urine Bacteria None seen Urine Casts 3-5 07/09/25 19:09 WBC RBC Hgb Hct MCV MCH MCHC RDW Plt Count MPV Immature Gran % (Auto) Neut % (Auto) Lymph % (Auto) [place] % (Auto) Eos % (Auto) Baso % (Auto) Lymph # (Auto) [place] # (Auto) Eos # (Auto) Baso # (Auto) Abs Immat Gran (auto) Absolute Neuts (auto) Absolute Nucleated RBC Nucleated RBC % PT INR APTT Sodium Potassium Chloride Carbon Dioxide Anion Gap BUN Creatinine Estim Creat Clear Calc Estimated GFR Glucose Calcium Total Bilirubin AST ALT Alkaline Phosphatase Troponin I 0.013 NT-Pro-B Natriuret Pep Total Protein Albumin Urine Color Urine Appearance Urine pH Ur Specific May Urine Protein Urine Glucose (UA) Urine Ketones Ur Blood (Man) Urine Nitrate Urine Bilirubin Urine Urobilinogen Leukocyte Esterase Rfl Urine RBC Urine WBC Ur Squamous Epith Cells Urine Bacteria Urine Casts Impressions Chest X-Ray 07/09/25 13:42 IMPRESSION: 1. No acute pulmonary lesions. Emphysema lungs. Severe atherosclerotic aorta. Mild cardiomegaly with coronary artery stent in place. Chest/Abdomen/Pelvis CTA 07/09/25 15:32 IMPRESSION: 1. Aortobiiliac endoluminal stent graft spanning a 7.7 x 6.8 cm infrarenal abdominal aortic aneurysm which is similar in size to study from 02/03/2017 but increased in size since an intervening study of 02/22/2019 at which time the aneurysm measured 6.7 x 6.0 cm. No arterial phase endoleak identified however delayed imaging was not obtained which decreases sensitivity. 2. Moderate emphysema. 3. Mild cardiomegaly. 4. Diffuse bladder wall thickening and bladder diverticulum likely related to chronic outlet obstruction from the enlarged prostate. EKG:Test Date: 2025-07-09 13:05:03 Measurements Intervals [place] Rate: P: 0 [place]: 0 QRS: 0 QRSD: 0 T: 0 QT: 0 QTc: 0 Interpretive Statements PROBABLE ATRIAL FIBRILLATION PREMATURE VENTRICULAR CONTRACTION RIGHT BUNDLE BRANCH BLOCK ARTIFACT LIMITS INTERPRETATION ABNORMAL ECG With 2 other additional EKGs also personally reviewed and interpreted which demonstrated AFib inferior HI probable old incomplete bundle-branch block with normal rates and normal intervals Assessment and Plan Assessment and plan (1) Acute respiratory failure with hypoxia: Code(s): J96.01 - Acute respiratory failure with hypoxia Status: Acute (2) COPD exacerbation: Code(s): J44.1 - Chronic obstructive pulmonary disease with (acute) exacerbation Status: Acute (3) Chronic anticoagulation: Code(s): Z79.01 - MCC (current) use of anticoagulants Status: Acute (4) Tobacco abuse: Code(s): Z72.0 - Tobacco use Status: Acute (5) Acute hypokalemia: Code(s): E87.6 - Hypokalemia Status: Acute (6) Hyponatremia: Code(s): E87.1 - Hypo-osmolality and hyponatremia Status: Acute (7) Lumbar paraspinal muscle spasm: Code(s): M62.830 - Muscle spasm of back Status: Acute (8) Lower urinary tract symptoms due to benign prostatic hyperplasia: Code(s): N40.1 - Benign prostatic hyperplasia with lower urinary tract symptoms Status: Acute Plan Patient has acute COPD exacerbation resulting in acute hypoxic respiratory failure with no evidence of lower respiratory tract infection. With improvement in symptoms after receiving IV Solu-Medrol and nebulizer treatments in the ER but no improvement in level of hypoxia. No evidence of pulmonary embolism on CTA on my review. No obvious pneumonia or acute infectious process either. Stable appearance of endovascular graft. Will continue IV Solu-Medrol and scheduled nebulizer treatments will wean oxygen as tolerated for goal oxygen saturations between 88-92%. Patient is still requiring intermittent morphine administration. But pain seems to be musculoskeletal in nature and reproducible on palpation. Patient did receive some Toradol in the ER but this cannot be continued given the patient is on chronic anticoagulation with Coumadin. Patient's INR is therapeutic. Patient does have some mild hypokalemia will give 40 mEq potassium chloride this morning and then repeat level tomorrow. Will check magnesium level with tomorrow's labs. Given mild leukocytosis will repeat CBC in a.m. although I would not be surprised if white count went due to active steroid administration. Will continue patient's home inhaled beta agonist/steroid inhaler. at the time of my evaluation the patient reports he feels significantly better and he is eager to go home. Will attempt to wean the patient off oxygen and if he is able to ambulate without hypoxia he may be be able to be discharged today but I did inform him that this was not a guarantee . patient's pain is in the paraspinal muscles with associated muscle spasm on exam his pain was significantly improved with use of there a gun and heating pad. I suspect the patient likely strained his back muscles when he was walking around the store. This likely triggered a vagal response causing him to become nauseous and diaphoretic. He has not had a recurrence of his diaphoresis or nausea since his pain is been controlled. order being chery and continue lidocaine patch as needed will add Flexeril. Will discontinue morphine. And will change pain scale for [place] to p.r.n. forpain 7-10 Patient does have history of systolic heart failure but most recent echocardiogram last year demonstrated normalization of EF and patient appears euvolemic. Will continue home metoprolol and Lasix. although the patient denies history of BPH this is listed under his past medical history. He is agreeable to starting Flomax help with some of his symptoms. It was discussed with him that I will take 68 weeks to see any benefit in symptoms in that he will need to have patient's until a medication Begins to work. Patient has been admitted as observation status. MEDICAL DECISION MAKING NARRATIVE -Spoke with the ED provider in detail regarding patient's evaluation, workup and management -Patient seen and examined at bedside -Collaborated with patient's nurse at the bedside in detail and addressed all concerns -Labs, electrolytes, radiology, investigations and test results personally reviewed and interpreted unless otherwise specified -ED/Consult/Nursing/Ancilliary notes on the chart reviewed and appreciated -Spoke with patient at bedside and diagnosis and plan of care was discussed. All questions answered. Quality VTE Prophylaxis VTE prophylaxis: pharmacologic ordered (Continue home Coumadin with goal INR 2-3) Hospitalist [facility] Advance Care Plan I have confirmed that the patient's Advanced Care Plan is present, code status is documented, or surrogate decision maker is listed in patient medical record.: Yes Medication Reconciliation I have utilized all available resources to obtain, update and review the patients current medications (includes all prescriptions, OTC, herbals, cannabis, and nutritional supplements).: Yes
[2025-07-10] MEDS: POTASSIUM CHLORIDE 20 MEQ ER TABLET 40 MEQ PO (07:16)
--- NOTE | 2025-07-10 07:45 | P.PNIM_ITS ---
Progress Note: A&P Assessment and Plan (1) Acute respiratory failure with hypoxia: Code(s): J96.01 - Acute respiratory failure with hypoxia Status: Acute Assessment and Plan: Symptoms SpO2: Oxygen supplementation: Suspected cause: ABG: EKG: D dimer: Chest XR: (2) COPD exacerbation: Code(s): J44.1 - Chronic obstructive pulmonary disease with (acute) exacerbation Status: Acute Assessment and Plan: Monitor vital signs, I&Os, neuro status and patient is a fall risk Monitor serum electrolytes, cultures and CBC Monitor Oxygen saturation, Oxygen via NC; wean oxygen as tolerated, keep SpO2 greater than 88% Send sputum cultures if possible Levaquin q24H or Azithromycin 500mg Duonebz q6H and Albuterol q2H prn Solu-Medrol 40 mg IVq12H (3) Back pain: Qualifiers: Back pain location: back pain in other location Chronicity: acute Qualified Code(s): M54.89 - Other dorsalgia Code(s): M54.9 - Dorsalgia, unspecified Status: Acute Assessment and Plan: * musculoskeletal in nature * Tylenol and lidocaine patch as needed (4) Electrolyte imbalance: Code(s): E87.8 - Other disorders of electrolyte and fluid balance, not elsewhere classified Status: Acute Assessment and Plan: * ED workup: K 3.2, Na 132 (5) Chronic anticoagulation: Code(s): Z79.01 - prison (current) use of anticoagulants Status: Acute (6) Tobacco abuse: Code(s): Z72.0 - Tobacco use Status: Acute Subjective Date/time seen: 07/10/25 07:45 Interval history: 74-year-old with a past medical history of COPD with continued tobacco use, CAD, HTN, AAA w/ endovascular stent 2017 among other comorbidities who presents with left upper flank pain radiating up into the chest. Review of Systems Review of Systems: 12 systems were reviewed with pertinent positives and negatives per HPI. Except as documented in the HPI, all other systems were reviewed and are negative. Exam Narrative: Weight 71.4 kg BMI 22.6 Objective Data Vital Signs Vital Signs: Vital Signs - 24 hr 07/09/25 12:51 07/09/25 13:01 07/09/25 13:16 Temperature 97.6 F Pulse Rate 82 90 76 Respiratory Rate 20 18 17 Blood Pressure 157/98 H 157/98 H 144/84 H Pulse Oximetry 93 93 92 Oxygen Delivery Room Air Oxygen Flow Rate 07/09/25 13:41 07/09/25 13:46 07/09/25 14:00 Temperature Pulse Rate 72 84 65 Respiratory Rate 18 13 15 Blood Pressure 141/95 H 121/83 147/90 H Pulse Oximetry 91 88 L 96 Oxygen Delivery Oxygen Flow Rate 07/09/25 14:28 07/09/25 14:31 07/09/25 14:33 Temperature Pulse Rate 86 78 Respiratory Rate 17 19 Blood Pressure 118/79 154/89 H Pulse Oximetry 94 96 96 Oxygen Delivery Nasal Cannula Oxygen Flow Rate 2 07/09/25 14:46 07/09/25 15:31 07/09/25 15:46 Temperature Pulse Rate 68 93 93 Respiratory Rate 14 14 12 Blood Pressure 147/91 H 124/94 H 117/85 Pulse Oximetry 95 95 95 Oxygen Delivery Oxygen Flow Rate 07/09/25 16:45 07/09/25 17:00 07/09/25 17:15 Temperature Pulse Rate 86 83 89 Respiratory Rate 18 23 H 23 H Blood Pressure Pulse Oximetry 93 94 88 L Oxygen Delivery Oxygen Flow Rate 07/09/25 17:24 07/09/25 17:30 07/09/25 17:30 Temperature Pulse Rate 84 82 88 Respiratory Rate 20 20 17 Blood Pressure Pulse Oximetry 99 Oxygen Delivery Oxygen Flow Rate 07/09/25 17:45 07/09/25 18:00 07/09/25 18:12 Temperature Pulse Rate 80 86 84 Respiratory Rate 19 15 Blood Pressure Pulse Oximetry 85 L 93 Oxygen Delivery Oxygen Flow Rate 07/09/25 18:30 07/09/25 18:50 07/09/25 19:00 Temperature Pulse Rate 84 92 89 Respiratory Rate 17 20 17 Blood Pressure 177/99 H Pulse Oximetry 90 79 L 93 Oxygen Delivery Oxygen Flow Rate 07/09/25 19:05 07/09/25 19:15 07/09/25 21:58 Temperature Pulse Rate 82 88 99 Respiratory Rate 18 21 H 20 Blood Pressure 170/97 H Pulse Oximetry 98 98 96 Oxygen Delivery Nasal Cannula Oxygen Flow Rate 2 07/09/25 21:58 07/09/25 22:00 07/10/25 02:37 Temperature 99.2 F Pulse Rate 99 87 105 H Respiratory Rate 20 16 20 Blood Pressure 184/105 H Pulse Oximetry 95 95 Oxygen Delivery Nasal Cannula Oxygen Flow Rate 2 07/10/25 02:37 07/10/25 06:00 07/10/25 06:33 Temperature 98.3 F Pulse Rate 105 H 104 H Respiratory Rate 20 16 Blood Pressure 140/76 Pulse Oximetry 95 96 Oxygen Delivery Nasal Cannula Oxygen Flow Rate 2 Intake/Output Intake/Output: Intake & Output 07/07/25 07/08/25 07/09/25 07/10/25 23:59 23:59 23:59 23:59 Intake Total 200 Balance 200 Meds/Results Medications: Active Medications Generic Name Dose Route Start Last Admin Trade Name Freq PRN Reason Stop Dose Admin Acetaminophen 650 mg 07/09/25 18:48 07/09/25 20:08 Acetaminophen 325 Mg Tablet PO 650 mg Q4H PRN Administration Mild Pain (1-3) or Fever Hydrocodone Bitart/Acetaminophen 1 tab 07/09/25 18:48 07/09/25 22:33 Hydrocodone/Acetaminophen (*Crx) 5-325 Mg Tablet PO 1 tab Q4H PRN Administration Pain Rated 4-6 Albuterol/Ipratropium 3 ml 07/09/25 20:00 07/10/25 02:37 Ipratropium 0.5 Mg/Albuterol Sulfate 2.5 Mg (Base) Ampul.Neb 3 Ml INHALATION 3 ml Q6HRT YANIRA Administration Alprazolam 0.5 mg 07/10/25 09:00 Alprazolam (*Crx) 0.5 Mg Tablet PO BID YANIRA Atorvastatin Calcium 20 mg 07/10/25 21:00 Atorvastatin 20 Mg Tablet PO HS YANIRA Clopidogrel Bisulfate 75 mg 07/10/25 09:00 Clopidogrel Bisulfate 75 Mg Tablet PO DAILY YANIRA Docusate Sodium 100 mg 07/10/25 09:00 Docusate Sodium 100 Mg Capsule PO DAILY YANIRA Fluticasone/Umeclidinium/Vilanterol 1 puff 07/10/25 08:00 Fluticasone/Umeclidin/Vilanter 100-62.5-25 Mcg Ellipta INHALATION DAILYRT YANIRA Furosemide 20 mg 07/10/25 09:00 Furosemide 20 Mg Tablet PO DAILY YANIRA Lidocaine 1 patch 07/09/25 23:30 07/10/25 00:20 Lidocaine 5% Patch TRANSDERM 1 patch DAILY YANIRA Administration Methylprednisolone Sodium Succinate 60 mg 07/10/25 00:00 07/10/25 07:16 Methylprednisolone Sod Succ 125 Mg Vial IV PUSH 60 mg Q6HR YANIRA Administration Metoprolol Succinate 25 mg 07/10/25 09:00 Metoprolol Succinate Ext Rel 25 Mg Tabcr PO DAILY [facility] Morphine Sulfate 2 mg 07/09/25 18:48 07/10/25 01:31 Morphine Sulfate (*Crx) 4 Mg/Ml Inj IV PUSH 2 mg Q2H PRN Administration Pain Rated 7-10 Ondansetron HCl 4 mg 07/09/25 18:48 07/09/25 23:09 Ondansetron Inj 4 Mg/2 Ml Vial IV PUSH 4 mg Q4H PRN Administration Nausea Pantoprazole Sodium 20 mg 07/10/25 21:00 Pantoprazole Sod Sesquihydrate 20 Mg Tab PO HS [facility] Vitamin D 25 mcg 07/10/25 09:00 Cholecalciferol (Vitamin D3) 25 Mcg (1,000 Units) Tablet PO DAILY [facility] Warfarin Sodium 7.5 mg 07/10/25 17:00 Warfarin (*Pbkc) 7.5 Mg Tablet PO [id number]@1700 [facility] Warfarin Sodium 10 mg 07/13/25 17:00 Warfarin (*Pbkc) 10 Mg Tablet PO Fr@1700 [facility] Radiology Results: ITS Impressions Chest X-Ray 07/09/25 13:42 IMPRESSION: 1. No acute pulmonary lesions. Emphysema lungs. Severe atherosclerotic aorta. Mild cardiomegaly with coronary artery stent in place. Chest/Abdomen/Pelvis CTA 07/09/25 15:32 IMPRESSION: 1. Aortobiiliac endoluminal stent graft spanning a 7.7 x 6.8 cm infrarenal abdominal aortic aneurysm which is similar in size to study from 02/03/2017 but increased in size since an intervening study of 02/22/2019 at which time the aneurysm measured 6.7 x 6.0 cm. No arterial phase endoleak identified however delayed imaging was not obtained which decreases sensitivity. 2. Moderate emphysema. 3. Mild cardiomegaly. 4. Diffuse bladder wall thickening and bladder diverticulum likely related to chronic outlet obstruction from the enlarged prostate. Labs Labs: Laboratory Results - last 24 hr 07/09/25 07/09/25 07/09/25 14:24 16:04 16:18 WBC 11.2 H RBC 4.23 L Hgb 14.8 Hct 43.7 MCV 103.3 H MCH 35.0 H MCHC 33.9 RDW 13.8 Plt Count 273 MPV 10.3 Immature Gran % (Auto) 0.4 Neut % (Auto) 83.3 H Lymph % (Auto) 9.4 L Centre % (Auto) 5.7 Eos % (Auto) 0.8 Baso % (Auto) 0.4 Lymph # (Auto) 1.05 Centre # (Auto) 0.6 Eos # (Auto) 0.1 Baso # (Auto) 0.1 Abs Immat Gran (auto) 0.04 H Absolute Neuts (auto) 9.3 H Absolute Nucleated RBC 0.000 Nucleated RBC % 0.0 PT 25.4 H INR 2.4 APTT 42.5 H Sodium 133 L Potassium 3.2 L Chloride 96 L Carbon Dioxide 27 Anion Gap 10 BUN 17 Creatinine 0.90 Estim Creat Clear Calc 63 Estimated GFR > 60 Glucose 118 H Calcium 8.6 Total Bilirubin 0.5 AST 43 ALT 45 Alkaline Phosphatase 107 Troponin I 0.015 0.016 NT-Pro-B Natriuret Pep 2890 H Total Protein 7.4 Albumin 4.0 Urine Color Yellow Urine Appearance Clear Urine pH 6.0 Ur Specific [place] 1.026 Urine Protein 1+ H Urine Glucose (UA) Negative Urine Ketones 1+ H Ur Blood (Man) Non-hemolyzed trace Urine Nitrate Negative Urine Bilirubin Negative Urine Urobilinogen 1.0 Leukocyte Esterase Rfl Negative Urine RBC 21-50 H Urine WBC 0-5 Ur Squamous Epith Cells None seen Urine Bacteria None seen Urine Casts 3-5 07/09/25 19:09 WBC RBC Hgb Hct MCV MCH MCHC RDW Plt Count MPV Immature Gran % (Auto) Neut % (Auto) Lymph % (Auto) Centre % (Auto) Eos % (Auto) Baso % (Auto) Lymph # (Auto) Centre # (Auto) Eos # (Auto) Baso # (Auto) Abs Immat Gran (auto) Absolute Neuts (auto) Absolute Nucleated RBC Nucleated RBC % PT INR APTT Sodium Potassium Chloride Carbon Dioxide Anion Gap BUN Creatinine Estim Creat Clear Calc Estimated GFR Glucose Calcium Total Bilirubin AST ALT Alkaline Phosphatase Troponin I 0.013 NT-Pro-B Natriuret Pep Total Protein Albumin Urine Color Urine Appearance Urine pH Ur Specific [place] Urine Protein Urine Glucose (UA) Urine Ketones Ur Blood (Man) Urine Nitrate Urine Bilirubin Urine Urobilinogen Leukocyte Esterase Rfl Urine RBC Urine WBC Ur Squamous Epith Cells Urine Bacteria Urine Casts Quality VTE Prophylaxis VTE prophylaxis: pharmacologic ordered (Continue home Coumadin with goal INR 2- 3)
[2025-07-10] MEDS: HYDROcodone/acetaminophen (*CRX) 5-325 MG TABLET 1 TAB PO (08:41)
[2025-07-10] MEDS: CHOLECALCIFEROL (VITAMIN D3) 25 MCG (1,000 UNITS) TABLET PO (08:42)
[2025-07-10] MEDS: DOCUSATE SODIUM 100 MG CAPSULE PO (08:42)
[2025-07-10] MEDS: METOPROLOL SUCCINATE EXT REL 25 MG TABCR PO (08:42)
[2025-07-10] MEDS: FUROSEMIDE 20 MG TABLET PO (08:42)
[2025-07-10] MEDS: ALPRAZolam (*CRX) 0.5 MG TABLET PO (08:42)
[2025-07-10] MEDS: CLOPIDOGREL BISULFATE 75 MG TABLET PO (08:42)
[2025-07-10 08:50] LABS: Hematocrit 39.4 % (42.0-52.0); Hemoglobin 13.4 g/dL (14.0-18.0); Immature Granulocyte Percent A 0.5 % (0-0.5); Lymphocytes Absolute Auto 0.51 K/mm3 (0.9-3.2); Mean Corpuscular HGB Conc 34.0 g/dl (32-36); Mean Corpuscular Hemoglobin 34.2 pg (26-34); Mean Corpuscular Volume 100.5 fl (80-100); Nucleated Red Blood Cells Absolute Auto 0.020 K/mm3 (0.0-0.012); Nucleated Red Blood Cells Perc 0.2 % (0.0-0.2); Platelet Count Result 257 k/mm3 (150-375); Red Blood Count 3.92 M/mm3 (4.6-6.20); White Blood Count 11.4 K/mm3 (4.5-10.0)
[2025-07-10 09:10] LABS: Alanine Aminotransferase 48 U/L (6-50); Albumin Level 4.1 g/dL (3.5-5.1); Alkaline Phosphatase 105 U/L (38-126); Anion Gap 8 mmol/L (4-12); Aspartate Amino Transferase 50 U/L (17-59); Bilirubin,Total 0.5 mg/dL (0.2-1.3); Blood Urea Nitrogen 19 mg/dL (9-20); Calcium 9.2 mg/dL (8.4-10.2); Carbon Dioxide 29 mmol/L (22-30); Chloride 94 mmol/L (98-107); Estimated CRCL calculation 60 ml/min; Estimated Glomerular Filt Rate > 60; Glucose 133 mg/dL (65-110); Potassium 4.2 mmol/L (3.4-5.0); Sodium 131 mmol/L (137-145); Total Protein 7.5 g/dL (6.3-8.2)
[2025-07-10] MEDS: CYCLOBENZAPRINE HCL 5 MG TABLET PO (09:52)
[2025-07-10] MEDS: TAMSULOSIN HCL 0.4 MG CAPSULE PO (09:52)
[2025-07-10] MEDS: FLUTICASONE/UMECLIDIN/VILANTER 100-62.5-25 MCG ELLIPTA 1 PUFF INHALATION (11:25)
--- NOTE | 2025-07-10 14:08 | P.DS_ITS ---
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 Status: Acute (4) Tobacco abuse: Code(s): Z72.0 - Tobacco use Status: Acute (5) Acute hypokalemia: Code(s): E87.6 - Hypokalemia Status: Acute (6) Hyponatremia: Code(s): E87.1 - Hypo-osmolality and hyponatremia Status: Acute (7) Lumbar paraspinal muscle spasm: Code(s): M62.830 - Muscle spasm of back Status: Acute (8) Lower urinary tract symptoms due to benign prostatic hyperplasia: Code(s): N40.1 - Benign prostatic hyperplasia with lower urinary tract symptoms Status: Acute Plan Patient has acute COPD exacerbation resulting in acute hypoxic respiratory failure with no evidence of lower respiratory tract infection. With improvement in symptoms after receiving IV Solu-Medrol and nebulizer treatments in the ER but no improvement in level of hypoxia. No evidence of pulmonary embolism on CTA on my review. No obvious pneumonia or acute infectious process either. Stable appearance of endovascular graft. Will continue IV Solu-Medrol and scheduled nebulizer treatments will wean oxygen as tolerated for goal oxygen saturations between 88-92%. Patient is still requiring intermittent morphine administration. But pain seems to be musculoskeletal in nature and reproducible on palpation. Patient did receive some Toradol in the ER but this cannot be continued given the patient is on chronic anticoagulation with Coumadin. Patient's INR is therapeutic. Patient does have some mild hypokalemia will give 40 mEq potassium chloride this morning and then repeat level tomorrow. Will check magnesium level with tomorrow's labs. Given mild leukocytosis will repeat CBC in a.m. although I would not be surprised if white count went due to active steroid administration. Will continue patient's home inhaled beta agonist/steroid inhaler. at the time of my evaluation the patient reports he feels significantly better and he is eager to go home. Will attempt to wean the patient off oxygen and if he is able to ambulate without hypoxia he may be be able to be discharged today but I did inform him that this was not a guarantee . patient's pain is in the paraspinal muscles with associated muscle spasm on exam his pain was significantly improved with use of there a gun and heating pad. I suspect the patient likely strained his back muscles when he was walking around the store. This likely triggered a vagal response causing him to become nauseous and diaphoretic. He has not had a recurrence of his diaphoresis or nausea since his pain is been controlled. order being chery and continue lidocaine patch as needed will add Flexeril. Will discontinue morphine. And will change pain scale for [place] to p.r.n. forpain 7-10 Patient does have history of systolic heart failure but most recent echocardiogram last year demonstrated normalization of EF and patient appears euvolemic. Will continue home metoprolol and Lasix. although the patient denies history of BPH this is listed under his past medical history. He is agreeable to starting Flomax help with some of his symptoms. It was discussed with him that I will take 68 weeks to see any benefit in symptoms in that he will need to have patient's until a medication Begins to work. Patient has been admitted as observation status. MEDICAL DECISION MAKING NARRATIVE -Spoke with the ED provider in detail regarding patient's evaluation, workup and management -Patient seen and examined at bedside -Collaborated with patient's nurse at the bedside in detail and addressed all concerns -Labs, electrolytes, radiology, investigations and test results personally reviewed and interpreted unless otherwise specified -ED/Consult/Nursing/Ancilliary notes on the chart reviewed and appreciated -Spoke with patient at bedside and diagnosis and plan of care was discussed. All questions answered. DS: Summary Hospital Course Reason for hospitalization: Left flank pain up into his back Hospital Course: The patient is a 74-year-old male with a complex medical history including COPD, coronary artery disease, hypertension, abdominal aortic aneurysm with endovascular stent, paroxysmal atrial fibrillation on chronic anticoagulation, systolic heart failure (with normalized EF), and benign prostatic hyperplasia, who presented with acute onset of severe left upper flank pain radiating to the posterior ribcage, associated with nausea and diaphoresis. On arrival, he was found to be hypoxic with oxygen saturations in the high 80s to low 90s on room air, requiring supplemental oxygen. He was also noted to have mild leukocytosis, hypokalemia, and hyponatremia. Imaging, including chest X-ray and CTA of the chest/abdomen/pelvis, revealed stable but enlarged infrarenal abdominal aortic aneurysm with endoluminal stent graft, no evidence of endoleak, moderate emphysema, and no acute pulmonary or urologic pathology. EKGs demonstrated atrial fibrillation with right bundle branch block and evidence of prior inferior MA. The patient was managed for an acute COPD exacerbation with hypoxic respiratory failure, receiving IV Solu-Medrol and scheduled nebulizer treatments, with gradual improvement in symptoms but persistent oxygen req uirement. His musculoskeletal pain was attributed to lumbar paraspinal muscle spasm, likely from strain during activity, and improved with non-opioid measures including massage, heating pad, and muscle relaxants; opioids were discontinued. Potassium supplementation was initiated for hypokalemia, and his chronic medications were continued. Lower urinary tract symptoms were addressed with the initiation of tamsulosin. Throughout his stay, he remained hemodynamically stable, with no evidence of infection or acute cardiac decompensation. The patient?s respiratory status improved, and he was weaned to goal oxygen saturations. He was observed for further improvement and by the afternoon of 07/10, patients symptoms have otherwise subsided. He states his flank pain has subsided and he does not feel short of breath. Multiple attempts have been made to wean patient off O2, his o2 saturations with 1 L nasal cannula have been around 95%, however on 0 L nasal cannula, oxygen tends to dip to 86%. Patient has an oximeter at home and states that his oxygen can get as low as 90% regularly on no oxygen supplementation. At this time he does not feel short of breath and states that he feels that around his baseline. Will order a home O2 evaluation through respiratory for any further oxygen supplementation needs upon discharge. Patient is otherwise hemodynamically stable for discharge at this time. Will instruct him to follow up with his director of strategy & mobile in the outpatient setting. Upon chart review appears that he follows with Dr. Scott. Status at Discharge Functional status at discharge: independent ambulation Overall status at discharge: patient is back to baseline Time Spent with Patient Time attestation: Total time spent providing and/or coordinating discharge services: 31 Exam Narrative: Weight 71.4 kg BMI 22.6 Const: Other: Well-developed well-nourished, appears stated age, no acute distress, sitting up on the into the bed with his feet dangling on the side HENMT: Other: nasal cannula in place at 2 L, no oral pharyngeal erythema, head is normocephalic atraumatic Eyes: Other: pupils are equal and reactive, no scleral icterus, no conjunctival pallor Neck: Other: no lymphadenopathy, trachea midline Resp: Other: markedly decreased breath sounds in all choi, no increased work of breath or tachypnea Cardio: Other: regular rate, irregular rhythm, 2+ bilateral radial andpedal pulses, no JVD GI: Other: soft, nontender, nondistended, positive bowel sounds Back/Spine/Pelvis: Other: patient has muscle spasm and tightness of the paraspinal muscles from level of T10 down to the mid lumbar region no overlying warmth or erythema Skin: Other: no jaundice, no pallor Neuro: Other: alert orient x4, speech is clear, no facial asymmetry Extrem: Other: no clubbing, cyanosis or edema Psych: Other: appropriate mood and affect, pleasant and cooperative, judgment and insight intact DS: Data Data Completed and Pending Labs on day of discharge: Labs from last 24 hours 07/10/25 07/09/25 07/09/25 08:23 19:09 16:18 WBC 11.4 H RBC 3.92 L Hgb 13.4 L Hct 39.4 L MCV 100.5 H MCH 34.2 H MCHC 34.0 RDW 13.7 Plt Count 257 MPV 9.9 Immature Gran % (Auto) 0.5 Neut % (Auto) 92.1 H Lymph % (Auto) 4.5 L [place] % (Auto) 2.8 Eos % (Auto) 0.0 Baso % (Auto) 0.1 L Lymph # (Auto) 0.51 L [place] # (Auto) 0.3 Eos # (Auto) 0.0 Baso # (Auto) 0.0 Abs Immat Gran (auto) 0.06 H Absolute Neuts (auto) 10.5 H Absolute Nucleated RBC 0.020 H Nucleated RBC % 0.2 PT INR APTT Sodium 131 L Potassium 4.2 Chloride 94 L Carbon Dioxide 29 Anion Gap 8 BUN 19 Creatinine 0.90 Estim Creat Clear Calc 60 Estimated GFR > 60 Glucose 133 H Calcium 9.2 Total Bilirubin 0.5 AST 50 ALT 48 Alkaline Phosphatase 105 Troponin I 0.013 0.016 NT-Pro-B Natriuret Pep Total Protein 7.5 Albumin 4.1 Urine Color Urine Appearance Urine pH Ur Specific [place] Urine Protein Urine Glucose (UA) Urine Ketones Ur Blood (Man) Urine Nitrate Urine Bilirubin Urine Urobilinogen Leukocyte Esterase Rfl Urine RBC Urine WBC Ur Squamous Epith Cells Urine Bacteria Urine Casts 07/09/25 07/09/25 16:04 14:24 WBC 11.2 H RBC 4.23 L Hgb 14.8 Hct 43.7 MCV 103.3 H MCH 35.0 H MCHC 33.9 RDW 13.8 Plt Count 273 MPV 10.3 Immature Gran % (Auto) 0.4 Neut % (Auto) 83.3 H Lymph % (Auto) 9.4 L [place] % (Auto) 5.7 Eos % (Auto) 0.8 Baso % (Auto) 0.4 Lymph # (Auto) 1.05 [place] # (Auto) 0.6 Eos # (Auto) 0.1 Baso # (Auto) 0.1 Abs Immat Gran (auto) 0.04 H Absolute Neuts (auto) 9.3 H Absolute Nucleated RBC 0.000 Nucleated RBC % 0.0 PT 25.4 H INR 2.4 APTT 42.5 H Sodium 133 L Potassium 3.2 L Chloride 96 L Carbon Dioxide 27 Anion Gap 10 BUN 17 Creatinine 0.90 Estim Creat Clear Calc 63 Estimated GFR > 60 Glucose 118 H Calcium 8.6 Total Bilirubin 0.5 AST 43 ALT 45 Alkaline Phosphatase 107 Troponin I 0.015 NT-Pro-B Natriuret Pep 2890 H Total Protein 7.4 Albumin 4.0 Urine Color Yellow Urine Appearance Clear Urine pH 6.0 Ur Specific [place] 1.026 Urine Protein 1+ H Urine Glucose (UA) Negative Urine Ketones 1+ H Ur Blood (Man) Non-hemolyzed trace Urine Nitrate Negative Urine Bilirubin Negative Urine Urobilinogen 1.0 Leukocyte Esterase Rfl Negative Urine RBC 21-50 H Urine WBC 0-5 Ur Squamous Epith Cells None seen Urine Bacteria None seen Urine Casts 3-5 Discharge Plan Discharge Attending physician on discharge: Darrell Cisneros Consulting providers: Jayjay Seals Discharging Clinician: Jayjay Seals Anticipated Discharge Date/Time: 07/10/25 14:00 Patient Disposition: Home Activity: as tolerated Diet: regular Discharge Instructions: Discharge disposition: home Take medications as prescribed. You are going to be prescribed Flexeril to take 3 times daily as needed. You will also be prescribed lidocaine patches to apply to your left lower back for the next 3 days. You will also be prescribed 40 mg prednisone to be taken for the next 4 days. Monitor blood pressures Take caution while standing, rising, or moving Change positions slowly taking a break between each position change If you standing feel dizzy sit back down and take a break Encouraged to continue with yearly vaccinations Return to the emergency department if you develop sudden shortness of breath, chest pain, nausea, vomiting, upset stomach or intractable diarrhea Return to the emergency department if you develop fever greater than 101.5 Follow-up with the primary care physician within 1-2 weeks Follow-up with your director of strategy & mobile as soon as possible. Thank you for choosing [facility] for your healthcare needs Patient Instructions: Antibiotic Form, Warfarin (By mouth) Patient Language: Lao Stand Alone Forms: General Discharge Information Follow-up/Referrals: Austin,MD Erma [Primary Care Provider, Family Practice] Manish Scott MD [Physician, Pulmonology] Discharge Medications: New cyclobenzaprine 5 mg tablet 5 mg PO TID PRN (Reason: muscle spasm) 5 Days Qty: 15 0RF lidocaine 4 % adhesive patch,medicated 1 patch topical DAILY PRN (Reason: pain) Qty: 5 0RF prednisone 20 mg tablet 40 mg PO DAILY Qty: 8 0RF Continued ascorbic acid (vitamin C) 1,000 mg tablet extended release 1,000 mg PO DAILY B Complex Plus Vitamin C [id number] mg capsule 1 cap PO 4XW Patient Comments: every other days starting in Wednesday Rx Instructions: give with food (meal/snack) pantoprazole 20 mg tablet,delayed release (DR/EC) 20 mg PO .HS metoprolol succinate 25 mg tablet extended release 24 hr 25 mg PO DAILY clopidogrel 75 mg tablet 75 mg PO DAILY warfarin 5 mg tablet 7.5 mg PO DAILY Rx Instructions: Sun - and Wednesday cholecalciferol (vitamin D3) 25 mcg (1,000 unit) capsule 25 mcg PO DAILY acetaminophen 325 mg capsule 650 mg PO Q4H PRN (Reason: fever or pain) furosemide 20 mg tablet 20 mg PO DAILY warfarin 10 mg tablet 10 mg PO WEEKLY Rx Instructions: on wednesday Breztri Aerosphere 160-9-4.8 mcg/actuation HFA aerosol inhaler 2 inh inhalation BID Qty: 32.1 3RF Rx Instructions: Rinse mouth and spit after each use. Use with spacer. albuterol sulfate 2.5 mg /3 mL (0.083 %) solution for nebulization See Rx Instructions .ROUTE .COMPLEX Qty: 360 5RF Dose Instruction: INHALE 2.5 MG (3 ML) BY MOUTH EVERY 6 HOURS NEEDED FOR SHORTNESS OF BREATH OR WHEEZING Rx Instructions: INHALE 2.5 MG (3 ML) BY MOUTH EVERY 6 HOURS NEEDED FOR SHORTNESS OF BREATH OR WHEEZING docusate sodium 100 mg capsule 100 mg PO DAILY Qty: 30 3RF alprazolam 0.5 mg tablet 0.5 mg PO BID Qty: 180 0RF albuterol sulfate 90 mcg/actuation HFA aerosol inhaler See Rx Instructions .ROUTE .COMPLEX Qty: 6.7 5RF Dose Instruction: INHALE 1-2 PUFFS BY MOUTH EVERY 4-6 HOURS NEEDED FOR SHORTNESS OF BREATH OR WHEEZING Rx Instructions: INHALE 1-2 PUFFS BY MOUTH EVERY 4-6 HOURS NEEDED FOR SHORTNESS OF BREATH OR WHEEZING atorvastatin 20 mg tablet See Rx Instructions .ROUTE .COMPLEX Qty: 90 3RF Dose Instruction: TAKE 1 TABLET AT BEDTIME Rx Instructions: TAKE 1 TABLET AT BEDTIME Date of admission: 07/09/25 18:48 Primary Care Provider: MaureenErma Admitting Provider: Darrell Cisneros Attending physician on admission: Darrell Cisneros Condition: Stable Quality VTE Prophylaxis VTE prophylaxis: pharmacologic ordered (Continue home Coumadin with goal INR 2- 3)
--- NOTE | 2025-07-10 16:16 | PCRCNOTE ---
Patient refused RT to set up home oxygen after walk study completed. Pt needs 3 LNC to keep Sp02 at 92%. Patient got dressed and was at nursing station on room air stating he was going home. hoop punch and coiler operator helper Vicki aware and asking him to sign AMA forms. warehouse traffic supervisor aware.
== END 2025-07-10 16:10 | disposition home or self-care (01) ==
LOC: ANHED 13:11 → ANH3MEDSUR 20:14
PROVIDERS: Physician Assistant; Admitting Provider Internal Medicine; Emergency Provider Emergency Medicine; PCP Family Medicine; Visit Provider Internal Medicine
DX: J96.01 Acute respiratory failure with hypoxia (principal); J44.1 Chronic obstructive pulmonary disease with (acute) exacerbation; E87.6 Hypokalemia; E87.1 Hypo-osmolality and hyponatremia; M62.830 Muscle spasm of back; E78.5 Hyperlipidemia, unspecified; N40.1 Benign prostatic hyperplasia with lower urinary tract symptoms; I10 Essential (primary) hypertension; K21.9 Gastro-esophageal reflux disease without esophagitis; I25.10 Atherosclerotic heart disease of native coronary artery without angina pectoris; F17.210 Nicotine dependence, cigarettes, uncomplicated; I48.0 Paroxysmal atrial fibrillation; Z79.01 Long term (current) use of anticoagulants
CPT/HCPCS: 36415; 71046; 71275; 74174; 80053; 81001; 83880; 84484; 85025; 85610; 85730; 93005; 94618; 94640; 96374; 96375; 96376; 99285; A9270; G0378; J1885; J2270; J2405; J2919; Q9967